=== PATIENT | male | born 1940 | race Caucasian/White ===

== ENCOUNTER → 2023-09-26 14:08 | Outpatient (REF) | payer MEDICARE, OTHER, SELFPAY | LOC: HWRCS 14:08 | PROVIDERS: ATTENDING PHYSICIAN Physician Assistant; FAMILY PHYSICIAN Internal Medicine | DX: I10 Essential (primary) hypertension (principal); R94.31 Abnormal electrocardiogram [ECG] [EKG] | CPT/HCPCS: 93306 ==

== ENCOUNTER → 2024-06-04 07:16 | Outpatient (REF) | payer MEDICARE, OTHER, SELFPAY ==
[2024-06-04 08:17] LABS: % Eosinophils 4.6 % (0-6); % Immature Granulocytes 0.3 % (0-0.5); % Lymphocytes 19.3 % (20.5-51.1); % Monocytes 12.3 % (1.7-9.3); % Neutrophils 62.5 % (42.2-75.2); Absolute Basophils 0.1 10^3/uL (0-0.2); Absolute Eosinophils 0.3 10^3/uL (0-0.7); Absolute Lymphocytes 1.4 10^3/uL (1.2-3.4); Absolute Monocytes 0.9 10^3/uL (0.1-0.6); Absolute Neutrophils 4.5 10^3/uL (1.4-6.5); Hematocrit 40.7 % (39.0-52.0); Hemoglobin 13.8 g/dL (13.0-18.0); Mean Corp Hgb Conc. 33.9 g/dL (33.0-37.0); Mean Corpuscular Hgb 30.4 pg (27.0-31.0); Mean Corpuscular Volume 89.6 fL (80.0-94.0); Mean Platelet Volume 10.6 fL (7.4-10.4); Nucleated Red Blood Cells % 0 % (-); Platelet Count 306 10^3/uL (130-400); Red Blood Cell Count 4.54 10^6/uL (4.70-6.10); White Blood Cell Count 7.2 10^3/uL (4.8-10.8)
[2024-06-04 08:36] LABS: Urine Albumin Negative (Neg - Trace); Urine Bilirubin Negative (Negative); Urine Character Clear (Clear); Urine Color Yellow; Urine Glucose Negative (Negative); Urine Ketone Negative (Negative); Urine Leukocyte Negative (Negative); Urine Nitrite Negative (Negative); Urine Occult Blood Negative (Negative); Urine Specific Gravity 1.015 (<1.030); Urine Urobilinogen Negative (Neg - 1+)
[2024-06-04 08:52] LABS: ALT (SGPT) 14 U/L (0-50); AST (SGOT) 26 U/L (17-59); Alkaline Phosphatase 51 U/L (38-126); Blood Urea Nitrogen 28 mg/dl (9-20); Calcium 9.9 mg/dl (8.4-10.2); Chloride 98 mmol/L (98-107); Glucose 88 mg/dl (70-99); HDL Cholesterol 79 mg/dl; Potassium 4.2 mmol/L (3.5-5.1); Sodium 140 mmol/L (135-145); Total Bilirubin 0.5 mg/dl (0.2-1.3); Triglyceride 87 mg/dl (10-149); Very Low Density Lipoprotein 17 mg/dl (0-30); eGFR 49.56
[2024-06-04 09:00] LABS: Albumin 4.3 g/dl (3.5-5.0); Carbon Dioxide 28 mmol/L (22-30); LDL Cholesterol, Calculated 101 mg/dl; Total Cholesterol 197 mg/dl (50-199)
== END ==
LOC: REG 07:16
PROVIDERS: ATTENDING PHYSICIAN Specialist; FAMILY PHYSICIAN Internal Medicine
DX: I10 Essential (primary) hypertension (principal); C61 Malignant neoplasm of prostate
CPT/HCPCS: 36415; 80053; 80061; 81003; 84153; 85025

== ENCOUNTER → 2024-07-20 10:04 | Outpatient (REF) | payer MEDICARE, OTHER, SELFPAY ==
[2024-07-20 15:26] LABS: Albumin 4.4 g/dl (3.5-5.0); Blood Urea Nitrogen 28 mg/dl (9-20); Carbon Dioxide 31 mmol/L (22-30); Chloride 98 mmol/L (98-107); Glucose 92 mg/dl (70-99); Phosphorus 3.9 mg/dl (2.5-4.5); Potassium 4.4 mmol/L (3.5-5.1); Sodium 141 mmol/L (135-145); eGFR 54.17
== END ==
LOC: REG 10:04
PROVIDERS: ATTENDING PHYSICIAN Internal Medicine
DX: N28.9 Disorder of kidney and ureter, unspecified (principal)
CPT/HCPCS: 36415; 80069

== ENCOUNTER 2024-10-31 08:27 | Emergency (ER) | payer MEDICARE, OTHER, SELFPAY ==
[2024-10-31 08:34] VITALS: BP 111/73
[2024-10-31 09:25] LABS: % Basophils 0.6 % (0-2); % Eosinophils 1.9 % (0-6); % Immature Granulocytes 0.3 % (0-0.5); % Lymphocytes 10.4 % (20.5-51.1); % Monocytes 10.9 % (1.7-9.3); % Neutrophils 75.9 % (42.2-75.2); Absolute Basophils 0.1 10^3/uL (0-0.2); Absolute Eosinophils 0.2 10^3/uL (0-0.7); Absolute Lymphocytes 1.1 10^3/uL (1.2-3.4); Absolute Monocytes 1.1 10^3/uL (0.1-0.6); Absolute Neutrophils 7.9 10^3/uL (1.4-6.5); Hematocrit 34.7 % (39.0-52.0); Hemoglobin 11.5 g/dL (13.0-18.0); Mean Corp Hgb Conc. 33.1 g/dL (33.0-37.0); Mean Corpuscular Hgb 28.6 pg (27.0-31.0); Mean Corpuscular Volume 86.3 fL (80.0-94.0); Mean Platelet Volume 9.6 fL (7.4-10.4); Nucleated Red Blood Cells % 0 % (-); Platelet Count 328 10^3/uL (130-400); Red Blood Cell Count 4.02 10^6/uL (4.70-6.10); Red Cell Dist. Width 12.4 % (11.5-14.5); White Blood Cell Count 10.5 10^3/uL (4.8-10.8)
[2024-10-31 09:41] LABS: ALT (SGPT) < 10 U/L (0-50); AST (SGOT) 24 U/L (17-59); Albumin 3.9 g/dl (3.5-5.0); Alkaline Phosphatase 62 U/L (38-126); Blood Urea Nitrogen 26 mg/dl (9-20); Calcium 9.7 mg/dl (8.4-10.2); Carbon Dioxide 25 mmol/L (22-30); Chloride 99 mmol/L (98-107); Glucose 124 mg/dl (70-99); Potassium 4.6 mmol/L (3.5-5.1); Sodium 134 mmol/L (135-145); Total Bilirubin 0.7 mg/dl (0.2-1.3); Total Protein 6.5 g/dl (6.3-8.2); eGFR 54.17
[2024-10-31 09:49] LABS: Troponin I < 0.012 ng/ml
[2024-10-31 09:56] VITALS: BP 127/68
[2024-10-31 10:00] VITALS: BP 136/74
[2024-10-31] MEDS: NSS 500 IV (10:39)
--- NOTE | 2024-10-31 10:39 | ED.GENMED ---
History of Present Illness
General
Chief Complaint: Chest Pain
Source: patient, spouse and family
Exam Limitations: none
Time Seen by Provider: 10/31/24 08:59
Nursing documentation reviewed up to this point in time: agreed with
History of Present Illness
History of Present Illness:
83-year-old male with past ministry of Parkinson's, hypertension, GERD presenting to the emergency department today with concerns of chest discomfort bloating pressure after eating this is progressively been worsening over the past few weeks. Over
the past few days it specifically been worsening with occasional vomiting after eating. He claims his symptoms are improved when fasting. Denies any fevers denies any shortness of breath.
Review of Systems
Review of Systems
Allergies reviewed?: Yes
All Other Systems: ROS reviewed and negative except as documented in HPI and ROS
Phy Exam
Physical Exam
Physical Exam:
GENERAL: Alert , in no apparent distress
EYE: pupils equal and reactive
NECK: Supple, no significant adenopathy.
ENT: o/p clr, mmm.
CARDIAC: Regular rate and rhythm .
LUNGS: Clear breath sounds bilaterally, no acute respiratory distress, no wheezes/rales/rhonchi
ABDOMEN: Soft, without focal tenderness, no r/g, no cvat
NEUROLOGICAL: Alert and oriented, no focal neuro deficits
SKIN: Warm and dry, skin intact.
MUSCULOSKELETAL: No edema, well perfused.
PSYCH: Normal and appropriate interaction.
Scores
Heart Score for Chest Pain Patients
STEMI patient?: No
History: Slightly or Non-Suspicious
ECG: Normal
Age: >/= 65 years
Risk Factors: >/= 3 Risk Factors or History of CAD
Troponin: </= Normal Limit
Heart Score for Chest Pain Patients: 4
Heart Score Risk: 20.3% MACE over next 6 weeks
Course
Orders/Labs/Results
Orders:
Orders
10/31/24 08:28
Electrocardiogram (*1) Urgent
Reason for Study: Chest Pain
EKG- Treatment ONCE
10/31/24 09:15
Cardiac Monitoring- Treatment ONCE
10/31/24 09:16
Complete Blood Count/With Diff Urgent
Comprehensive Metabolic Panel Urgent
Troponin I Urgent
10/31/24 10:10
Chest [CR Chest - 2 Views ] Urgent
Comment:
Reason For Exam: cp
10/31/24 10:24
0.9% Sodium Chloride 500 ml [Nss] 500 ml IV BOLUS
10/31/24 12:10
Ondansetron Orally Disint [Zofran Odt (Orally Disintegrating)] 4 mg PO NOW STA
Abnormal Lab Results
10/31/24
09:16
RBC 4.02 L 10^6/uL
(4.70-6.10)
Hgb 11.5 L g/dL
(13.0-18.0)
Hct 34.7 L %
(39.0-52.0)
Absolute Neuts (auto) 7.9 H 10^3/uL
(1.4-6.5)
Absolute Lymphs (auto) 1.1 L 10^3/uL
(1.2-3.4)
Absolute Monos (auto) 1.1 H 10^3/uL
(0.1-0.6)
Neutrophils % 75.9 H %
(42.2-75.2)
Lymphocytes % 10.4 L %
(20.5-51.1)
Monocytes % 10.9 H %
(1.7-9.3)
Sodium 134 L mmol/L
(135-145)
BUN 26 H mg/dl
(9-20)
Glucose 124 H mg/dl
(70-99)
10/31/24 09:16
10/31/24 09:16
Vital Signs
Initial and Last Documented VS:
Initial Vital Signs
Temp Pulse Resp BP Pulse Ox
98.3 F 82 18 111/73 98
10/31/24 08:34 10/31/24 08:34 10/31/24 08:34 10/31/24 08:34 10/31/24 08:34
Last Documented Vital Signs
Temp Pulse Resp BP Pulse Ox
98.3 F 73 23 151/73 99
10/31/24 08:34 10/31/24 11:30 10/31/24 11:30 10/31/24 11:08 10/31/24 11:30
MDM/Problems Addressed
MDM/Problems Addressed:
83-year-old male presenting to the emergency department today with concerns of progressive dyspepsia. Worsening over the past few weeks but specifically worsened over the past few days with associated vomiting. Initial workup here with EKG that is
without significant changes from previous EKG that he was able to have faxed over from his primary care office. Otherwise vital signs are normal labs showing slight elevation of BUN to creatinine but otherwise no emergent findings. Troponin
negative ACS seems very unlikely concerning symptoms are only after eating and drinking. Here no evidence of ACS symptoms sound inconsistent with ACS normal troponin EKG without significant changes chest x-ray without emergent findings. Patient
with likely GI process GI was contacted directly. The attending physician was contacted and able to set up an appointment for him in 1 week. Additionally was given information for neurology as he was concerned of worsening Parkinson's.
*Critical Care Note
Total Time (30-74mins, 75-104mins- exclusive of procedures): Not Applicable
ED Attending Note
-
Portions of this chart may have been created with voice recognition software.� Occasional wrong word or��sound alike� substitutions may have occurred due to the inherent limitations of voice recognition software.
Discharge Plan
Departure
Patient Disposition: Home (Routine Discharge)
Date of Disposition: 10/31/24
Time of Disposition: 13:08
Patient with high blood pressure during this ER visit?: No
Condition: Good
Covid-19: Not Applicable
Discharge Problem:
Dyspepsia
Instructions: Acid Reflux and GERD in Adults (DC)
Prescriptions:
New
ondansetron 4 mg tablet,disintegrating
4 mg PO Q6H PRN (Reason: nausea and vomiting) Qty: 7 0RF
Referrals:
Giovanni Yeung MD [Active] - Follow up in 1 week
Francisco Tesfaye MD [Family Provider] -
Activity Restrictions/Additional Instructions:
You came to the emergency department today with concerns of GI symptoms. Here you have a reassuring assessment. This could be a functional GI problem. Please follow closely with GI at your scheduled appointment in 1 week and also follow-up with
the below listed neurology clinic. Return for any worsening, new or concerning symptoms.
Call to make an appointment:
[phone]
Address:
[address] [place] [address]
[address]
[place] [id number]:
8:00 am�5:00 pm
Interventions
Interventions:
*Risk Screen - Suicide Last Done: 10/31/24 08:34
*General Assessment Last Done: 10/31/24 08:34
*Neglect/Abuse Screening Last Done: 10/31/24 08:34
*ED- Fall Risk Assessment Last Done: 10/31/24 09:57
*ED COVID-19 Vaccine History Last Done: 10/31/24 09:57
ED- Cardiac Assessment Last Done: 10/31/24 09:57
Discharge Date and Time
Print Language: UKRAINIAN
[2024-10-31 11:08] VITALS: BP 151/73
[2024-10-31 12:00] VITALS: BP 151/68
[2024-10-31] MEDS: ZOFRAN ODT (ORALLY DISINTEGRATING) 4 MG PO (12:28)
[2024-10-31 13:00] VITALS: BP 150/73
== END 2024-10-31 13:27 | disposition home or self-care (01) ==
LOC: EMR 08:27
PROVIDERS: EMERGENCY PHYSICIAN Emergency Medicine; FAMILY PHYSICIAN Internal Medicine
DX: K21.9 Gastro-esophageal reflux disease without esophagitis (principal); G20.A1 Parkinson's disease without dyskinesia, without mention of fluctuations; I10 Essential (primary) hypertension; I25.10 Atherosclerotic heart disease of native coronary artery without angina pectoris
CPT/HCPCS: 99283; 96360; 71046; 80053; 84484; 85025; 93005

== ENCOUNTER 2024-11-08 06:22 | Day surgery (SDC) | payer MEDICARE, OTHER, SELFPAY | END 2024-11-08 15:09 | disposition home or self-care (01) | LOC: GI 06:22 | PROVIDERS: ATTENDING PHYSICIAN Internal Medicine Gastroenterology | DX: R13.19 Other dysphagia (principal); C15.5 Malignant neoplasm of lower third of esophagus; R07.89 Other chest pain; D49.0 Neoplasm of unspecified behavior of digestive system; K29.50 Unspecified chronic gastritis without bleeding | CPT/HCPCS: 43239; 88305; 88342; 88360 ==

== ENCOUNTER → 2024-11-13 15:50 | Outpatient (REF) | payer MEDICARE, OTHER, SELFPAY | LOC: RAD 15:50 | PROVIDERS: ATTENDING PHYSICIAN Internal Medicine Gastroenterology; FAMILY PHYSICIAN Internal Medicine | DX: K22.89 Other specified disease of esophagus (principal) | CPT/HCPCS: 71260; 74177; Q9967 ==

== ENCOUNTER 2024-11-22 06:24 | Day surgery (SDC) | payer MEDICARE, OTHER, SELFPAY ==
[2024-11-22 13:43] VITALS: BMI 22.3
[2024-11-22 13:44] VITALS: BP 135/66; BMI 22.3
[2024-11-22 17:37] VITALS: BP 118/65
[2024-11-22 17:45] VITALS: BP 149/80
[2024-11-22 18:00] VITALS: BP 156/73
== END 2024-11-22 14:40 | disposition home or self-care (01) ==
LOC: SDS 06:24
PROVIDERS: ATTENDING PHYSICIAN Internal Medicine Gastroenterology
DX: C15.5 Malignant neoplasm of lower third of esophagus (principal); R59.0 Localized enlarged lymph nodes
CPT/HCPCS: 43259

== ENCOUNTER → 2024-12-03 10:34 | Outpatient (REF) | payer MEDICARE, OTHER, SELFPAY ==
[2024-12-03 10:50] VITALS: BP 113/64; BP_SYST 71
[2024-12-03] MEDS: ANCEF 10 IV (11:27)
[2024-12-03 12:15] VITALS: BP 125/66
[2024-12-03 12:20] VITALS: BP 124/56; BP_SYST 64
[2024-12-03 12:30] VITALS: BP 114/57; BP_SYST 68
[2024-12-03 12:45] VITALS: BP 129/67; BP_SYST 80
[2024-12-03 13:10] VITALS: BP 129/67
== END ==
LOC: RADI 10:34
PROVIDERS: ATTENDING PHYSICIAN Internal Medicine Hematology & Oncology; FAMILY PHYSICIAN Internal Medicine
DX: C15.8 Malignant neoplasm of overlapping sites of esophagus (principal)
CPT/HCPCS: 36561; 76937; 77001; 99152; 99153; C1788

== ENCOUNTER → 2024-12-05 12:42 | Outpatient (REF) | payer MEDICARE, OTHER, SELFPAY ==
[2024-12-05 13:44] LABS: % Basophils 0.6 % (0-2); % Eosinophils 1.5 % (0-6); % Immature Granulocytes 0.4 % (0-0.5); % Lymphocytes 15.6 % (20.5-51.1); % Monocytes 9.6 % (1.7-9.3); % Neutrophils 72.3 % (42.2-75.2); Absolute Basophils 0.1 10^3/uL (0-0.2); Absolute Eosinophils 0.1 10^3/uL (0-0.7); Absolute Lymphocytes 1.5 10^3/uL (1.2-3.4); Absolute Monocytes 0.9 10^3/uL (0.1-0.6); Absolute Neutrophils 6.9 10^3/uL (1.4-6.5); Hematocrit 36.9 % (39.0-52.0); Mean Corp Hgb Conc. 32.5 g/dL (33.0-37.0); Mean Corpuscular Hgb 27.6 pg (27.0-31.0); Mean Corpuscular Volume 84.8 fL (80.0-94.0); Mean Platelet Volume 9.7 fL (7.4-10.4); Nucleated Red Blood Cells % 0 % (-); Platelet Count 366 10^3/uL (130-400); Red Blood Cell Count 4.35 10^6/uL (4.70-6.10); Red Cell Dist. Width 12.5 % (11.5-14.5); White Blood Cell Count 9.5 10^3/uL (4.8-10.8)
[2024-12-05 13:55] LABS: APTT 31.4 Sec (23.4-35.0); INR 1.03; PT 14.1 Sec (11.4-14.6)
[2024-12-05 14:06] LABS: ALT (SGPT) < 10 U/L (0-50); AST (SGOT) 18 U/L (17-59); Albumin 4.2 g/dl (3.5-5.0); Alkaline Phosphatase 66 U/L (38-126); Blood Urea Nitrogen 25 mg/dl (9-20); Calcium 10.1 mg/dl (8.4-10.2); Carbon Dioxide 28 mmol/L (22-30); Chloride 98 mmol/L (98-107); Glucose 95 mg/dl (70-99); Potassium 4.8 mmol/L (3.5-5.1); Sodium 137 mmol/L (135-145); Total Bilirubin 0.5 mg/dl (0.2-1.3); Total Protein 6.8 g/dl (6.3-8.2); eGFR 54.17
== END ==
LOC: REG 12:42
PROVIDERS: ATTENDING PHYSICIAN Internal Medicine Hematology & Oncology; FAMILY PHYSICIAN Internal Medicine
DX: C15.8 Malignant neoplasm of overlapping sites of esophagus (principal); I10 Essential (primary) hypertension; C61 Malignant neoplasm of prostate; J30.0 Vasomotor rhinitis; N28.9 Disorder of kidney and ureter, unspecified; G20.B1 Parkinson's disease with dyskinesia, without mention of fluctuations; K22.89 Other specified disease of esophagus; R59.0 Localized enlarged lymph nodes; C15.9 Malignant neoplasm of esophagus, unspecified
CPT/HCPCS: 36415; 80053; 85025; 85610; 85730

== ENCOUNTER 2024-12-19 06:22 | Day surgery (SDC) | payer MEDICARE, OTHER, SELFPAY ==
[2024-12-19] VITALS (8 sets, daily range): BP systolic 119–143; BP diastolic 55–69; BMI 23.3
[2024-12-19] MEDS: NORMOSOL-R/PLASMALYTE-A 1000 IV (09:09)
[2024-12-19] MEDS: HEPARIN 5000 UNITS SC (09:09)
[2024-12-19] MEDS: TYLENOL ORAL SOLUTION 1000 MG PO (09:10)
--- NOTE | 2024-12-19 09:48 | CM ---
Addendum entered by Christine Squires RN 12/19/24 14:38:
CM spoke with patient's and she stated that she does not want the hospital bed. CM updated patient's that tube feeding may not be covered by insurance. She is willing to pay privately if needed. CM will continue to follow.
Addendum entered by Christine Squires RN 12/19/24 13:59:
MICK spoke with Jocelyne at [facility]. She is unable to confirm that patient will be approved for tube feeding through medicare. She will contact this CM with updates. CM made Dr. Cornell aware that tube feedings may not be covered and patient may not
tolerate tube feedings. No change in discharge plan at this time.
CM updated SANG Shanks with tube feeding challenges. Rosa Hunt will continue to follow patient as an outpatient.
CM updated CM director with discharge planning barriers and tube feeding approval.
Addendum entered by Christine Squires RN 12/19/24 11:51:
CM confirmed that patient is able to take liquid PO. As per Jocelyne at [facility], tube feedings will have to be approved by Medicare and the clinical direct mail clerk at [facility]. CM sent additional clinical via [facility] for clinical review. Approval
for patient's tube feeds, would take up to [address]
CM [address]. Cornell with delay in approval for tube feedings. Plan at this time is that patient will take Ensure at home with plan to wait for tube feeding approval.
CM will await final script for tube feedings.
Addendum entered by Christine Squires RN 12/19/24 10:19:
Mick spoke with Micha at inpatient nutrition. She stated that she is unable to see patient in the PACU as the patient is not admitted. CM spoke with Leta Mendez and she will make recommendations for tube feedings.
MICK spoke with patient's and she stated that patient cannot take anything PO. CM will confirm with Dr. Cornell.
Original Note:
Cm was consulted for tube feedings and VN. CM updated [facility] to come out for tube feedings. Patient will also need prescribed tube feedings. CM will await surgery for prescription.
--- NOTE | 2024-12-19 11:09 | W.IMMPOSTOP ---
Surgical Immed Post Op Note
-
Primary Surgeon: Kraig
Assisting Surgeon: Juan Luis PGY1; Yamilet BARNESA
Pre-op Diagnosis: Esophageal cancer
Post-op Diagnosis: Same
Procedure Performed: Robot assisted laparoscopic jejunostomy tube
Anesthesia Type: GETA
Specimen / Cultures: None
Estimated Blood Loss: 10cc
Complications: None immediate
Operative Findings: 16 fr jejunostomy tube, 2cc saline in the balloon, witzel technique
--- NOTE | 2024-12-19 11:10 | OR.RPT ---
Operative Report
Operative Report
Primary Surgeon: Kraig
Assisting Surgeon: Juan Luis PGY1; Yamilet CHUA
Pre-op Diagnosis: Esophageal cancer
Post-op Diagnosis: Same
Procedure Performed: Robot assisted laparoscopic jejunostomy tube
Anesthesia Type: GETA
Specimen / Cultures: None
Estimated Blood Loss: 10cc
Complications: None immediate
Operative Findings: 16 fr jejunostomy tube, 2cc saline in the balloon, witzel technique
Date of Surgery: 12/19/24
Indications: This 83M developed esophageal cancer. Plan for local control with chemo-radiation. Jejunostomy tube was planned in anticipation of nutritional needs during treatment.
Description of procedure: The patient was placed on the operating table in the supine position. General anesthesia was induced. A time-out was completed verifying correct patient, procedure, site, positioning, and special equipment prior to
beginning this procedure. An orogastric tube was placed. The abdomen was prepped and draped in the usual sterile fashion. A stab incision was made in left upper quadrant and the Veress needle was inserted. Proper position was confirmed by aspiration
and saline meniscus test. The abdomen was insufflated with carbon dioxide to a pressure of 12 mmHg. The patient tolerated insufflation well.
An 8mm trocar was placed in the right lower quadrant. The Veress needle as inspected and no injuries from initial trocar entry nor veress entry were identified. 2 additional 8mm trocars were placed a hand's breadth above and below the initial
trocar. The ligament of treitz was identified and an location about 40cm distal to this point was identified. It was brought up to the abdominal wall and no tension was noted. ZA 2-[address] was [address] to [address] a purse string suture at the antimesenteric
border of this location on the jejunum. A skin incision was made at the stoma site and the tube was passed into the abdomen. An enterotomy was made with hot capo in the center of the purse string area. The tube was passed into the jejunum and
threaded distally until the balloon was dunked into the lumen. The pursestring was tied to secure the tube. The small bowel was sutured over the tube in proximal direction using the witzel technique with seromuscular bites for several [id number]
with 2-0 PDS stratafix. The balloon was inflated with 2cc saline. The jejunum was approximated to the abdominal wall with 2-0 PDS Stratafix suture. The tube was fluhed with saline and flushed easily.
The instruments were withdrawn and the abdomen allowed to collapse. Trocars removed. The bumper was snugged to the skin. The trocar sites were closed with subcuticular sutures of 4-0 monocryl and topical skin adhesive.
The patient tolerated the procedure well and was taken to the postanesthesia care unit in stable condition.
--- NOTE | 2024-12-19 12:51 | W.PN.UPDATE ---
Update Note
Progress Note Update
Duration of tube feed / VN service: 90 days, may need to extend
Py has a medical condition which requires positioning the body in ways not feasible with ordinary bed. He requires head of bed 30 degrees to prevent aspiration due to tube feedings
--- NOTE | 2024-12-19 13:31 | VNURNOTE ---
Addendum entered by Ariadne Granados RN 12/19/24 14:08:
Late entry: Noted on DC instructions that pt may take in POs in addition to TF. Ok'ed by Dr Cornell to DC pt before TF initiated.
Original Note:
Chart reviewed. VN met with patient and spouse in [facility] recovery. Explained [facility] visits, schedule and homebound status. Patient and spouse are agreeable and understand that visits at home will be 2-3 x per week to assess and teach
medical and J Tube management. Spouse agreeable to learn tube feeds and pump. VN will providing TF instruction. Encouraged spouse to find a back up person for teaching as well. Spouse stated her son is a radiologist but currently in [place].
Offered to order hospital bed since patient will need HOB elevated for tube feeds. Spouse agreeable. Faxed hospital bed Rx and clinicals to [facility]. Christine /[facility] confirmed receipt.
[facility] will plan on next day visit
Per CM, awaiting approval from [facility] for TF and equip
[facility] referral completed in [facility]. Will continue to follow.
== END 2024-12-19 12:55 | disposition home or self-care (01) ==
LOC: SDS 06:22
PROVIDERS: ATTENDING PHYSICIAN Surgery
DX: C15.9 Malignant neoplasm of esophagus, unspecified (principal)
CPT/HCPCS: 44186

== ENCOUNTER 2024-12-24 07:41 | Inpatient (IN) | payer MEDICARE, OTHER, SELFPAY ==
[2024-12-20] VITALS (16 sets, daily range): BP systolic 121–166; BP diastolic 62–80; BMI 21.4
[2024-12-20] MEDS: NSS 500 IV (07:50)
[2024-12-20 07:56] LABS: % Basophils 0.1 % (0-2); % Eosinophils 0.1 % (0-6); % Immature Granulocytes 0.5 % (0-0.5); % Lymphocytes 3.9 % (20.5-51.1); % Monocytes 6.7 % (1.7-9.3); % Neutrophils 88.7 % (42.2-75.2); Absolute Immature Granulocytes 0.1 10^3/uL (0-0.05); Absolute Lymphocytes 0.7 10^3/uL (1.2-3.4); Absolute Monocytes 1.1 10^3/uL (0.1-0.6); Absolute Neutrophils 14.9 10^3/uL (1.4-6.5); Hematocrit 29.3 % (39.0-52.0); Mean Corp Hgb Conc. 34.1 g/dL (33.0-37.0); Mean Corpuscular Hgb 28.2 pg (27.0-31.0); Mean Corpuscular Volume 82.5 fL (80.0-94.0); Mean Platelet Volume 9.8 fL (7.4-10.4); Nucleated Red Blood Cells % 0 % (-); Platelet Count 384 10^3/uL (130-400); Red Blood Cell Count 3.55 10^6/uL (4.70-6.10); Red Cell Dist. Width 13.1 % (11.5-14.5); White Blood Cell Count 16.8 10^3/uL (4.8-10.8)
[2024-12-20 08:01] LABS: APTT 27.5 Sec (23.4-35.0); INR 1.08; PT 14.5 Sec (11.4-14.6)
[2024-12-20 08:10] LABS: ALT (SGPT) 13 U/L (0-50); AST (SGOT) 21 U/L (17-59); Albumin 3.5 g/dl (3.5-5.0); Alkaline Phosphatase 56 U/L (38-126); Blood Urea Nitrogen 46 mg/dl (9-20); Calcium 10.1 mg/dl (8.4-10.2); Carbon Dioxide 39 mmol/L (22-30); Chloride 93 mmol/L (98-107); Estimated Creatinine Clearance 33 ml/min; Glucose 173 mg/dl (70-99); Lipase 127 U/L (23-300); Potassium 3.8 mmol/L (3.5-5.1); Sodium 139 mmol/L (135-145); Total Bilirubin 0.7 mg/dl (0.2-1.3); Total Protein 6.1 g/dl (6.3-8.2); eGFR 45.62
[2024-12-20] MEDS: ZOFRAN 4 MG IV ×2 (08:21→10:26)
[2024-12-20] MEDS: PROTONIX IV 40 MG IV ×2 (10:29→20:39)
--- NOTE | 2024-12-20 10:37 | HPS.HSE ---
Addendum entered and electronically signed by Dillon Cornell MD 12/20/24 11:56:
I saw and examined the patient.
The Matrix Repairer's note was reviewed and I agree with the note.
Comment: Vomiting overnight, small volume. Ab exam approp. Tube study shows tube in good position. Suspect swelling around the balloon or possibly PONV related to anesthesia. 1cc was pulled from the balloon, this should leave 1cc volume. Will admit
for obs, start TF. Meds that cannot be given IV can be crushed and given through the tube. PRN anti-emetics.
Original Note:
Family Physician
-
Family Physician: Francisco Tesfaye
Chief Complaint
-
n/v
History of Present Illness
Mr Dodson is an 83 yo male with a history of stage III adenocarcinoma of the esophagus who was deemed a nonsurgical candidate with plans for chemo and radiation who had a RAL placement of J-tube yesterday to maintain nutrition during treatment. He
was discharged to home from post op surgical area with plans for home tube feedings to begin this week once supplies delivered. He developed nausea and vomiting overnight and presents for evaluation given persistent symptoms. He tolerated very
little PO intake last night including some sips of liquid and mashed potatoes prior to onset of vomiting. He did note some coffee ground tinged emesis with bile as well. He has minimal pain to his abdomen with mild incisional soreness. There is no
drainage around the j-tube site with some minimal blood on dressing. Abdomen is not distended. He does note constipation has been an ongoing issue but not worsened from baseline. He denies fevers or chills.
Medical History
Past Medical History
Past Medical History: Reports Cancer (stage III adenocarcinoma of esophagus, prostate, melanoma on back), HTN and Other (Parkinson's, hyponatremia, chronic cough)
Past Surgical History: Reports Appendectomy and Other (BL IHR, Cancerous skin lesion removal, cataracts, RAL J-Tube placement 12/19/2024)
Social History
Tobacco: Non-smoker
Alcohol: Occasional
Personal:
Living: With Family
Family History
Family History: Cancer (brother with bladder ca) and Other (Father with parkinsons)
Allergies / Home Medications
Allergies reflects when Allergies were last updated in [facility].
Home Medications with original date entered in [facility]
Allergy/Medication List:
Patient Allergies
Allergy/AdvReac Type Severity Reaction Status Date / Time
No Known Allergies Allergy Verified 12/19/24 08:47
�Medication �Instructions �Recorded �Confirmed �Type
candesartan 32 1 tab PO DAILY Blood Pressure 11/22/24 12/20/24 History
mg-hydrochlorothiazide 12.5 mg
tablet
carbidopa 25 mg-levodopa 100 mg 1.5 tab PO TID Neurological 11/22/24 12/20/24 History
tablet Condition
cholecalciferol (vitamin D3) 25 25 mcg PO DAILY Supplement 11/22/24 12/20/24 History
mcg (1,000 unit) capsule (Vitamin
D3)
multivitamin with minerals-folic 1 tab PO DAILY Supplement 11/22/24 12/20/24 History
acid 80 mcg chewable tablet
(Centrum Adult 50 Plus)
Belizean Cashew,Rutin,Hesperidin 1 dose PO DAILY Supplement 12/14/24 12/20/24 History
ipratropium bromide 21 mcg (0.03 2 spray intranasal HS Congestion 12/14/24 12/20/24 History
%) nasal spray
thiamine HCl (vitamin B1) 100 mg 100 mg PO DAILY Supplement 12/14/24 12/20/24 History
tablet
turmeric root extract 500 mg tablet 2,250 mg PO DAILY Supplement 12/14/24 12/20/24 History
Carmencita 2 cap PO DAILY Supplement 12/20/24 12/20/24 History
Review of Systems
-
History Source: Patient and Family
A 12 point ROS was completed and negative except as noted: Yes
Physical Exam
Vital Signs
Vital Signs
Temp Pulse Resp BP Pulse Ox
97.9 F 85 16 144/75 96
12/20/24 06:37 12/20/24 07:49 12/20/24 06:37 12/20/24 06:37 12/20/24 07:49
Physical Exam
General: No Apparent Distress and Comfortable
HEENT: NormoCephalic and Anicteric
GI: Soft, Non Distended, Tender (expected ttp at incisions) and Other (J-tube to the left hemiabd with minimal SSF on drain sponge)
Skin: Warm, Dry and Other (incisions with intact glue, no erythema)
Neuro: Awake and AO x 3
Psych: Calm
Laboratory Results
-
12/20/24 07:43
12/20/24 07:43
Laboratory Results
PT 14.5 Sec (11.4-14.6) 12/20/24 07:43
INR 1.08 12/20/24 07:43
APTT 27.5 Sec (23.4-35.0) 12/20/24 07:43
Total Bilirubin 0.7 mg/dl (0.2-1.3) 12/20/24 07:43
AST 21 U/L (17-59) 12/20/24 07:43
ALT 13 U/L (0-50) 12/20/24 07:43
Alkaline Phosphatase 56 U/L (38-126) 12/20/24 07:43
Lipase 127 U/L (23-300) 12/20/24 07:43
Data Reviewed
-
Diagnostic Radiology: Image Personally Visualized and interpreted, Report Reviewed by me, Discussed with Physician, Discussed with Patient and Discussed with Family
Lab Data: Labs Reviewed by me, Discussed with Physician, Discussed with Patient and Discussed with Family
Old Records: Reviewed
Impression/Plan
-
IMPRESSION: 83 yo male with a history of esophageal ca to begin chemo/xrt in the coming week who is POD #1 RAL j-tube placement for nutritional support during his treatment presenting today with N/V overnight. Suspect secondary to recent anesthesia
vs post operative edema causing intermittent UGI obstructive symptoms. Notes some minimal coffee ground emesis, expected given recent instrumentation. +Constipation at baseline. Incisions look well. IR tube study done today with patent j-tube in
good position. Leukocytosis, likely reactive to recent surgery and ongoing n/v. Mild ZACH secondary to hypovolemia/dehydration with vomiting. H/H stable. Afebrile, VSS.
PLAN:
NPO except sips/chips
Initiate TF at 20ml/hr and titrate up to goal of Jevity 1.5 75ml for 20hours a day
Gentle IVF with NSS at 80ml/hr until TF advanced to goal
Change home PO meds to via J-tube
CM consult to assist with arrangements of VNA and TF equipment for home
Analgesics/Antiemetics prn
Bowel regimen with colace via tube
SCDs/Heparin sq for VTE ppx
PPI for GI ppx
--- NOTE | 2024-12-20 10:49 | CM ---
AMEE was [facility] that patient presented back to the ER today. AMEE spoke with Jocelyne from [facility] who is currently working on arranging tube feeding.
Patient is known to [facility].
PLAN: Home with [facility] and [facility] for tube feedings.
[2024-12-20] MEDS: NSS 1000 IV ×2 (12:00→23:43)
[2024-12-20] MEDS: ATACAND 32 MG TUBE (12:00)
--- NOTE | 2024-12-20 12:47 | VNURNOTE ---
Chart reviewed.
New [facility] referral placed in [facility].
When ready for DC, request that pt be DC'ed by 1200 and supplies, equip delivered to the home by 1pm. [facility] can provide same day afternoon visit for home teaching.
CM aware of above. Awaiting coordination from [facility]- CM arranging.
[facility] will continue to follow.
[2024-12-20] MEDS: SINEMET 25-100 1.5 TABLET TUBE ×2 (12:51→21:55)
[2024-12-20] MEDS: NSS IV (16:02)
[2024-12-20] MEDS: PHENERGAN 51 MG IV (16:02)
[2024-12-20] MEDS: SINEMET 25-100 TUBE (19:57)
[2024-12-20] MEDS: NSS (PRESERVATIVE FREE) 10 ML IV (20:38)
[2024-12-20] MEDS: COLACE LIQUID 100 MG TUBE (20:38)
[2024-12-20] MEDS: HEPARIN 5000 UNITS SC (20:38)
[2024-12-21] VITALS (16 sets, daily range): BP systolic 101–155; BP diastolic 43–84; BMI 21.8
--- NOTE | 2024-12-21 00:50 | PTCARENOTE ---
Addendum entered by Yadi Amador RN 12/21/24 05:42:
Tube feed on hold per ACCESS TECH. Pt cont to have some episode of emesis. C/o back pain. Emesis stills appears brown and black color.
Addendum entered by Yadi Amador RN 12/21/24 01:54:
Pt had another episode of emeses, ~300 ml. Black brown color. pt c/o back pain . See MAR. VSS. TF infusion at 20 ml/hr. Unable to tolerate feeding. Zofran given for nausea. Will cont w/ tx plan.
Original Note:
Pt aaox3, flat affect and forgetful at times. Pt is severely anxious and at times interfering with tx. Tube feed, Jevity 1.5 started at 20 ml/hr with 40 water flush due tp nausea and vomit. Pt had 2 episodes of moderate black/brown vomit.
Emeses tested for blood and was positive. Abd round and tender to palpitation. #25 CC placed. Lung sounds diminished, Navid 94% RA. Pt appears to be in Afib with PVC's. IVF infusion. Rt lower leg sutures and abd wound intact. Call castro within reach,
[2024-12-21] MEDS: ROXICODONE 5 MG TUBE ×2 (01:31→05:32)
[2024-12-21] MEDS: ZOFRAN 4 MG IV (01:31)
[2024-12-21 05:46] LABS: Hematocrit 26.7 % (39.0-52.0); Hemoglobin 8.9 g/dL (13.0-18.0); Mean Corp Hgb Conc. 33.3 g/dL (33.0-37.0); Mean Platelet Volume 10.4 fL (7.4-10.4); Platelet Count 393 10^3/uL (130-400); Red Blood Cell Count 3.18 10^6/uL (4.70-6.10); Red Cell Dist. Width 13.3 % (11.5-14.5); White Blood Cell Count 15.8 10^3/uL (4.8-10.8)
[2024-12-21 06:10] LABS: Blood Urea Nitrogen 57 mg/dl (9-20); Calcium 9.6 mg/dl (8.4-10.2); Carbon Dioxide 35 mmol/L (22-30); Chloride 97 mmol/L (98-107); Estimated Creatinine Clearance 35 ml/min; Glucose 188 mg/dl (70-99); Potassium 3.7 mmol/L (3.5-5.1); Sodium 141 mmol/L (135-145); eGFR 49.56
[2024-12-21] MEDS: DILAUDID 0.5 MG IV ×2 (08:19→22:41)
[2024-12-21] MEDS: ORETIC 12.5 MG TUBE (08:55)
[2024-12-21] MEDS: SINEMET 25-100 1.5 TABLET TUBE ×3 (08:55→21:59)
[2024-12-21] MEDS: COLACE LIQUID 100 MG TUBE (08:55)
[2024-12-21] MEDS: HEPARIN 5000 UNITS SC ×2 (08:55→22:04)
[2024-12-21] MEDS: ATACAND 32 MG TUBE (08:56)
--- NOTE | 2024-12-21 09:18 | W.PN.GS2 ---
Today's Communication / Plan
-
SBFT
Assessment / Plan
-
83M POD2 s/p RAL j-tube placement with pSBO
AFVSS
Vomiting overnight
NG plased this am this 2200 dark bilious output.
Plan for SBFT today
IVF
PRN pain meds and antiemetics
DVT ppx
Subjective Data
-
Date of Service: December 21, 2024
AFVSS, Continues with n/v, he is passing small flatus
Objective Data
-
Intake and Output
12/20/24 12/21/24 12/22/24
06:59 06:59 06:59
Intake Total 1740 / 1740
Output Total 450 / 450
Balance 1290 / 1290
Intake:
IV fluids (Total) 1160 / 1160
Tube feeding 280 / 280
Feeding tube flush amount 300 / 300
Output:
Urine, Voided 450 / 450
Other:
How many times incontinent 1
MODERATE amount urine
How many times incontinent 2
SATURATED amount urine
Number of immeasurable emeses? 5
Vital Signs
Temp Pulse Resp BP Pulse Ox
98.2 F 70 16 150/76 95
12/21/24 00:20 12/21/24 08:56 12/20/24 06:37 12/21/24 08:56 12/20/24 20:00
Lab Results
12/21/24 05:02
12/21/24 05:02
Calcium 9.6 mg/dl (8.4-10.2) 12/21/24 05:02
Total Bilirubin 0.7 mg/dl (0.2-1.3) 12/20/24 07:43
AST 21 U/L (17-59) 12/20/24 07:43
ALT 13 U/L (0-50) 12/20/24 07:43
Alkaline Phosphatase 56 U/L (38-126) 12/20/24 07:43
Total Protein 6.1 g/dl (6.3-8.2) L 12/20/24 07:43
Albumin 3.5 g/dl (3.5-5.0) 12/20/24 07:43
Physical Exam
-
Gen: NAD
bd: soft, mild distention, incisions cdi, nt
Patient has a hooks catheter: No
Patient has a central line: Yes (port)
--- NOTE | 2024-12-21 10:00 | PTCARENOTE ---
ngt placeed as ordered. drained 2200 dark bile
[2024-12-21] MEDS: NSS 1000 IV (14:16)
[2024-12-21] MEDS: NSS (PRESERVATIVE FREE) 10 ML IV (15:47)
[2024-12-21] MEDS: PROTONIX IV 40 MG IV (15:47)
--- NOTE | 2024-12-21 19:18 | W.IMMPOSTOP ---
Surgical Immed Post Op Note
-
Primary Surgeon: Kraig
Assisting: Harmony LERNER
Pre-op Diagnosis: Jejunostomy tube malfunction
Post-op Diagnosis: Small bowel obstruction
Procedure Performed: Diagnostic laparoscopy, revision of jejunostomy tube
Anesthesia Type: GETA
Specimen / Cultures: None
Estimated Blood Loss: 3cc
Complications: None immediate
Operative Findings: Small bowel appeared kinked at the point of fixation to the abdominal wall. The small bowel was taken down from the wall and repositioned to relieve the angulation. The small bowel was reapproximated to the abdominal wall with
2-0 silk suture. The belly was desufflated under vision and the bowel was monitored to ensure no sharp angulation occurred.
updated in person
Plan for NGT to LIWS for now, sips and chips, monitor for bowel function and NG output
[2024-12-21] MEDS: CHLORASEPTIC/SORE THROAT SPRAY 1 SPRAY PO (23:48)
[2024-12-22] VITALS (7 sets, daily range): BP systolic 105–132; BP diastolic 49–75
[2024-12-22] MEDS: NSS 1000 IV ×2 (05:58→18:22)
[2024-12-22 08:37] LABS: % Basophils 0.2 % (0-2); % Eosinophils 0.2 % (0-6); % Immature Granulocytes 0.4 % (0-0.5); % Lymphocytes 10.3 % (20.5-51.1); % Monocytes 9.6 % (1.7-9.3); % Neutrophils 79.3 % (42.2-75.2); Absolute Immature Granulocytes 0.1 10^3/uL (0-0.05); Absolute Lymphocytes 1.4 10^3/uL (1.2-3.4); Absolute Monocytes 1.3 10^3/uL (0.1-0.6); Absolute Neutrophils 10.5 10^3/uL (1.4-6.5); Hematocrit 22.9 % (39.0-52.0); Hemoglobin 7.5 g/dL (13.0-18.0); Mean Corp Hgb Conc. 32.8 g/dL (33.0-37.0); Mean Corpuscular Hgb 28.5 pg (27.0-31.0); Mean Corpuscular Volume 87.1 fL (80.0-94.0); Mean Platelet Volume 10.1 fL (7.4-10.4); Nucleated Red Blood Cells % 0 % (-); Platelet Count 296 10^3/uL (130-400); Red Blood Cell Count 2.63 10^6/uL (4.70-6.10); Red Cell Dist. Width 13.6 % (11.5-14.5); White Blood Cell Count 13.2 10^3/uL (4.8-10.8)
[2024-12-22] MEDS: ORETIC 12.5 MG TUBE (08:41)
[2024-12-22] MEDS: SINEMET 25-100 1.5 TABLET TUBE ×3 (08:41→22:45)
[2024-12-22] MEDS: HEPARIN 5000 UNITS SC ×2 (08:41→20:20)
[2024-12-22] MEDS: ATACAND 32 MG TUBE (08:41)
[2024-12-22 09:00] LABS: Blood Urea Nitrogen 54 mg/dl (9-20); Calcium 8.8 mg/dl (8.4-10.2); Carbon Dioxide 37 mmol/L (22-30); Chloride 103 mmol/L (98-107); Estimated Creatinine Clearance 35 ml/min; Glucose 103 mg/dl (70-99); Potassium 3.2 mmol/L (3.5-5.1); Sodium 144 mmol/L (135-145); eGFR 49.56
[2024-12-22] MEDS: ROXICODONE ORAL SOLUTION 5 MG TUBE (09:00)
[2024-12-22] MEDS: KCL 270 MEQ IV (11:06)
--- NOTE | 2024-12-22 11:14 | PTCARENOTE ---
Addendum entered by Renita Khalil RN 12/22/24 14:59:
repeat H&H at 1400 7.6; output in NGT brown/green at this time. This RN communicated with surgery, sent pic of NGT output via TT, no new orders at this time. NGT continuing on low intermittent suction, J tube flushed with 30 ml tap water per MD
order. K rider infusing through R subq port. Protective B/L heel and sacrum foams placed on patient by this RN.
Original Note:
Patient's R nare NGT set to low intermittent suction per MD order, draining dark brown/red output in canister. Patient resting in bed, states no concerns other than mild discomfort at NGT insertion site/sore throat relieved with PRN sore throat
spray and 5 mg oxycodone solution - see MAR. VSS. J tube okay to use for medication administration per surgery. Surgery team made aware of NGT output, sent pic via TT, repeat H&H ordered for 1400, no new orders at this time.
--- NOTE | 2024-12-22 12:50 | W.PN.GS2 ---
Addendum entered and electronically signed by Dylon Esparza MD 12/22/24 19:01:
I saw and examined the patient.
The COSMETICS COUNTER MANAGER's note was reviewed and I agree with the note.
�Repeat Hb stable
Original Note:
Today's Communication / Plan
-
NPO/NGT to suction
Trend h/h
C/W PPI
Assessment / Plan
-
83M with a h/o esophageal ca POD 3 s/p RAL j-tube placement for nutritional support while undergoing chemo who presented with pSBO now POD #1 dx lap with revision of J-tube
AFVSS
NGT placed prior to RTOR for decompression; initially bilious outputs this am, nursing reported that after initial exam some blood was noted
J-tube in place
Acute blood loss anemia superimposed on chronic anemia
Hypokalemia, Cr elevated but similar to baseline
Leukocytosis trending down
Plan:
Continue NGT for decompression until good bowel recovery
Meds via J-tube, will initiate TF once passing flatus/good bowel recovery
Replace Kcl, continue IVF
Analgesics prn
h/h this afternoon and in am, follow BMP
CM/Nutrition following for home care arrangements and home tube feeds upon d/c
c/w heparin sq for vte ppx for now
Subjective Data
-
Date of Service: December 22, 2024
Patient seen and examined at bedside with Dr. Esparza. Unsure if he has passed flatus. C/O sore throat. Some incisional pain. Denies n/v.
Objective Data
-
Intake and Output
12/21/24 12/22/24 12/23/24
06:59 06:59 06:59
Intake Total 1740 / 1740 1160 / 1160
Output Total 450 / 450 3250 / 3250
Balance 1290 / 1290 -2089 /
Intake:
IV fluids (Total) 1160 / 1160 1100 / 1100
normosol 100 / 100
Tube feeding 280 / 280
Feeding tube flush amount 300 / 300
Amount instilled into GI Tube ( 60 / 60
Total)
[place] Sump 60 / 60
Output:
Gastrointestinal tube output ( 2500 / 2500
Total)
[place] Sump 2500 / 2500
Urine, Voided 450 / 450 750 / 750
Other:
How many times incontinent 1
MODERATE amount urine
How many times incontinent 2
SATURATED amount urine
Number of immeasurable emeses? 5
Vital Signs
Temp Pulse Resp BP Pulse Ox
98.2 F 54 16 123/57 98
12/22/24 11:15 12/22/24 11:15 12/22/24 11:15 12/22/24 11:15 12/22/24 11:15
Lab Results
12/22/24 08:24
Calcium 8.8 mg/dl (8.4-10.2) 12/22/24 08:24
Total Bilirubin 0.7 mg/dl (0.2-1.3) 12/20/24 07:43
AST 21 U/L (17-59) 12/20/24 07:43
ALT 13 U/L (0-50) 12/20/24 07:43
Alkaline Phosphatase 56 U/L (38-126) 12/20/24 07:43
Total Protein 6.1 g/dl (6.3-8.2) L 12/20/24 07:43
Albumin 3.5 g/dl (3.5-5.0) 12/20/24 07:43
Physical Exam
-
Gen: NAD
Abd: soft, mild distention, incisions cdi, mildly tender
Jtube intact/clamped
NGT with bilious output
Patient has a hooks catheter: No
Patient has a central line: Yes (port)
[2024-12-22 14:28] LABS: Hematocrit 22.9 % (39.0-52.0); Hemoglobin 7.6 g/dL (13.0-18.0)
--- NOTE | 2024-12-22 14:49 | CM ---
Patient resting, spoke w/ spouse for initial assessment. Patient is a 83 yo male with a history of stage III adenocarcinoma of the esophagus who was deemed a nonsurgical candidate with plans for chemo and radiation who had a RAL placement of J-tube
yesterday to maintain nutrition during treatment.
Patient was discharged to home on 12/19 from post op surgical area with plans for home tube feedings to begin this week once supplies delivered. He developed nausea and vomiting overnight and presents for evaluation given persistent symptoms.
Patient resides w/ spouse in a 3rd flr, 2 technology specialist apartment- elevator access. Independent w/ ambulating, no device required. Independent w/ ADLs. No SNF/HC hx reported. [facility] referred to and is following for when patient is d/c so a VN can do a same day
home visit for TF teaching. Requesting patient be d/c by 12 pm noon. CM is currently arranging tube feedings through [facility], hoping a delivery can occur at 1 pm on day of d/c.
Spoke w/ spouse, aware of the ongoing plan of tube feedings and [facility] once patient is home. Spouse stating patient needs a hospital bed and inquiring about the dimensions to ensure it is placed in a room that is big enough. CM shared CM on Tuesday
will have to follow up regarding this to coordinate w/ [facility].
Address, points of contact and insurance verified
PCP: Francisco Tesfaye
Pharmacy: [facility]
Patient is admitted as obs. GAMEZ form verbally reviewed w/ patient, copy left at bedside, copy on chart
Plan: Home w/ [facility] and [facility] for tube feedings.
CM to continue to coordinate and arrange w/ [facility] and [facility]
--- NOTE | 2024-12-22 18:00 | PTCARENOTE ---
NGT with green output at this time, order to clamp for 2 hours and then return to low intermittent suction for 2 hours around the clock per MD. Oral suction set up in room d/t patient having excessive oral secretions, weak cough; per spouse at
bedside, patient with excessive oral secretions and chronic cough prior to admin, patient states sore throat from NGT insertion and trouble clearing/swallowing secretions because of this. PRN sore throat spray at bedside, Monet set up in room by
this RN, patient orally suctioned PRN for white thin secretions. IVF infusing through [facility] port, patient's spouse and son at bedside updated on plan of care by this RN.
[2024-12-22] MEDS: PROTONIX IV 40 MG IV (20:19)
[2024-12-22] MEDS: NSS (PRESERVATIVE FREE) 10 ML IV (20:19)
[2024-12-23] VITALS (8 sets, daily range): BP systolic 104–145; BP diastolic 51–69; PULSE 78
[2024-12-23] MEDS: ROXICODONE ORAL SOLUTION 5 MG TUBE (01:07)
[2024-12-23] MEDS: NSS 1000 IV (05:53)
--- NOTE | 2024-12-23 06:55 | W.PN.GS2 ---
Today's Communication / Plan
-
NGT clamp trial
Start TF
Assessment / Plan
-
83M with a h/o esophageal ca POD 4 s/p RAL j-tube placement for nutritional support while undergoing chemo who presented with pSBO now POD #2 dx lap with revision of J-tube
AFVSS
NGT output light and bile tinged, low output
J-tube in place
Labs pending, trending K, Hb, WBC
Plan:
Clamped NG 6:45AM
Meds via J-tube
Start TF 10AM
Check residual NGT 1PM and DC NG tube if reasonable
F/U labs, CBC, BMP, Mg, Phos
Analgesics prn
CM/Nutrition following for home care arrangements and home tube feeds upon d/c
c/w heparin sq for vte ppx for now
Subjective Data
-
Date of Service: December 23, 2024
AFVSS, denies n/v, unsure about flatus, no issues with 2 hour clamping trial
Objective Data
-
Intake and Output
12/21/24 12/22/24 12/23/24
06:59 06:59 06:59
Intake Total 1740 / 1740 1160 / 1160 2049
Output Total 450 / 450 3250 / 3250 2159 / 216
Balance 1290 / 1290 -2090 / -209 -110 / -110
Intake:
Oral fluids 0 / 0
IV fluids (Total) 1160 / 1160 1100 / 1100 1600 / 1600
normosol 100 / 100
IV piggybacks 270 / 270
Tube feeding 280 / 280
Feeding tube flush amount 300 / 300 180 / 180
Amount instilled into GI Tube ( 60 / 60
Total)
[place] Sump 60 / 60
Output:
Gastrointestinal tube output ( 2500 / 2500 960 / 960
Total)
[place] Sump 2500 / 2500 960 / 960
Urine, Voided 450 / 450 750 / 750 1200 / 1200
Other:
Number of approximated MODERATE 1
amounts of urine
How many times incontinent 1
MODERATE amount urine
How many times incontinent 2
SATURATED amount urine
Number of immeasurable emeses? 5
Vital Signs
Temp Pulse Resp BP Pulse Ox
98.1 F 80 16 108/59 96
12/23/24 03:18 12/23/24 03:18 12/23/24 03:18 12/23/24 03:18 12/23/24 03:18
Calcium 8.8 mg/dl (8.4-10.2) 12/22/24 08:24
Total Bilirubin 0.7 mg/dl (0.2-1.3) 12/20/24 07:43
AST 21 U/L (17-59) 12/20/24 07:43
ALT 13 U/L (0-50) 12/20/24 07:43
Alkaline Phosphatase 56 U/L (38-126) 12/20/24 07:43
Total Protein 6.1 g/dl (6.3-8.2) L 12/20/24 07:43
Albumin 3.5 g/dl (3.5-5.0) 12/20/24 07:43
Physical Exam
-
Gen: NAD
Abd: soft, very mild distention, approp ttp, incisions cdi
Patient has a hooks catheter: No (condom cath)
Patient has a central line: Yes (port)
[2024-12-23 08:17] LABS: Hematocrit 22.8 % (39.0-52.0); Hemoglobin 7.4 g/dL (13.0-18.0); Mean Corp Hgb Conc. 32.5 g/dL (33.0-37.0); Mean Corpuscular Hgb 28.4 pg (27.0-31.0); Mean Corpuscular Volume 87.4 fL (80.0-94.0); Mean Platelet Volume 10.1 fL (7.4-10.4); Platelet Count 300 10^3/uL (130-400); Red Blood Cell Count 2.61 10^6/uL (4.70-6.10); Red Cell Dist. Width 13.5 % (11.5-14.5); White Blood Cell Count 10.4 10^3/uL (4.8-10.8)
[2024-12-23 08:36] LABS: Blood Urea Nitrogen 48 mg/dl (9-20); Calcium 8.6 mg/dl (8.4-10.2); Carbon Dioxide 34 mmol/L (22-30); Chloride 108 mmol/L (98-107); Estimated Creatinine Clearance 41 ml/min; Glucose 93 mg/dl (70-99); Magnesium 2.4 mg/dl (1.6-2.3); Phosphorus 2.9 mg/dl (2.5-4.5); Potassium 3.5 mmol/L (3.5-5.1); Sodium 146 mmol/L (135-145); eGFR 59.63
[2024-12-23] MEDS: ATACAND 32 MG TUBE (09:36)
[2024-12-23] MEDS: SINEMET 25-100 1.5 TABLET TUBE ×3 (09:36→21:22)
[2024-12-23] MEDS: ORETIC 12.5 MG TUBE (09:36)
[2024-12-23] MEDS: PROTONIX IV 40 MG IV ×2 (09:37→21:23)
[2024-12-23] MEDS: HEPARIN 5000 UNITS SC ×2 (09:37→21:22)
[2024-12-23] MEDS: D5/0.45%NSS with KCL 20 MEQ 1000 IV ×2 (09:37→21:25)
--- NOTE | 2024-12-23 11:40 | PTCARENOTE ---
pt set up to start tube feeds this afternoon at 10ml/hr with hourly 40ml flush. jevity 1.5 started through J tube. pt and educated. put NGT unclamped and set up to low intermittent wall suction. output to be monitored and reported back to MD.
pt educated to report any n/v and or abdominal discomfort.
--- NOTE | 2024-12-23 17:09 | PTCARENOTE ---
pt tolerating 10ml/hr feeds with 40ml flush. per order increased to 20ml/hr for the feeds. increase q6 per orders as long as tolerating
[2024-12-23 18:15] LABS: Glucose - Point of Care 134 mg/dl (70-99)
[2024-12-23] MEDS: NOVOLOG FLEXPEN-LOW RESISTANCE SC (18:16)
[2024-12-23] MEDS: NSS (PRESERVATIVE FREE) 10 ML IV (21:24)
[2024-12-23 21:42] LABS: Glucose - Point of Care 152 mg/dl (70-99)
[2024-12-23 23:22] LABS: Glucose - Point of Care 151 mg/dl (70-99)
[2024-12-23] MEDS: NOVOLOG FLEXPEN-LOW RESISTANCE 1 UNITS SC (23:40)
[2024-12-24] VITALS (7 sets, daily range): BP systolic 96–137; BP diastolic 50–60; PULSE 76; O2SAT 98
[2024-12-24 05:47] LABS: Glucose - Point of Care 146 mg/dl (70-99)
[2024-12-24] MEDS: NOVOLOG FLEXPEN-LOW RESISTANCE SC ×2 (05:52→17:48)
[2024-12-24 05:54] LABS: Hemoglobin 6.8 g/dL (13.0-18.0); Mean Corp Hgb Conc. 32.4 g/dL (33.0-37.0); Mean Corpuscular Volume 86.4 fL (80.0-94.0); Mean Platelet Volume 10.2 fL (7.4-10.4); Platelet Count 300 10^3/uL (130-400); Red Blood Cell Count 2.43 10^6/uL (4.70-6.10); Red Cell Dist. Width 13.3 % (11.5-14.5); White Blood Cell Count 9.4 10^3/uL (4.8-10.8)
[2024-12-24 06:29] LABS: Blood Urea Nitrogen 42 mg/dl (9-20); Calcium 8.5 mg/dl (8.4-10.2); Carbon Dioxide 34 mmol/L (22-30); Chloride 109 mmol/L (98-107); Estimated Creatinine Clearance 49 ml/min; Glucose 134 mg/dl (70-99); Magnesium 2.2 mg/dl (1.6-2.3); Potassium 3.6 mmol/L (3.5-5.1); Sodium 142 mmol/L (135-145); eGFR > 60.00
--- NOTE | 2024-12-24 06:44 | PTCARENOTE ---
Discussed Hbg result of 6.8 with money laundering investigator [employer] Jean-Paul Preciado. As per TT Sx will make a determination when they come in during day shift of the course of action. No new orders received. No s/s of distress assessed.
--- NOTE | 2024-12-24 07:02 | W.PN.GS2 ---
Today's Communication / Plan
-
See plan
Assessment / Plan
-
83M with a h/o esophageal ca POD 5 s/p RAL j-tube placement for nutritional support while undergoing chemo who presented with pSBO now POD #3 dx lap with revision of J-tube
AFVSS
NGT DC'ed yesterday
J-tube in place
K improved, Mg Phos OK
WBC norm'ed
Hb 6.8 today
Plan:
TF ramp up
Meds via J-tube
Hold on transfusion as long as HD stable
Analgesics prn
PT/OT
CM/Nutrition following for home care arrangements and home tube feeds upon d/c - Hospital bed, VN for TF, Home PT
D/w Oncology teams plan for initiation of chemoXRT
c/w heparin sq for vte ppx for now
Subjective Data
-
Date of Service: December 24, 2024
AFVSS, feeling better, denies n/v, grace TF @ 40cc/hr
Objective Data
-
Intake and Output
12/23/24 12/24/24 12/25/24
06:59 06:59 06:59
Intake Total 2049 1381 / 1381
Output Total 2159 1775 / 1775
Balance -110 / -110 -394 / -394
Intake:
Oral fluids 0 / 0 120 / 120
IV fluids (Total) 1600 / 1600 960 / 960
IV piggybacks 270 / 270
Tube feeding 61 / 61
Feeding tube flush amount 180 / 180 240 / 240
Output:
Gastrointestinal tube output ( 960 / 960 400 / 400
Total)
[place] Sump 960 / 960 400 / 400
Urine, Voided 1200 / 1200 1375 / 1375
Other:
Number of approximated MODERATE 1
amounts of urine
Vital Signs
Temp Pulse Resp BP Pulse Ox
97.9 F 75 16 118/53 99
12/24/24 03:06 12/24/24 03:06 12/24/24 03:06 12/24/24 03:06 12/24/24 03:06
Lab Results
12/24/24 05:36
12/24/24 05:36
Calcium 8.5 mg/dl (8.4-10.2) 12/24/24 05:36
Phosphorus 2.9 mg/dl (2.5-4.5) 12/23/24 08:08
Magnesium 2.2 mg/dl (1.6-2.3) 12/24/24 05:36
Total Bilirubin 0.7 mg/dl (0.2-1.3) 12/20/24 07:43
AST 21 U/L (17-59) 12/20/24 07:43
ALT 13 U/L (0-50) 12/20/24 07:43
Alkaline Phosphatase 56 U/L (38-126) 12/20/24 07:43
Total Protein 6.1 g/dl (6.3-8.2) L 12/20/24 07:43
Albumin 3.5 g/dl (3.5-5.0) 12/20/24 07:43
Physical Exam
-
Gen: NAD
Abd: soft, nd, nt, incisions cdi
Patient has a hooks catheter: No (condom cath)
Patient has a central line: Yes (port)
[2024-12-24 08:12] LABS: Glucose - Point of Care 151 mg/dl (70-99)
[2024-12-24] MEDS: HEPARIN 5000 UNITS SC ×2 (09:28→20:52)
[2024-12-24] MEDS: ORETIC 12.5 MG TUBE (09:28)
[2024-12-24] MEDS: ATACAND 32 MG TUBE (09:28)
[2024-12-24] MEDS: SINEMET 25-100 1.5 TABLET TUBE ×3 (09:28→20:53)
[2024-12-24] MEDS: PROTONIX IV 40 MG IV ×2 (09:29→20:52)
[2024-12-24] MEDS: D5/0.45%NSS with KCL 20 MEQ 1000 IV (09:32)
--- NOTE | 2024-12-24 09:33 | VNURNOTE ---
Hospital bed arranged through [facility] by this author. Clinicals and rx faxed to them on 12/19.. Called [facility], spoke with Xuan. She confirmed they rec'ed info. This author requested [facility] contact spouse to arrange delivery.
Hospital bed w/[facility] to follow, referral accepted
TF supplies and equip to be arranged by CM- pending
[2024-12-24 12:33] LABS: Glucose - Point of Care 164 mg/dl (70-99)
--- NOTE | 2024-12-24 13:28 | CM ---
CM spoke with [facility] Liaison. Needed additional clinical for processing. Receive rx for TF from general surgery, updtd notes from RD, GI and ST evaluation that was requested by [facility] for insurance. All faxed to [facility] for
processing. CM continues to be available to patient/family and is monitoring medical plan for needs at discharge.
Plan: Discharge to home with VN services and TF supplies through [facility].
[2024-12-24] MEDS: NOVOLOG FLEXPEN-LOW RESISTANCE 1 UNITS SC (13:52)
--- NOTE | 2024-12-24 14:35 | PTCARENOTE ---
Addendum entered by Lisbet Blum RN 12/24/24 18:44:
pt tube feeds increased to 60ml/hr with 40ml/hr automatic flush. pt transferred to [facility] after increase of tube feeds.
Original Note:
RN received report of critical lab finding..hgb 6.8. MD made aware and per note are monitoring at this time. pt tolerating tube feeds and was increased to 50ml/hr at 1230 this afternoon. noon sugar 163 so did receive 1 unit of insulin this
afternoon. pt allowed clear liquid diet for comfort purpose along with tube feeds. patient using suction at bedside and educated on importance of oral hygiene
[2024-12-24 17:46] LABS: Glucose - Point of Care 134 mg/dl (70-99)
[2024-12-24] MEDS: FLUSH (NSS) 7 FLUSH IV (20:52)
[2024-12-24] MEDS: NSS (PRESERVATIVE FREE) 10 ML IV (20:52)
--- NOTE | 2024-12-25 | PTCARENOTE ---
tube feeding at goal- tolerating- no pain n/v. type and cross sent- labs in am
[2024-12-25] MEDS: NOVOLOG FLEXPEN-LOW RESISTANCE SC ×2 (00:08→05:57)
[2024-12-25 00:17] LABS: Glucose - Point of Care 150 mg/dl (70-99)
[2024-12-25] MEDS: FLUSH (NSS) 4 FLUSH IV (05:59)
[2024-12-25 06:06] LABS: Glucose - Point of Care 145 mg/dl (70-99)
[2024-12-25 06:58] LABS: Hematocrit 21.7 % (39.0-52.0); Hemoglobin 7.1 g/dL (13.0-18.0); Mean Corp Hgb Conc. 32.7 g/dL (33.0-37.0); Mean Corpuscular Hgb 28.1 pg (27.0-31.0); Mean Corpuscular Volume 85.8 fL (80.0-94.0); Mean Platelet Volume 10.9 fL (7.4-10.4); Platelet Count 295 10^3/uL (130-400); Red Blood Cell Count 2.53 10^6/uL (4.70-6.10); Red Cell Dist. Width 13.3 % (11.5-14.5); White Blood Cell Count 9.6 10^3/uL (4.8-10.8)
[2024-12-25 07:15] LABS: Blood Urea Nitrogen 35 mg/dl (9-20); Calcium 8.3 mg/dl (8.4-10.2); Carbon Dioxide 30 mmol/L (22-30); Chloride 110 mmol/L (98-107); Estimated Creatinine Clearance 48 ml/min; Glucose 124 mg/dl (70-99); Potassium 3.5 mmol/L (3.5-5.1); Sodium 142 mmol/L (135-145); eGFR > 60.00
[2024-12-25 07:54] VITALS: BP 139/70
--- NOTE | 2024-12-25 08:13 | ED.GENMED ---
History of Present Illness
General
Chief Complaint: Abdominal Pain
Source: patient
Exam Limitations: none
Time Seen by Provider: 12/20/24 06:42
Nursing documentation reviewed up to this point in time: agreed with
History of Present Illness
History of Present Illness:
84-year-old male with history as noted presents for evaluation of vomiting after J-tube placement. Patient has esophageal cancer and required J-tube placement by Dr. Cornell yesterday. Today he returns with nausea and vomiting� describes dark
brown coffee-ground emesis.
Review of Systems
Review of Systems
All Other Systems: ROS reviewed and negative except as documented in HPI and ROS
Constitutional: Denies fever
Respiratory: Denies trouble breathing
Cardiac: Denies chest pain
ABD/GI: Reports abdominal pain, nausea and vomiting
Musculoskeletal: Denies neck pain or back pain
Neurological: Denies dizzy or headache
Phy Exam
Physical Exam
Physical Exam:
General: Well appearing and non-toxic
HEENT: protecting airway
Neck: appears supple
CV: No evidence of cyanosis
Resp: No accessory muscle use
Abd: Non-distended, appropriately tender near surgical incisions, J-tube in place
Extremities: No deformities
Neuro: Alert
Psych: Normal affect
Skin: Intact
Scores
Heart Failure Risk
Heart Failure Risk Score: Not Applicable
Heart Score for Chest Pain Patients
STEMI patient?: Not applicable
Withdrawal Assessment of Alcohol
Withdrawal Assessment Completed?: Not applicable
Course
Orders/Labs/Results
Orders:
Orders
12/20/24
EKG [Electrocardiogram (*1)] Urgent
Reason for Study: Abnormal EKG
DIETARY IP CONSULT Routine
Reason for Consult: lost weight
12/20/24 07:15
Tube Check [CR Cont Inj Eval Tube(by Rad)] Urgent
Comment:
Reason For Exam: n/v s/p J tube placement
12/20/24 07:16
SURGICAL CONSULT Urgent
Consulting Provider: Dillon Cornell
Was physician already notified: Yes
12/20/24 07:43
Type+Screen Urgent
Complete Blood Count/With Diff Urgent
Comprehensive Metabolic Panel Urgent
Lipase Urgent
PTT Urgent
Prothrombin Time Urgent
12/20/24 08:00
0.9% Sodium Chloride 500 ml [Nss] 500 ml IV 100 mls/hr
12/20/24 08:18
Ondansetron Injectable [Zofran] 4 mg IV NOW STA
12/20/24 09:59
Electrocardiogram (*1) Urgent
Reason for Study: QTc Monitoring
EKG- Treatment ONCE
Ondansetron Injectable [Zofran] 4 mg IV NOW STA
12/20/24 10:00
Pantoprazole [Protonix IV] 40 mg IV NOW STA
12/20/24 10:26
Admit Patient As Directed
Co-Sign Provider:
Level of Care: Observation services
Assign to:: Telemetry
Physician / Group: Kraig/General surgery
Diagnosis: Nausea/vomiting
Reason for Telemetry: Other
Other Reason for Telemetry: Bleeding
Date to Stop Telemetry: 12/22/24
Time to Stop Telemetry: 11:00
Code Status As Directed
Resuscitation Status: Full Code
Activity As Directed
Activity Level: Out of Bed-Early Mobility
Gastrointestinal Tubes As Directed
To suction?: No
Irrigate tube?: Yes
Irrigant: Tap Water
Frequency: Q6H
Amount in mls: 30
Irrigation Directions: irrigate after med and while clamped
Intake/ Output As Directed
Frequency: Per unit guidelines
Pneumatic Compression Sleeves As Directed
Type: Knee high
Vital Signs As Directed
Frequency: Per unit guidelines
PRN Pain Medication Management As Directed
May give lesser potent ordered pain med per pt: Yes
preference::
Protocol:: Medication orders for pain may be administered in a
manner that supports deferring to patient preference
when the pt is:
- Requesting an ordered lesser potent pain medication.
Least to most potent pain medications are defined
as: acetaminophen < NSAID < tramadol < opioids
(morphine, oxycodone, hydromorphone).
- Requesting a lesser dose of the same medication IF
ORDERED.
- Requesting a less intrusive route of administration
if both routes are prescribed by the provider (PO <
IV).
12/20/24 10:27
DX Deep Vein Thrombosis Video Routine
12/20/24 10:30
ABO2 Urgent
BBK Wristband Number:
Associate notified that ABO2 has been ordered: [id number]
Date: 12/20/24
Time: 07:55
Marketing Database Coordinator ID: [id number]
12/20/24 10:31
Oxycodone [Roxicodone] 5 mg TUBE Q4HPRN PRN
12/20/24 10:35
Carbidopa/Levodopa [Sinemet 25-100] 1.5 tablet TUBE TID
12/20/24 10:36
Case Management Consult ONCE
Case Management Consult: Durable Medical Equip
VN/Home Care
Comment: home tube feeding arrangements
Tentative Discharge Date: 12/20/24
12/20/24 11:00
0.9% Sodium Chloride 1000 ml [Nss] 1,000 ml IV 80 mls/hr
Candesartan Cilexetil [Atacand] 32 mg TUBE DAILY
12/20/24 11:12
Acetaminophen [Tylenol Oral Solution] 650 mg TUBE Q4HPRN PRN
12/20/24 13:00
Ondansetron Injectable [Zofran] 4 mg IV Q6HPRN PRN
12/20/24 14:55
Promethazine [Phenergan] 12.5 mg 0.9% Sodium Chloride 50 ml [Nss] 50 ml IV Q4HPRN
Promethazine [Phenergan] 25 mg 0.9% Sodium Chloride 50 ml [Nss] 50 ml IV NOW
12/20/24 18:00
0.9% Sodium Chloride [Nss (Preservative Free)] 10 ml IV QPM
Pantoprazole [Protonix IV] 40 mg IV QPM
12/20/24 18:30
EKG- Treatment ONCE
12/20/24 19:59
PRN Pain Medication Management As Directed
May give lesser potent ordered pain med per pt: Yes
preference::
Protocol:: Medication orders for pain may be administered in a
manner that supports deferring to patient preference
when the pt is:
- Requesting an ordered lesser potent pain medication.
Least to most potent pain medications are defined
as: acetaminophen < NSAID < tramadol < opioids
(morphine, oxycodone, hydromorphone).
- Requesting a lesser dose of the same medication IF
ORDERED.
- Requesting a less intrusive route of administration
if both routes are prescribed by the provider (PO <
IV).
12/20/24 20:00
Docusate Sodium [Colace Liquid] 100 mg TUBE BID
Heparin 5,000 units SC Q12
12/20/24 20:24
Pt Screening Request from [facility] Routine
12/20/24 23:00
Flush (0.9% Sodium Chloride) [Flush (Nss)] See Dose Instructions IV PER PROTOCOL
12/21/24 05:02
Basic Metabolic Panel IN AM
Complete Blood Count/No Diff IN AM
12/21/24 06:56
NG Tube [Gastrointestinal Tubes] As Directed
To suction?: Yes
Type of suction: Low intermittent
Small Bowel RF [RF Sm Intest ONLY-Single Cont] Routine
Comment: barium
Reason For Exam: sbo
12/21/24 07:49
HYDROmorphone [Dilaudid] 0.5 mg IV Q4HPRN PRN
12/21/24 08:00
Hydrochlorothiazide [Oretic] 12.5 mg TUBE DAILY
12/21/24 10:00
Request for Physical Therapy [NOTICE] Routine
12/21/24 13:34
HYDROmorphone [Dilaudid] 0.25 mg IV PACU-Q5MPRN PRN
Meperidine [Demerol] 12.5 mg IV PACU-Q5MPRN PRN
Morphine Sulfate 1 mg IV PACU-Q5MPRN PRN
Ondansetron Injectable [Zofran] 4 mg IV PACU-ONCEPRN PRN
Notify MD As Directed
Notify physician if: for SDS patients with known or suspected sleep obstructive sleep apnea, monitor in the
PACU.
Notify MD for any apneic/desaturation episodes
O2 Therapy [RESP] Urgent
Titrate/Wean O2 to maintain O2 sat greater than (%): 92
Special Instructions: -Provide supplemental oxygen to achieve O2 sat of 92% or greater.
-After 15 min, may wean O2 and discontinue if patient is able to maintain O2 sat of 92%
or greater during recovery period.
If patient is a discharge home, without oxygen therapy, notify anestheiologist if
unable to maintain O2 SAT of 92% or greater on room air for MD clearance.
12/21/24 13:45
Normosol (Mult Electrolytes) [Normosol-R/Plasmalyte-A] 1,000 ml IV PER PROTOCOL
12/21/24 Dinner
NPO
Allow oral meds: No
Allow clear liquids: Sips of Clears
NPO with Ice Chips: Yes
Comment: meds via [facility]
12/21/24 17:30
Fentanyl Citrate/Pf [Sublimaze] 100 mcg .ROUTE .STK-MED ONE
Lidocaine 2% Mpf [Xylocaine Mpf 2%] 100 mg .ROUTE .STK-MED ONE
Propofol [Diprivan] 20 ml .ROUTE .STK-MED
Rocuronium [place] [Rocuronium] 50 mg .ROUTE .STK-MED ONE
12/21/24 17:46
Bupivacaine Pf 0.5% [Sensorcaine 0.5% Single Dose] 30 ml .ROUTE .STK-MED ONE
12/21/24 17:50
MetroNIDAZOLE 500 MG/100 ML [Flagyl 500 mg] 100 ml .ROUTE .STK-MED
12/21/24 18:11
Rocuronium [place] [Rocuronium] 50 mg .ROUTE .STK-MED ONE
12/21/24 19:23
Oxycodone [Roxicodone Oral Solution] 10 mg TUBE Q4HPRN PRN
Oxycodone [Roxicodone Oral Solution] 5 mg TUBE Q4HPRN PRN
12/21/24 19:25
Acetaminophen [Tylenol Oral Solution] 1,000 mg TUBE Q6HPRN PRN
12/21/24 22:39
Phenol 1.4% [place] [Chloraseptic/Sore Throat [place]] See Dose Instructions PO Q2HPRN PRN
12/22/24
Telemetry Continue As Directed
Date to Stop Telemetry: 12/23/24
Time to Stop Telemetry: 11:00
12/22/24 08:24
Basic Metabolic Panel Urgent
Complete Blood Count/With Diff Urgent
12/22/24 09:38
Potassium Chloride [KCl] 40 meq Dextrose 5%/Water 250 ml [D5w] 250 ml IV NOW
12/22/24 11:00
DC Protocol for Telemetry ONCE
12/22/24 12:51
NG Tube [Gastrointestinal Tubes] As Directed
Type: Jejunostomy
To suction?: No
To straight drainage/gravity?: No
Directions to clamp NG tube: keep clamped unless tf/meds being instilled
Irrigate tube?: Yes
Irrigant: Tap Water
Frequency: Q6H
Amount in mls: 30
Irrigation Directions: Irrigate Q6H and PRN
Comment: use for meds
12/22/24 14:14
H&H Routine
12/22/24 18:00
0.9% Sodium Chloride [Nss (Preservative Free)] 10 ml IV QPM
12/22/24 20:00
0.9% Sodium Chloride [Nss (Preservative Free)] 10 ml IV QPM@2000
Pantoprazole [Protonix IV] 40 mg IV BID
12/23/24
Telemetry Continue As Directed
Date to Stop Telemetry: 12/24/24
Time to Stop Telemetry: 11:00
12/23/24 07:01
Add On- LAB Routine
Tests Added?: Mag, Phos
12/23/24 07:19
Ot Eval And Treat Routine
Physical Therapy Consult [Pt Eval And Treat] Routine
Activity Level: Out of Bed-Early Mobility
12/23/24 08:08
Basic Metabolic Panel IN AM
Complete Blood Count/No Diff IN AM
Magnesium IN AM
Phos [Phosphorus] IN AM
12/23/24 09:00
KCl 20 Meq/D5.45%Sodchl 1000ML [D5/0.45%NSS with KCL 20 MEQ] 20 meq in 1,000 ml IV 80 mls/hr
12/23/24 Lunch
Tube Feeding
At Your Request: Full Participation
Tube Feeding Product: Jevity 1.5
Initial continuous pump rate (mL/hr): 10 ml/hr
Advance to goal rate (mL/hr): 75
Additional Tube Feeding Instructions: increase by 10/cc/hr q6h until goal
Comment: 60ml water flush at start and end of tube feeds; HOB 30
12/23/24 11:00
DC Protocol for Telemetry ONCE
12/23/24 15:38
Accucheck [Bedside Glucose Monitoring] As Directed
Frequency: Q6H
Additional Instructions:: q6 with tube feeds.
12/23/24 18:00
Insulin Aspart Corrective Low [Novolog Flexpen-Low Resistance] See Protocol SC Q6
12/24/24 05:36
Basic Metabolic Panel IN AM
Complete Blood Count/No Diff IN AM
Magnesium IN AM
12/24/24 Breakfast
Clear Liquid
At Your Request: Limited Participation
Six Small Meals: Yes
Tube Feeding Product: Jevity 1.5
Initial continuous pump rate (mL/hr): 55 ml/hr
Advance to goal rate (mL/hr): 75
Additional Tube Feeding Instructions: increase by 10ml q6hr as tolerated until reaching goal rate of 75ml
Flush Continuous pump feedings with water (mL/hr): 40
12/24/24 11:00
DC Protocol for Telemetry ONCE
Abnormal Lab Results
12/20/24 12/21/24 12/22/24
07:43 05:02 08:24
WBC 16.8 H 10^3/uL 15.8 H 10^3/uL 13.2 H 10^3/uL
(4.8-10.8) (4.8-10.8) (4.8-10.8)
RBC 3.55 L 10^6/uL 3.18 L 10^6/uL 2.63 L 10^6/uL
(4.70-6.10) (4.70-6.10) (4.70-6.10)
Hgb 10.0 L g/dL 8.9 L g/dL 7.5 L g/dL
(13.0-18.0) (13.0-18.0) (13.0-18.0)
Hct 29.3 L % 26.7 L % 22.9 L %
(39.0-52.0) (39.0-52.0) (39.0-52.0)
MCHC 32.8 L g/dL
(33.0-37.0)
Abs Immat Gran (auto) 0.1 H 10^3/uL 0.1 H 10^3/uL
(0-0.05) (0-0.05)
Absolute Neuts (auto) 14.9 H 10^3/uL 10.5 H 10^3/uL
(1.4-6.5) (1.4-6.5)
Absolute Lymphs (auto) 0.7 L 10^3/uL
(1.2-3.4)
Absolute Monos (auto) 1.1 H 10^3/uL 1.3 H 10^3/uL
(0.1-0.6) (0.1-0.6)
Neutrophils % 88.7 H % 79.3 H %
(42.2-75.2) (42.2-75.2)
Lymphocytes % 3.9 L % 10.3 L %
(20.5-51.1) (20.5-51.1)
Monocytes % 9.6 H %
(1.7-9.3)
Sodium
Potassium 3.2 L mmol/L
(3.5-5.1)
Chloride 93 L mmol/L 97 L mmol/L
(98-107) (98-107)
Carbon Dioxide 39 H mmol/L 35 H mmol/L 37 H mmol/L
(22-30) (22-30) (22-30)
BUN 46 H mg/dl 57 H mg/dl 54 H mg/dl
(9-20) (9-20) (9-20)
Creatinine 1.5 H mg/dL 1.4 H mg/dL 1.4 H mg/dL
(0.7-1.3) (0.7-1.3) (0.7-1.3)
Glucose 173 H mg/dl 188 H mg/dl 103 H mg/dl
(70-99) (70-99) (70-99)
Magnesium
Total Protein 6.1 L g/dl
(6.3-8.2)
POC Glucose
12/22/24 12/23/24 12/23/24
14:14 08:08 18:14
WBC
RBC 2.61 L 10^6/uL
(4.70-6.10)
Hgb 7.6 L g/dL 7.4 L g/dL
(13.0-18.0) (13.0-18.0)
Hct 22.9 L % 22.8 L %
(39.0-52.0) (39.0-52.0)
MCHC 32.5 L g/dL
(33.0-37.0)
Abs Immat Gran (auto)
Absolute Neuts (auto)
Absolute Lymphs (auto)
Absolute Monos (auto)
Neutrophils %
Lymphocytes %
Monocytes %
Sodium 146 H mmol/L
(135-145)
Potassium
Chloride 108 H mmol/L
(98-107)
Carbon Dioxide 34 H mmol/L
(22-30)
BUN 48 H mg/dl
(9-20)
Creatinine
Glucose
Magnesium 2.4 H mg/dl
(1.6-2.3)
Total Protein
POC Glucose 134 H mg/dl
(70-99)
05/11/25 05/11/25 05/12/25
21:41 23:21 05:36
WBC
RBC 2.43 L 10^6/uL
(4.70-6.10)
Hgb 6.8 L* g/dL
(13.0-18.0)
Hct 21.0 L %
(39.0-52.0)
MCHC 32.4 L g/dL
(33.0-37.0)
Abs Immat Gran (auto)
Absolute Neuts (auto)
Absolute Lymphs (auto)
Absolute Monos (auto)
Neutrophils %
Lymphocytes %
Monocytes %
Sodium
Potassium
Chloride 109 H mmol/L
(98-107)
Carbon Dioxide 34 H mmol/L
(30)
BUN 42 H mg/dl
(-20)
Creatinine
Glucose 134 H mg/dl
(70-99)
Magnesium
Total Protein
POC Glucose 152 H mg/dl 151 H mg/dl
(70-99) (70-99)
12/24/24
05:43
WBC
RBC
Hgb
Hct
MCHC
Abs Immat Gran (auto)
Absolute Neuts (auto)
Absolute Lymphs (auto)
Absolute Monos (auto)
Neutrophils %
Lymphocytes %
Monocytes %
Sodium
Potassium
Chloride
Carbon Dioxide
BUN
Creatinine
Glucose
Magnesium
Total Protein
POC Glucose 146 H mg/dl
(70-99)
12/24/24 05:36
12/24/24 05:36
Vital Signs
Initial and Last Documented VS:
Initial Vital Signs
Temp Pulse Resp BP Pulse Ox
36.6 C 69 16 144/75 98
12/20/24 06:37 12/20/24 06:37 12/20/24 06:37 12/20/24 06:37 12/20/24 06:37
Last Documented Vital Signs
Temp Pulse Resp BP Pulse Ox
37.1 C 83 20 139/70 98
12/25/24 07:54 12/25/24 07:54 12/25/24 07:54 12/25/24 07:54 12/25/24 07:54
MDM/Problems Addressed
Differential Diagnosis Includes:
Tube migration, upper GI bleeding, obstruction
MDM/Problems Addressed:
84-year-old male presents for nausea and vomiting, coffee-ground emesis after J-tube placement yesterday. Vitals and exam as above. Labs show essentially stable hemoglobin. X-ray for tube check shows appropriate position. Case discussed with
general surgery they will admit to their service.
Chronic conditions affecting care:
Esophageal cancer
*Radiology
Radiology exam reviewed: radiology read reviewed
*Pulse Oximetry
Patient hypoxic: no
*Critical Care Note
Total Time (30-74mins, 75-104mins- exclusive of procedures): Not Applicable
Data Reviewed
Source: patient, records and spouse
Patient Management
Discussion with other providers: Plodding Machine Operator (Discussed with general surgery)
Escalation/DeEscalation of care consider admission/obs:
Admission indicated
ED Attending Note
-
Portions of this chart may have been created with voice recognition software.� Occasional wrong word or��sound alike� substitutions may have occurred due to the inherent limitations of voice recognition software.
Discharge Plan
Departure
Patient Disposition: Admit
Date of Disposition: 12/20/24
Time of Disposition: 07:16
Admit to doctor: Dr. Cornell
Presentation/result/management discussed w/ accepting MD/DO: General Surgery
Discharge Problem:
Nausea & vomiting
Interventions
Interventions:
*General Assessment Last Done: 12/20/24 06:37
*Neglect/Abuse Screening Last Done: 12/20/24 06:37
*ED- Fall Risk Assessment Last Done: 12/20/24 07:49
*ED COVID-19 Vaccine History Last Done: 12/20/24 06:37
*Nursing Disposition Last Done: 12/21/24 16:58
YZ-Sdhzik-Melodqrscs Assessment Last Done: 12/20/24 07:55
Discharge Date and Time
Discharge Date/Time: 12/21/24 16:59
--- NOTE | 2024-12-25 08:37 | W.PN.GS2 ---
Today's Communication / Plan
-
See plan
Assessment / Plan
-
83M with a h/o esophageal ca POD 6 s/p RAL j-tube placement for nutritional support while undergoing chemo who presented with pSBO now POD #4 dx lap with revision of J-tube
AFVSS
NGT DC'ed yesterday
J-tube in place
K improved, Mg Phos OK
WBC norm'ed
Hb trending up, d/w HemeOPnc, they prefer 1 u PRBC today to prepare for chemoXRT
Plan:
TF@ goal
Meds via J-tube
Transfuse 1 u PRBC
Analgesics prn
PT/OT
CM/Nutrition following for home care arrangements and home tube feeds upon d/c - Hospital bed, VN for TF, Home PT - plan for DC tomorrow 12/26
D/w Oncology teams plan for initiation of chemoXRT 12/27
c/w heparin sq for vte ppx for now
Subjective Data
-
Date of Service: December 25, 2024
AFVSS, TF @ goal and tolerating, passing, flatus, no n/v
Objective Data
-
Intake and Output
12/24/24 12/25/24 12/26/24
06:59 06:59 06:59
Intake Total 1381 / 1381 3920 / 3920
Output Total 1775 / 1775 1350 / 1350
Balance -394 / -394 2570 / 2570
Intake:
Oral fluids 120 / 120 540 / 540
IV fluids (Total) 960 / 960 960 / 960
Tube feeding 61 / 61 1340 / 1340
Feeding tube flush amount 240 / 240 1080 / 1080
Output:
Gastrointestinal tube output ( 400 / 400
Total)
[place] Sump 400 / 400
Urine, Voided 1375 / 1375 1350 / 1350
Vital Signs
Temp Pulse Resp BP Pulse Ox
98.7 F 83 20 139/70 98
12/25/24 07:54 12/25/24 07:54 12/25/24 07:54 12/25/24 07:54 12/25/24 07:54
Lab Results
12/25/24 06:07
12/25/24 06:07
Calcium 8.3 mg/dl (8.4-10.2) L 12/25/24 06:07
Phosphorus 2.9 mg/dl (2.5-4.5) 12/23/24 08:08
Magnesium 2.2 mg/dl (1.6-2.3) 12/24/24 05:36
Total Bilirubin 0.7 mg/dl (0.2-1.3) 12/20/24 07:43
AST 21 U/L (17-59) 12/20/24 07:43
ALT 13 U/L (0-50) 12/20/24 07:43
Alkaline Phosphatase 56 U/L (38-126) 12/20/24 07:43
Total Protein 6.1 g/dl (6.3-8.2) L 12/20/24 07:43
Albumin 3.5 g/dl (3.5-5.0) 12/20/24 07:43
Physical Exam
-
Gen: NAD
Abd: soft, nt, nd, incisions cdi, j-tube in position
Patient has a hooks catheter: No (condom cath)
Patient has a central line: Yes (port)
[2024-12-25] MEDS: ATACAND 32 MG TUBE (08:50)
[2024-12-25] MEDS: SINEMET 25-100 1.5 TABLET TUBE ×3 (08:50→20:57)
[2024-12-25] MEDS: HEPARIN 5000 UNITS SC ×2 (08:51→20:56)
[2024-12-25] MEDS: ORETIC 12.5 MG TUBE (08:51)
[2024-12-25] MEDS: PROTONIX IV 40 MG IV ×2 (08:53→20:56)
[2024-12-25 09:34] VITALS: BP 136/65
[2024-12-25 09:54] VITALS: BP 136/62
--- NOTE | 2024-12-25 10:47 | VNURNOTE ---
Confirmed with Dr Cornell that he will sign orders for tube feeds. Plan for eventual hand off to PCP. Call out to PCP Dr Tesfaye to update on patient's POC. Jocelyne at [facility] notified. Per Jocelyne, still waiting on insurance approval.
Confirmed with Joellen at [facility]- Hospital bed to be delivered tomorrow. Estimated delivery time between 12-3. [facility] will reach out to spouse to confirm times tomorrow.
Per chart review, plan for DC 12/26. Patient will need early DC by 1100. [facility] tentative delivery by 2pm. [facility] to see same day in afternoon.
[2024-12-25 11:49] VITALS: BP 124/60
[2024-12-25] MEDS: NOVOLOG FLEXPEN-LOW RESISTANCE 1 UNITS SC ×2 (12:05→17:54)
--- NOTE | 2024-12-25 14:28 | CM ---
Plan is to home with tube feeds, patient needs to be home by noon tomorrow, tube feeds will be delivered between 1-2pm tomorrow. Cost of tube feeds copay is $104 per month. Patient has been set up with VN.
Plan: home when stable with Tube feeds from [facility] and [facility].
[2024-12-25 15:33] VITALS: BP 138/68
[2024-12-25 17:47] LABS: Glucose - Point of Care 186 mg/dl (70-99)
[2024-12-25 18:02] LABS: Glucose - Point of Care 151 mg/dl (70-99)
[2024-12-25] MEDS: NSS (PRESERVATIVE FREE) 10 ML IV (20:57)
[2024-12-25 23:24] VITALS: BP 119/58
[2024-12-26 00:39] LABS: Glucose - Point of Care 127 mg/dl (70-99)
[2024-12-26] MEDS: NOVOLOG FLEXPEN-LOW RESISTANCE SC ×3 (00:53→13:12)
[2024-12-26 06:23] LABS: Glucose - Point of Care 129 mg/dl (70-99)
[2024-12-26 07:56] VITALS: BP 123/73
[2024-12-26 09:07] LABS: Hematocrit 25.9 % (39.0-52.0); Hemoglobin 8.6 g/dL (13.0-18.0); Mean Corp Hgb Conc. 33.2 g/dL (33.0-37.0); Mean Corpuscular Hgb 28.2 pg (27.0-31.0); Mean Corpuscular Volume 84.9 fL (80.0-94.0); Mean Platelet Volume 10.7 fL (7.4-10.4); Platelet Count 306 10^3/uL (130-400); Red Blood Cell Count 3.05 10^6/uL (4.70-6.10); Red Cell Dist. Width 13.3 % (11.5-14.5); White Blood Cell Count 11.1 10^3/uL (4.8-10.8)
[2024-12-26 09:31] VITALS: BP 115/74; BP 123/74; PULSE 92; O2SAT 98
--- NOTE | 2024-12-26 09:54 | VNURNOTE ---
Met with spouse again. She stated she will be observing tube feed set up at bedside this AM. She requested additional DME for home: commode, walker, w/c. Updated rx sent to [facility]. Confirmed with Chanelle at [facility] wheelchair and hospital bed will
be delivered to house today by 1pm. [facility] DME to contact spouse regarding delivery.
Commode and rolling walker to be provided by PT.
[facility] to see pt later today for home visit/ teaching.
[2024-12-26] MEDS: SINEMET 25-100 1.5 TABLET TUBE (10:13)
[2024-12-26] MEDS: ATACAND 32 MG TUBE (10:13)
[2024-12-26] MEDS: ORETIC 12.5 MG TUBE (10:14)
[2024-12-26] MEDS: PROTONIX IV 40 MG IV (10:14)
[2024-12-26] MEDS: HEPARIN 5000 UNITS SC (10:19)
--- NOTE | 2024-12-26 10:42 | CM ---
quality improvement manager reviewed patient's chart and met with patient and patient's spouse this am, patient is for discharge to home today with tube feeds from [facility], cost per month is $104, commode and walker from PT, script on chart and w/c and
hospital bed from [facility]. Equipment will be delivery at 11am, tube feeds will be delivered at 2pm and [facility] at 3pm.
Plan; Home today with [facility] for tube feeds and [facility]>
[2024-12-26 11:51] VITALS: BP 100/47; BP 115/51; PULSE 83
[2024-12-26 12:13] LABS: Glucose - Point of Care 183 mg/dl (70-99)
[2024-12-26 13:08] VITALS: BP 100/47; BP 115/51; PULSE 84
[2024-12-26 13:45] VITALS: BP 146/73
--- NOTE | 2024-12-26 15:24 | W.PN.GS2 ---
Today's Communication / Plan
-
DC
Assessment / Plan
-
83M with a h/o esophageal ca POD 7 s/p RAL j-tube placement for nutritional support while undergoing chemo who presented with pSBO now POD #5 dx lap with revision of J-tube
AFVSS
J-tube in place
Hb approp response to 1 uPRBC
Plan:
TF@ goal
Meds via J-tube
Analgesics prn
PT/OT
CM/Nutrition following for home care arrangements and home tube feeds upon d/c - Hospital bed, VN for TF, Home PT
D/w Oncology teams plan for initiation of chemoXRT 12/27
c/w heparin sq for vte ppx for now
DC home
Subjective Data
-
Date of Service: December 26, 2024
AFVSS, TF @ goal, tolerating well
Objective Data
-
Intake and Output
12/25/24 12/26/24 12/27/24
06:59 06:59 06:59
Intake Total 3920 / 3920 2110 / 2110 1380 / 1380
Output Total 1350 / 1350 1150 / 1150
Balance 2570 / 2570 960 / 960 1380 / 1380
Intake:
Oral fluids 540 / 540 480 / 480
IV fluids (Total) 960 / 960
Tube feeding 1340 / 1340 900 / 900 900 / 900
Feeding tube flush amount 1080 / 1080 480 / 480 480 / 480
Blood Product Amount Infused ( 250 / 250
mL)
Packed Rbc Leukoreduced Unit 250 / 250
[id number]
Output:
Urine, Voided 1350 / 1350 1150 / 1150
Vital Signs
Temp Pulse Resp BP Pulse Ox
98 F 85 19 146/73 97
12/26/24 13:45 05/14/25 13:45 12/26/24 13:45 12/26/24 13:45 12/26/24 13:45
Lab Results
12/26/24 08:01
12/25/24 06:07
Calcium 8.3 mg/dl (8.4-10.2) L 12/25/24 06:07
Phosphorus 2.9 mg/dl (2.5-4.5) 12/23/24 08:08
Magnesium 2.2 mg/dl (1.6-2.3) 12/24/24 05:36
Total Bilirubin 0.7 mg/dl (0.2-1.3) 12/20/24 07:43
AST 21 U/L (17-59) 12/20/24 07:43
ALT 13 U/L (0-50) 12/20/24 07:43
Alkaline Phosphatase 56 U/L (38-126) 12/20/24 07:43
Total Protein 6.1 g/dl (6.3-8.2) L 12/20/24 07:43
Albumin 3.5 g/dl (3.5-5.0) 12/20/24 07:43
Physical Exam
-
Gen: NAD
Abd: soft, nd, nt, TF running, J tube in position
Patient has a hooks catheter: No
Patient has a central line: Yes (port)
--- NOTE | 2024-12-28 12:32 | W.DS.TRANS ---
Addendum entered and electronically signed by AMY Au 12/28/24 12:39:
dictated #[id number]
Original Note:
DC Summary - Baseball Sewer Hand
-
Discharge Instructions:
Discharge Diagnosis/Procedures jejunostomy tube
Diet Tube feeding,Grind all food
Additional Diets No straws, Puree any foods you are taking by
mouth. Jevity 1.5 at 75ml/hr for 20hours a day.
60ml flush before and after feedings. 40ml flush
every hour with feedings.
Activity No strenuous activity
Additional Activity Do not lift over 15lbs for 2 weeks
Bathing Restrictions OK to Shower
Other Services VN
Wound Care Apply drain sponge under the bumper of your j-
tube if drainage noted. The glue will flake off
your incisions over the next 2-3 weeks. Avoid
scrubbing or picking off. If you get drainage
around the tube that irritates the skin use the
coloplast dressings and call Dr. Cornell.
Instructions:
Stand-Alone Forms:
Changes to Home Medications: No
Discharge Medications:
DC Medications w/original date entered in [facility]
candesartan 32 mg-hydrochlorothiazide 12.5 mg tablet 1 tab PO DAILY Blood Pressure 11/22/24
carbidopa 25 mg-levodopa 100 mg tablet 1.5 tab PO TID Neurological Condition 11/22/24
cholecalciferol (vitamin D3) 25 mcg (1,000 unit) capsule (Vitamin D3) 25 mcg PO DAILY Supplement 11/22/24
multivitamin with minerals-folic acid 80 mcg chewable tablet (Centrum Adult 50 Plus) 1 tab PO DAILY Supplement 11/22/24
Cashew,Rutin,Hesperidin 1 dose PO DAILY Supplement 12/14/24
ipratropium bromide 21 mcg (0.03 %) nasal spray 2 spray intranasal HS Congestion 12/14/24
thiamine HCl (vitamin B1) 100 mg tablet 100 mg PO DAILY Supplement 12/14/24
turmeric root extract 500 mg tablet 2,250 mg PO DAILY Supplement 12/14/24
Carmencita 2 cap PO DAILY Supplement 12/20/24
Home Medication Changes
Pending Results: No
--- NOTE | 2024-12-31 08:49 | OR.RPT ---
Addendum entered and electronically signed by Dillon Cornell MD 12/31/24 09:02:
The assistance of Harmony LERNER was required due to the complexity of the procedure. During the procedure she assisted with retraction, resection, and closure of the wound.
Original Note:
Operative Report
Operative Report
Primary Surgeon: Kraig
Assisting: Harmony LERNER
Pre-op Diagnosis: Jejunostomy tube malfunction
Post-op Diagnosis: Small bowel obstruction
Procedure Performed: Diagnostic laparoscopy, revision of jejunostomy tube
Anesthesia Type: GETA
Specimen / Cultures: None
Estimated Blood Loss: 3cc
Complications: None immediate
Operative Findings: Small bowel appeared kinked at the point of fixation to the abdominal wall. The small bowel was taken down from the wall and repositioned to relieve the angulation. The small bowel was reapproximated to the abdominal wall with
2-0 silk suture. The belly was desufflated under vision and the bowel was monitored to ensure no sharp angulation occurred.
Date of Surgery: 12/21/24
Indications: This 84M underwent robot assisted laparoscopic jejunostomy tube placement and subsequently developed a small bowel obstruction. Diagnostic laparoscopy and jejunostomy tube revision was planned.
Description of procedure: The patient was placed on the operating table in the supine position. General anesthesia was induced. A time-out was completed verifying correct patient, procedure, site, positioning, and special equipment prior to
beginning this procedure. An nasogastric tube was in place. The abdomen was prepped and draped in the usual sterile fashion. A stab incision was made in left upper quadrant and the Veress needle was inserted. Proper position was confirmed by
aspiration and saline meniscus test. The abdomen was insufflated with carbon dioxide to a pressure of 12 mmHg. The patient tolerated insufflation well.
The prior trocar incisions were reopened and trocars were placed in the same locations, the second two under direct vision. No injuries from veress needle or trocar placement were noted. The area of jejunum fixed to the abdominal wall was notably
kinked. This was taken down off the abdominal wall carefully with cold capo. The witzel suture was divided and about 3 cm of the witxel was undone, leaving about 7cm intact. The bowel was repositioned to a point more lateral on the abdominal wall
to correct the angulation. The jejunum was fixed to the abdominal wall at this location with 2-0 silk suture. Several more silk sutures were placed distal to this to secure the jejunum to the abdominal wall and ensure no further kinks. The abdomen
was allowed to collapse slowly under vision wall observing the bowel to ensure no kinks formed. The laparoscopie was withdrawn and the trocars were removed under direct vision and noted to be hemostatic. The skin was closed with subcuticular sutures
of 4-0 monocryl and topical skin adhesive.
The patient tolerated the procedure well and was taken to the postanesthesia care unit in stable condition.
== END 2024-12-26 14:47 | disposition home health service (06) | DRG 345 ==
LOC: 1 ACUTE 07:41
PROVIDERS: Registered Nurse; Surgery; ADMITTING PHYSICIAN Surgery; EMERGENCY PHYSICIAN Emergency Medicine; FAMILY PHYSICIAN Internal Medicine
PROC: 0DWD4UZ Revision of Feeding Device in Lower Intestinal Tract, Percutaneous Endoscopic Approach (ICD-10-PCS; 2024-12-21)
PROC: 30243N1 Transfusion of Nonautologous Red Blood Cells into Central Vein, Percutaneous Approach (ICD-10-PCS; 2024-12-25)
DX: K94.13 Enterostomy malfunction (principal); C15.9 Malignant neoplasm of esophagus, unspecified; D62 Acute posthemorrhagic anemia; E87.1 Hypo-osmolality and hyponatremia; N17.9 Acute kidney failure, unspecified; K56.600 Partial intestinal obstruction, unspecified as to cause; D72.829 Elevated white blood cell count, unspecified; E86.0 Dehydration; E86.1 Hypovolemia; G20.A1 Parkinson's disease without dyskinesia, without mention of fluctuations; I10 Essential (primary) hypertension; Z80.52 Family history of malignant neoplasm of bladder; Z82.0 Family history of epilepsy and other diseases of the nervous system; Z90.49 Acquired absence of other specified parts of digestive tract
CPT/HCPCS: 49465; 74250; 80048; 80053; 82962; 83690; 83735; 84100; 85014; 85018; 85025; 85027; 85610; 85730; 86850; 86900; 86901; 86920; 92526; 92610; 93005; 96374; 96376; 97110; 97116; 97163; 97167; 97530; 97535; 99285; P9016

== ENCOUNTER → 2025-01-01 09:18 | Outpatient (REF) | payer MEDICARE, OTHER, SELFPAY ==
[2025-01-01 10:17] LABS: % Basophils 0.4 % (0-2); % Eosinophils 3.4 % (0-6); % Immature Granulocytes 0.6 % (0-0.5); % Lymphocytes 6.9 % (20.5-51.1); % Monocytes 3.2 % (1.7-9.3); % Neutrophils 85.5 % (42.2-75.2); Absolute Eosinophils 0.3 10^3/uL (0-0.7); Absolute Immature Granulocytes 0.1 10^3/uL (0-0.05); Absolute Lymphocytes 0.6 10^3/uL (1.2-3.4); Absolute Monocytes 0.3 10^3/uL (0.1-0.6); Absolute Neutrophils 7.9 10^3/uL (1.4-6.5); Hemoglobin 8.1 g/dL (13.0-18.0); Mean Corp Hgb Conc. 32.4 g/dL (33.0-37.0); Mean Corpuscular Volume 86.5 fL (80.0-94.0); Mean Platelet Volume 10.7 fL (7.4-10.4); Nucleated Red Blood Cells % 0 % (-); Platelet Count 342 10^3/uL (130-400); Red Blood Cell Count 2.89 10^6/uL (4.70-6.10); Red Cell Dist. Width 13.9 % (11.5-14.5); White Blood Cell Count 9.3 10^3/uL (4.8-10.8)
[2025-01-01 10:58] LABS: ALT (SGPT) 19 U/L (0-50); AST (SGOT) 20 U/L (17-59); Albumin 3.4 g/dl (3.5-5.0); Alkaline Phosphatase 60 U/L (38-126); Blood Urea Nitrogen 33 mg/dl (9-20); Calcium 9.1 mg/dl (8.4-10.2); Carbon Dioxide 30 mmol/L (22-30); Chloride 100 mmol/L (98-107); Direct Bilirubin 0.1 mg/dl (0.0-0.4); Glucose 107 mg/dl (70-99); Potassium 4.8 mmol/L (3.5-5.1); Sodium 135 mmol/L (135-145); Total Bilirubin 0.5 mg/dl (0.2-1.3); Total Protein 5.8 g/dl (6.3-8.2); eGFR > 60.00
== END ==
LOC: REG 09:18
PROVIDERS: ATTENDING PHYSICIAN Internal Medicine Hematology & Oncology
DX: C15.8 Malignant neoplasm of overlapping sites of esophagus (principal)
CPT/HCPCS: 36415; 80053; 82248; 85025

== ENCOUNTER → 2025-01-03 10:51 | Outpatient (REF) | payer MEDICARE, OTHER, SELFPAY ==
[2025-01-03 12:23] LABS: Reticulocyte Count 1.5 % (0.4-2.8)
[2025-01-03 12:47] LABS: Iron 49 ug/dl (49-181)
[2025-01-03 12:57] LABS: Percent Saturation 12 % (20-50); Total Iron Binding Capacity 407 ug/dl (261-462)
[2025-01-03 13:19] LABS: Ferritin 35.3 ng/ml (17.9-464.0)
[2025-01-03 13:50] LABS: Erythrocyte Sed Rate 80 mm/hour (0-20)
[2025-01-03 13:51] LABS: Folate 14.2 ng/ml (2.76-20); Vitamin B12 917 pg/ml (239-931)
== END ==
LOC: OIDL 10:51
PROVIDERS: ATTENDING PHYSICIAN Internal Medicine Hematology & Oncology
DX: C15.8 Malignant neoplasm of overlapping sites of esophagus (principal); D51.9 Vitamin B12 deficiency anemia, unspecified
CPT/HCPCS: 82607; 82728; 82746; 83540; 83550; 85045; 85652

== ENCOUNTER → 2025-01-08 09:28 | Outpatient (REF) | payer MEDICARE, OTHER, SELFPAY ==
[2025-01-08 10:22] LABS: % Basophils 0.6 % (0-2); % Eosinophils 3.6 % (0-6); % Immature Granulocytes 0.6 % (0-0.5); % Lymphocytes 7.3 % (20.5-51.1); % Monocytes 4.8 % (1.7-9.3); % Neutrophils 83.1 % (42.2-75.2); Absolute Eosinophils 0.2 10^3/uL (0-0.7); Absolute Lymphocytes 0.4 10^3/uL (1.2-3.4); Absolute Monocytes 0.2 10^3/uL (0.1-0.6); Absolute Neutrophils 4.1 10^3/uL (1.4-6.5); Hematocrit 23.4 % (39.0-52.0); Hemoglobin 7.8 g/dL (13.0-18.0); Mean Corp Hgb Conc. 33.3 g/dL (33.0-37.0); Mean Corpuscular Hgb 29.2 pg (27.0-31.0); Mean Corpuscular Volume 87.6 fL (80.0-94.0); Mean Platelet Volume 10.3 fL (7.4-10.4); Nucleated Red Blood Cells % 0 % (-); Platelet Count 289 10^3/uL (130-400); Red Blood Cell Count 2.67 10^6/uL (4.70-6.10); Red Cell Dist. Width 14.8 % (11.5-14.5)
[2025-01-08 11:15] LABS: ALT (SGPT) 15 U/L (0-50); AST (SGOT) 15 U/L (17-59); Albumin 3.5 g/dl (3.5-5.0); Alkaline Phosphatase 56 U/L (38-126); Blood Urea Nitrogen 32 mg/dl (9-20); Calcium 9.1 mg/dl (8.4-10.2); Carbon Dioxide 29 mmol/L (22-30); Chloride 100 mmol/L (98-107); Glucose 100 mg/dl (70-99); Potassium 4.5 mmol/L (3.5-5.1); Sodium 135 mmol/L (135-145); Total Bilirubin 0.4 mg/dl (0.2-1.3); Total Protein 5.9 g/dl (6.3-8.2); eGFR > 60.00
== END ==
LOC: REG 09:28
PROVIDERS: ATTENDING PHYSICIAN Internal Medicine Hematology & Oncology
DX: C15.8 Malignant neoplasm of overlapping sites of esophagus (principal)
CPT/HCPCS: 36415; 80053; 85025

== ENCOUNTER → 2025-01-15 08:44 | Outpatient (REF) | payer MEDICARE, OTHER, SELFPAY ==
[2025-01-15 09:48] LABS: % Basophils 0.6 % (0-2); % Eosinophils 3.6 % (0-6); % Immature Granulocytes 1.5 % (0-0.5); % Lymphocytes 6.3 % (20.5-51.1); % Monocytes 10.7 % (1.7-9.3); % Neutrophils 77.3 % (42.2-75.2); Absolute Eosinophils 0.1 10^3/uL (0-0.7); Absolute Immature Granulocytes 0.1 10^3/uL (0-0.05); Absolute Lymphocytes 0.2 10^3/uL (1.2-3.4); Absolute Monocytes 0.4 10^3/uL (0.1-0.6); Absolute Neutrophils 2.6 10^3/uL (1.4-6.5); Hematocrit 23.4 % (39.0-52.0); Hemoglobin 7.7 g/dL (13.0-18.0); Mean Corp Hgb Conc. 32.9 g/dL (33.0-37.0); Mean Corpuscular Hgb 29.5 pg (27.0-31.0); Mean Corpuscular Volume 89.7 fL (80.0-94.0); Mean Platelet Volume 10.1 fL (7.4-10.4); Nucleated Red Blood Cells % 0.6 % (-); Platelet Count 226 10^3/uL (130-400); Red Blood Cell Count 2.61 10^6/uL (4.70-6.10); Red Cell Dist. Width 16.3 % (11.5-14.5); White Blood Cell Count 3.4 10^3/uL (4.8-10.8)
[2025-01-15 10:29] LABS: ALT (SGPT) < 10 U/L (0-50); AST (SGOT) 17 U/L (17-59); Albumin 3.4 g/dl (3.5-5.0); Alkaline Phosphatase 64 U/L (38-126); Blood Urea Nitrogen 31 mg/dl (9-20); Calcium 8.6 mg/dl (8.4-10.2); Carbon Dioxide 27 mmol/L (22-30); Chloride 99 mmol/L (98-107); Glucose 99 mg/dl (70-99); Potassium 4.5 mmol/L (3.5-5.1); Sodium 131 mmol/L (135-145); Total Bilirubin 0.5 mg/dl (0.2-1.3); Total Protein 5.7 g/dl (6.3-8.2); eGFR > 60.00
== END ==
LOC: REG 08:44
PROVIDERS: ATTENDING PHYSICIAN Internal Medicine Hematology & Oncology; FAMILY PHYSICIAN Internal Medicine
DX: C15.8 Malignant neoplasm of overlapping sites of esophagus (principal)
CPT/HCPCS: 36415; 80053; 85025

== ENCOUNTER → 2025-01-17 11:29 | Outpatient (REF) | payer MEDICARE, OTHER, SELFPAY ==
[2025-01-17 11:54] LABS: TSH 0.73 uIU/ml (0.47-4.68)
== END ==
LOC: OIDL 11:29
PROVIDERS: ATTENDING PHYSICIAN Internal Medicine Hematology & Oncology
DX: C15.8 Malignant neoplasm of overlapping sites of esophagus (principal); D53.9 Nutritional anemia, unspecified
CPT/HCPCS: 84443

== ENCOUNTER → 2025-01-22 09:05 | Outpatient (REF) | payer MEDICARE, OTHER, SELFPAY ==
[2025-01-22 09:42] LABS: % Basophils 0.5 % (0-2); % Eosinophils 0.9 % (0-6); % Immature Granulocytes 1.1 % (0-0.5); % Lymphocytes 4.6 % (20.5-51.1); % Monocytes 7.8 % (1.7-9.3); % Neutrophils 85.1 % (42.2-75.2); Absolute Immature Granulocytes 0.1 10^3/uL (0-0.05); Absolute Lymphocytes 0.2 10^3/uL (1.2-3.4); Absolute Monocytes 0.3 10^3/uL (0.1-0.6); Absolute Neutrophils 3.7 10^3/uL (1.4-6.5); Hematocrit 23.8 % (39.0-52.0); Hemoglobin 7.8 g/dL (13.0-18.0); Mean Corp Hgb Conc. 32.8 g/dL (33.0-37.0); Mean Corpuscular Hgb 29.9 pg (27.0-31.0); Mean Corpuscular Volume 91.2 fL (80.0-94.0); Mean Platelet Volume 10.1 fL (7.4-10.4); Nucleated Red Blood Cells % 0 % (-); Platelet Count 192 10^3/uL (130-400); Red Blood Cell Count 2.61 10^6/uL (4.70-6.10); Red Cell Dist. Width 18.6 % (11.5-14.5); White Blood Cell Count 4.4 10^3/uL (4.8-10.8)
[2025-01-22 10:32] LABS: ALT (SGPT) < 10 U/L (0-50); AST (SGOT) 17 U/L (17-59); Albumin 3.4 g/dl (3.5-5.0); Alkaline Phosphatase 58 U/L (38-126); Blood Urea Nitrogen 33 mg/dl (9-20); Carbon Dioxide 28 mmol/L (22-30); Chloride 101 mmol/L (98-107); Glucose 101 mg/dl (70-99); Potassium 4.7 mmol/L (3.5-5.1); Sodium 134 mmol/L (135-145); Total Bilirubin 0.4 mg/dl (0.2-1.3); Total Protein 5.7 g/dl (6.3-8.2); eGFR > 60.00
== END ==
LOC: REG 09:05
PROVIDERS: ATTENDING PHYSICIAN Internal Medicine Hematology & Oncology; FAMILY PHYSICIAN Internal Medicine
DX: C15.8 Malignant neoplasm of overlapping sites of esophagus (principal)
CPT/HCPCS: 36415; 80053; 85025

== ENCOUNTER → 2025-01-29 09:09 | Outpatient (REF) | payer MEDICARE, OTHER, SELFPAY ==
[2025-01-29 10:15] LABS: ALT (SGPT) 14 U/L (0-50); AST (SGOT) 18 U/L (17-59); Albumin 3.3 g/dl (3.5-5.0); Alkaline Phosphatase 65 U/L (38-126); Blood Urea Nitrogen 32 mg/dl (9-20); Calcium 8.8 mg/dl (8.4-10.2); Carbon Dioxide 29 mmol/L (22-30); Chloride 98 mmol/L (98-107); Glucose 108 mg/dl (70-99); Potassium 4.5 mmol/L (3.5-5.1); Sodium 130 mmol/L (135-145); Total Bilirubin 0.4 mg/dl (0.2-1.3); Total Protein 5.8 g/dl (6.3-8.2); eGFR > 60.00
[2025-01-29 10:30] LABS: Hematocrit 23.9 % (39.0-52.0); Mean Corp Hgb Conc. 33.5 g/dL (33.0-37.0); Mean Corpuscular Hgb 30.5 pg (27.0-31.0); Mean Corpuscular Volume 91.2 fL (80.0-94.0); Mean Platelet Volume 10.2 fL (7.4-10.4); Platelet Count 206 10^3/uL (130-400); Red Blood Cell Count 2.62 10^6/uL (4.70-6.10); White Blood Cell Count 1.6 10^3/uL (4.8-10.8)
[2025-01-29 12:11] LABS: % Basophils 0.6 % (0-2); % Eosinophils 0.6 % (0-6); % Immature Granulocytes 0.6 % (0-0.5); % Lymphocytes 5.8 % (20.5-51.1); % Monocytes 14.7 % (1.7-9.3); % Neutrophils 77.7 % (42.2-75.2); Absolute Lymphocytes 0.1 10^3/uL (1.2-3.4); Absolute Monocytes 0.2 10^3/uL (0.1-0.6); Absolute Neutrophils 1.2 10^3/uL (1.4-6.5); Nucleated Red Blood Cells % 0 % (-)
== END ==
LOC: REG 09:09
PROVIDERS: ATTENDING PHYSICIAN Internal Medicine Hematology & Oncology; FAMILY PHYSICIAN Internal Medicine
DX: C15.8 Malignant neoplasm of overlapping sites of esophagus (principal)
CPT/HCPCS: 36415; 80053; 85025

== ENCOUNTER → 2025-02-04 08:40 | Outpatient (REF) | payer MEDICARE, OTHER, SELFPAY ==
[2025-02-04 09:25] LABS: % Basophils 0.7 % (0-2); % Eosinophils 1.4 % (0-6); % Immature Granulocytes 1.7 % (0-0.5); % Lymphocytes 4.1 % (20.5-51.1); % Monocytes 14.5 % (1.7-9.3); % Neutrophils 77.6 % (42.2-75.2); Absolute Immature Granulocytes 0.1 10^3/uL (0-0.05); Absolute Lymphocytes 0.1 10^3/uL (1.2-3.4); Absolute Monocytes 0.4 10^3/uL (0.1-0.6); Absolute Neutrophils 2.3 10^3/uL (1.4-6.5); Hematocrit 23.2 % (39.0-52.0); Hemoglobin 7.7 g/dL (13.0-18.0); Mean Corp Hgb Conc. 33.2 g/dL (33.0-37.0); Mean Corpuscular Hgb 30.7 pg (27.0-31.0); Mean Corpuscular Volume 92.4 fL (80.0-94.0); Mean Platelet Volume 10.3 fL (7.4-10.4); Nucleated Red Blood Cells % 0 % (-); Platelet Count 242 10^3/uL (130-400); Red Blood Cell Count 2.51 10^6/uL (4.70-6.10); Red Cell Dist. Width 20.8 % (11.5-14.5); White Blood Cell Count 2.9 10^3/uL (4.8-10.8)
[2025-02-04 10:42] LABS: ALT (SGPT) < 10 U/L (0-50); AST (SGOT) 18 U/L (17-59); Albumin 3.2 g/dl (3.5-5.0); Alkaline Phosphatase 67 U/L (38-126); Blood Urea Nitrogen 30 mg/dl (9-20); Calcium 8.6 mg/dl (8.4-10.2); Carbon Dioxide 27 mmol/L (22-30); Chloride 98 mmol/L (98-107); Glucose 95 mg/dl (70-99); Potassium 4.6 mmol/L (3.5-5.1); Sodium 129 mmol/L (135-145); Total Bilirubin 0.4 mg/dl (0.2-1.3); Total Protein 5.6 g/dl (6.3-8.2); eGFR > 60.00
== END ==
LOC: REG 08:40
PROVIDERS: ATTENDING PHYSICIAN Internal Medicine Hematology & Oncology; FAMILY PHYSICIAN Internal Medicine
DX: C15.8 Malignant neoplasm of overlapping sites of esophagus (principal)
CPT/HCPCS: 36415; 80053; 85025

== ENCOUNTER → 2025-02-11 09:11 | Outpatient (REF) | payer MEDICARE, OTHER, SELFPAY ==
[2025-02-11 11:21] LABS: Hematocrit 25.8 % (39.0-52.0); Hemoglobin 8.4 g/dL (13.0-18.0); Mean Corp Hgb Conc. 32.6 g/dL (33.0-37.0); Mean Corpuscular Volume 95.2 fL (80.0-94.0); Mean Platelet Volume 10.1 fL (7.4-10.4); Platelet Count 295 10^3/uL (130-400); Red Blood Cell Count 2.71 10^6/uL (4.70-6.10); Red Cell Dist. Width 22.1 % (11.5-14.5); White Blood Cell Count 6.7 10^3/uL (4.8-10.8)
[2025-02-11 11:36] LABS: Absolute Neutrophils -Man Diff 5.2 10^3/uL (1.4-6.5); Band Neutrophils 3 % (0-3); Eosinophils 1 % (0-6); Lymphocytes 3 % (20-51); Monocytes 14 % (2-9); Segmented Neutrophils 76 % (42-75)
[2025-02-11 11:37] LABS: Metamyelocytes 2 % (-); Myelocytes 1 % (-); Normal RBC Morphology No; Nucleated Red Blood Cells 1 (-); Platelets Checked Yes
[2025-02-11 11:38] LABS: Anisocytosis 2+; Hypochromasia 1+; Polychromasia 1+; Total Cells Counted 100
[2025-02-11 14:41] LABS: ALT (SGPT) < 10 U/L (0-50); AST (SGOT) 22 U/L (17-59); Albumin 3.5 g/dl (3.5-5.0); Alkaline Phosphatase 81 U/L (38-126); Blood Urea Nitrogen 29 mg/dl (9-20); Calcium 9.2 mg/dl (8.4-10.2); Carbon Dioxide 29 mmol/L (22-30); Chloride 97 mmol/L (98-107); Glucose 88 mg/dl (70-99); Iron 67 ug/dl (49-181); Potassium 4.8 mmol/L (3.5-5.1); Sodium 131 mmol/L (135-145); Total Bilirubin 0.3 mg/dl (0.2-1.3); Total Protein 6.1 g/dl (6.3-8.2); eGFR > 60.00
[2025-02-11 14:50] LABS: Percent Saturation 19 % (20-50); Total Iron Binding Capacity 348 ug/dl (261-462)
== END ==
LOC: REG 09:11
PROVIDERS: ATTENDING PHYSICIAN Internal Medicine Hematology & Oncology; FAMILY PHYSICIAN Internal Medicine
DX: C15.8 Malignant neoplasm of overlapping sites of esophagus (principal); D53.9 Nutritional anemia, unspecified
CPT/HCPCS: 36415; 80053; 82728; 83540; 83550; 85025

== ENCOUNTER 2025-02-19 22:20 | Inpatient (IN) | payer MEDICARE, OTHER, SELFPAY ==
[2025-02-19] VITALS (9 sets, daily range): BP systolic 96–128; BP diastolic 48–66; BMI 22.9; BMI 23.6
[2025-02-19 13:35] LABS: Hematocrit 29.3 % (39.0-52.0); Hemoglobin 9.6 g/dL (13.0-18.0); Mean Corp Hgb Conc. 32.8 g/dL (33.0-37.0); Mean Corpuscular Volume 95.8 fL (80.0-94.0); Nucleated Red Blood Cells % 0 % (-); Platelet Count 205 10^3/uL (130-400); Red Cell Dist. Width 21.7 % (11.5-14.5)
--- NOTE | 2025-02-19 15:45 | ED.GENMED ---
History of Present Illness
General
Chief Complaint: Chest Pain
Source: patient and spouse
Exam Limitations: none
Time Seen by Provider: 02/19/25 15:44
History of Present Illness
History of Present Illness:
84-year-old male sudden onset of bilateral chest pain shortness of breath after having a tube feed this morning. Tube feed was his same typical feed but was changed from a drip to a bolus feed. Within half an hour of the second bolus he developed
the symptoms. Lasted for hours. Currently improved. Currently denying chest pain or shortness of breath. Also denying abdominal pain fever or chills.
Past History
Past History
ED Past Medical History: Cancer (Esophageal), GERD and HTN
ED Past Surgical History: Appendectomy, Tonsilectomy and Other (J-tube. Mohs surgery. Subcutaneous port)
Review of Systems
Review of Systems
All Other Systems: Not applicable
Constitutional: Denies fever or chills
ABD/GI: Denies abdominal pain
Phy Exam
Physical Exam
Physical Exam:
GENERAL: Alert and oriented in no apparent distress
EYE: Orbits normal.
NECK: Supple
ENT: Pharynx without erythema. No drooling or stridor
CARDIAC: Regular rate and rhythm without any obvious murmurs.
LUNGS: Clear breath sounds,normal
ABDOMEN: Minimally distended but soft. Bowel sounds present. J-tube in place. No bleeding or drainage. No rebound or guarding no mass or hernia
NEUROLOGICAL: Alert and oriented , grossly non-focal
SKIN: Warm and dry, no rash or lesion, no discoloration, skin intact.
MUSCULOSKELETAL: No edema,no deformity.Good color
PSYCH: Normal and appropriate interaction.
Scores
Heart Score for Chest Pain Patients
STEMI patient?: No
History: Slightly or Non-Suspicious
ECG: Nonspecific Repolarization
Age: >/= 65 years
Risk Factors: 1 or 2 Risk Factors
Troponin: </= Normal Limit
Heart Score for Chest Pain Patients: 4
Heart Score Risk: 20.3% MACE over next 6 weeks
Course
Orders/Labs/Results
Orders:
Orders
02/19/25 13:13
Electrocardiogram (*1) Urgent
Reason for Study: Other
Other Reason for Exam: Respiratory Distress
Cardiac Monitoring- Treatment ONCE
EKG- Treatment ONCE
IV Insert/Care/Rem.- Treatment PRN
O2 Therapy [RESP] Urgent
Titrate/Wean O2 to maintain O2 sat greater than (%): 93
Special Instructions: TO MAINTAIN CONTINUOUS O2 SATS >/= 93%
Pulse Ox/cont/shift [RESP] Urgent
Quantity: 1
Special Instructions: continuous pulse ox
02/19/25 13:28
Complete Blood Count/With Diff Urgent
02/19/25 15:56
CT Pe/abd/pel W Urgent
Reason For Exam: Sudden chest pain/short of breath. History of eso
02/19/25 15:57
0.9% Sodium Chloride 500 ml [Nss] 500 ml IV BOLUS
02/19/25 16:06
Comprehensive Metabolic Panel Urgent
Lipase Urgent
NT-proBNP Urgent
Troponin I Urgent
02/19/25 17:45
Urinalysis Reflex To Culture Urgent
Date Specimen was Collected: 02/19/25
Time Specimen was Collected: 17:43
Urine Microscopic Reflex Cult Urgent
02/19/25 20:24
Electrocardiogram (*1) Stat
Reason for Study: Other
Other Reason for Exam: chest pain
EKG- Treatment ONCE
02/19/25 20:35
Troponin I Urgent
02/19/25 21:17
CefTRIAXone [Rocephin] 1,000 mg IV NOW STA
Doxycycline [Vibramycin] 100 mg PO NOW STA
02/19/25 21:30
Blood Culture Q30M
[facility] Source: Blood/Venous
Specimen Description:
02/19/25 21:36
Lactic Acid Stat
02/19/25 21:45
0.9% Sodium Chloride 1000 ml [Nss] 1,000 ml IV 125 mls/hr
02/19/25 22:00
Blood Culture Q30M
[facility] Source: Blood/Venous
Specimen Description:
Abnormal Lab Results
02/19/25 02/19/25 02/19/25
13:28 16:06 17:45
WBC 17.0 H 10^3/uL
(4.8-10.8)
RBC 3.06 L 10^6/uL
(4.70-6.10)
Hgb 9.6 L g/dL
(13.0-18.0)
Hct 29.3 L %
(39.0-52.0)
MCV 95.8 H fL
(80.0-94.0)
MCH 31.4 H pg
(27.0-31.0)
MCHC 32.8 L g/dL
(33.0-37.0)
RDW 21.7 H %
(11.5-14.5)
Abs Immat Gran (auto) 0.1 H 10^3/uL
(0-0.05)
Absolute Neuts (auto) 13.9 H 10^3/uL
(1.4-6.5)
Absolute Lymphs (auto) 0.2 L 10^3/uL
(1.2-3.4)
Absolute Monos (auto) 2.7 H 10^3/uL
(0.1-0.6)
Immature Gran % 0.6 H %
(0-0.5)
Neutrophils % 81.9 H %
(42.2-75.2)
Lymphocytes % 1.4 L %
(20.5-51.1)
Monocytes % 15.9 H %
(1.7-9.3)
Sodium 128 L mmol/L
(135-145)
BUN 33 H mg/dl
(9-20)
Glucose 112 H mg/dl
(70-99)
Total Protein 6.2 L g/dl
(6.3-8.2)
Urine Bacteria (Reflex) Few A
(Negative)
Urine Albumin (Reflex) 1+ A
(Neg - Trace)
02/19/25 13:28
02/19/25 16:06
Vital Signs
Initial and Last Documented VS:
Initial Vital Signs
Temp Pulse Resp BP Pulse Ox
99.5 F 106 18 116/66 99
02/19/25 13:10 02/19/25 13:10 02/19/25 13:10 02/19/25 13:10 02/19/25 13:10
Last Documented Vital Signs
Temp Pulse Resp BP Pulse Ox
99.5 F 97 28 107/51 96
02/19/25 13:10 02/19/25 18:00 02/19/25 18:00 02/19/25 18:00 02/19/25 18:00
MDM/Problems Addressed
Differential Diagnosis Includes:
Chest pain short of breath. Doubt cardiac but check troponin EKG and repeat in 3 hours. Also would consider PE. CT scans pending. Sudden onset with bolus feeding. Abdomen is mildly distended but soft. Symptoms have essentially resolved.
Unlikely to be bowel perforation but while CT in the chest will also check abdomen and pelvis. Leukocytosis likely reactive. I will also check urine
*Radiology
Radiology exam reviewed: radiology read reviewed (No pulmonary emboli. Bilateral pneumonitis. J-tube in place. Mild inflammation around the J-tube)
*Pulse Oximetry
SaO2: 99
Oxygen Mode of Delivery: Room air
Patient hypoxic: no
*EKG
Interpreted by ED Provider?: Yes
Interpretation: abnormal
Comparison EKG: changes noted
Heart Rate: 99
Rate: normal
Rhythm: sinus and PVC's
Glen: normal axis
Interval: normal interval
QRS Pattern: normal QRS and left vent hypertrophy
Ischemia: non-specific ST changes
*Critical Care Note
Total Time (30-74mins, 75-104mins- exclusive of procedures): Not Applicable
Data Reviewed
Review of Other/Old Records Reveals: Labs, Records, Radiology Studies, Operative Reports and Testing
Update Note
Update Note:
Repeat EKG unchanged. Troponin negative. Highly doubt primary cardiac issue. Pneumonitis by CT. Aspiration versus atelectasis/pneumonia versus radiation. With elevated white count ongoing recurring chest pain and pneumonitis. She warrants
inpatient management
ED Attending Note
-
Portions of this chart may have been created with voice recognition software.� Occasional wrong word or��sound alike� substitutions may have occurred due to the inherent limitations of voice recognition software.
Discharge Plan
Departure
Patient Disposition: Admit
Date of Disposition: 02/19/25
Time of Disposition: 21:19
Presentation/result/management discussed w/ accepting MD/DO: Hospitalist
Discharge Problem:
Recurring chest pain/pneumonitis, History of esophageal CA
Prescriptions:
No Action
candesartan-hydrochlorothiazid 32-12.5 mg tablet
1 tab PO DAILY
ondansetron HCl 4 mg tablet
4 mg PO Q8HPRN PRN (Reason: nausea/vomiting)
bisacodyl [Dulcolax (bisacodyl)] 5 mg Tablet,Delayed Release (Dr/Ec)
5 mg PO HS
Patient Comments:
02/19/2025, chewable tablet.
bisacodyl [Dulcolax (bisacodyl)] 5 mg Tablet,Delayed Release (Dr/Ec)
5 mg PO HSPRN PRN (Reason: constipation)
Patient Comments:
02/19/2025, chewable tablet.
carbidopa-levodopa 25-100 mg tablet
1.5 tab PO TID
Referrals:
Francisco Tesfaye MD [Family Provider, Internal Medicine]
Interventions
Interventions:
*Risk Screen - Suicide Last Done: 02/19/25 13:10
*General Assessment Last Done: 02/19/25 16:10
*Neglect/Abuse Screening Last Done: 02/19/25 13:10
*ED- Fall Risk Assessment Last Done: 02/19/25 16:10
*ED COVID-19 Vaccine History Last Done: 02/19/25 16:10
ED- Cardiac Assessment Last Done: 02/19/25 16:10
Discharge Date and Time
Print Language: LITHUANIAN
--- NOTE | 2025-02-19 15:48 | EDRN ---
Dr. Lin in room w/pt at this time.
[2025-02-19 16:24] LABS: Lipase 158 U/L (23-300)
[2025-02-19 16:32] LABS: ALT (SGPT) < 10 U/L (0-50); AST (SGOT) 24 U/L (17-59); Albumin 3.6 g/dl (3.5-5.0); Alkaline Phosphatase 67 U/L (38-126); Blood Urea Nitrogen 33 mg/dl (9-20); Calcium 9.2 mg/dl (8.4-10.2); Carbon Dioxide 25 mmol/L (22-30); Chloride 98 mmol/L (98-107); Estimated Creatinine Clearance 57 ml/min; Glucose 112 mg/dl (70-99); Potassium 4.5 mmol/L (3.5-5.1); Sodium 128 mmol/L (135-145); Total Protein 6.2 g/dl (6.3-8.2); eGFR > 60.00
[2025-02-19 16:36] LABS: Troponin I 0.013 ng/ml
[2025-02-19] MEDS: NSS 500 IV (17:40)
--- NOTE | 2025-02-19 17:43 | EDRN ---
Pt OOB to BR and provided urine spec at this time.
[2025-02-19 17:56] LABS: Urine Character Clear (Clear)
[2025-02-19 18:04] LABS: Urine Red Blood Cell 0-2 /HPF (0-2); Urine Squamous Cell 0-2 /LPF (Few)
[2025-02-19 21:07] LABS: Troponin I < 0.012 ng/ml
--- NOTE | 2025-02-19 21:20 | HPS.HSE ---
Family Physician
-
Family Physician: Francisco Tesfaye
Chief Complaint
-
chest pain/shortness of breath
History of Present Illness
Patient is a 84-year-old male with past medical history significant for hypertension, Parkinson's Disease, hyponatremia and stage III adenocarcinoma of esophagus who presented to [facility] ED for evaluation of chest pain and shortness of breath. Patient
reports that he had a J-tube placed December 19 with revision December 21 and had been receiving continuous tube feedings until today when it was changed to bolus feeding. administered second tube feeding without inciddent and within a half hour
patient became symptomatic. Denies any fever, chills, nausea or vomiting.
Medical History
Past Medical History
Past Medical History: Reports Other
Additional Past Medical History:
hypertension
Parkinson's Disease
hyponatremia
chronic cough
stage III adenocarcinoma of esophagus
prostate cancer
melanoma on back
Past Surgical History: Reports Other
Additional Past Surgical History:
appendectomy
BL IHR
Cancerous skin lesion removal
cataracts
RAL J-Tube placement 12/19/2024
Social History
Tobacco: Non-smoker
Alcohol: Occasional
Drug: None
Personal:
Living: With Family
Family History
Family History: Cancer (brother with bladder ca) and Other (Father with parkinsons)
Allergies / Home Medications
Allergies reflects when Allergies were last updated in [employer].
Home Medications with original date entered in [employer]
Allergy/Medication List:
Allergies
Allergy/AdvReac Type Severity Reaction Status Date / Time
No Known Allergies Allergy Verified 02/19/25 13:09
Home Medications
bisacodyl 5 mg tablet,delayed release (Dulcolax (bisacodyl)) 5 mg PO HS 02/19/25
bisacodyl 5 mg tablet,delayed release (Dulcolax (bisacodyl)) 5 mg PO HSPRN PRN constipation 02/19/25
candesartan 32 mg-hydrochlorothiazide 12.5 mg tablet 1 tab PO DAILY 02/19/25
carbidopa 25 mg-levodopa 100 mg tablet 1.5 tab PO TID 02/19/25
ondansetron HCl 4 mg tablet 4 mg PO Q8HPRN PRN nausea/vomiting 02/19/25
Review of Systems
-
History Source: Patient
Respiratory: Reports Trouble Breathing (shortness of breath )
Cardiac: Reports Chest Pain
Physical Exam
Vital Signs
Vital Signs
Temp Pulse Resp BP Pulse Ox
99.5 F 97 28 107/51 96
02/19/25 13:10 02/19/25 18:00 02/19/25 18:00 02/19/25 18:00 02/19/25 18:00
Physical Exam
General: Well Developed, Well Nourished, No Apparent Distress, Comfortable, Conversant and Appears Chronically Ill
HEENT: NormoCephalic, Moist mucous membranes and Atraumatic
Respiratory: Clear and Non Labored Respirations
Cardiac: S1/S2 and Regular Rhythm; No Murmur, Rub or Gallop
GI: Soft, Non Tender, Normal Bowel Sounds and Other (J-Tube )
Rectal: Deferred by Provider
Genito-urinary: Deferred by me
Musculoskeletal: No Clubbing, No Cyanosis and No Edema
Skin: Warm, IV/Catheter Site and Other (RCW port )
Neuro: Awake, Alert, AO x 3 and Nonfocal/grossly intact
Psych: Calm and Intact Judgment/Insight
Laboratory Results
-
02/19/25 13:28
02/19/25 16:06
Laboratory Results
Total Bilirubin 0.4 mg/dl (0.2-1.3) 02/19/25 16:06
AST 24 U/L (17-59) 02/19/25 16:06
ALT < 10 U/L (0-50) 02/19/25 16:06
Alkaline Phosphatase 67 U/L (38-126) 02/19/25 16:06
Troponin I < 0.012 ng/ml 02/19/25 20:35
Lipase 158 U/L (23-300) 02/19/25 16:06
Data Reviewed
-
CT Scan: Report Reviewed by me (Chest/Abd/Pel: CHEST CTA: 1. Mild subpleural airspace consolidation in the basilar segments of both lower lobes. Diagnostic possibilities are (1) mild bilateral lower lobe pneumonia or (2) subpleural subsegmental
atelectasis in the setting of mildly decreased bilateral lung volumes. 2. Mild jairo)
Lab Data: Labs Reviewed by me (WBC 17.0, Neut 81.9, Na+ 128)
Impression/Plan
-
IMPRESSION/PLAN:
#chest pain with shortness of breath
#sepsis likely 2/2 chemical pneumonitis from bolus tube feedings
tube feedings changed from continuous to bolus today, symptoms presented after 2nd bolus feeding
WBC 17.0, Neut 81.9
UA: negative
Urine Cx: pending
Blood Cx: pending
EKG: SINUS RHYTHM WITH PREMATURE ATRIAL COMPLEXES
T WAVE ABNORMALITY, CONSIDER ANTEROLATERAL ISCHEMIA
Chest/Abd/Pel CT: CHEST CTA:
1. Mild subpleural airspace consolidation in the basilar segments of both lower lobes. Diagnostic possibilities are (1) mild bilateral lower lobe pneumonia or (2) subpleural subsegmental
atelectasis in the setting of mildly decreased bilateral lung volumes.
2. Mild bilateral lower lobe bronchitis.
3. Mild right hilar lymphadenopathy.
4. Small pericardial effusion.
5. Mild calcific atherosclerotic plaque in the coronary arteries.
6. Mild circumferential wall thickening in the distal esophagus (ESOPHAGEAL CARCINOMA) which appears to have decreased since 11/30/2024.
ABDOMEN and PELVIS:
1. Mild wall thickening in the gastric cardia and fundus which has decreased since 11/24/2024 consistent with interval improvement in esophageal and gastric carcinoma.
2. Left-sided percutaneous jejunostomy tube in place with mild surrounding jejunal wall thickening.
3. Mild polycystic liver disease.
4. Mild to moderate chronic bilateral renal disease.
5. Severe calcific atherosclerotic plaque in both proximal renal arteries with probable greater than 70% bilateral renal artery stenoses.
6. Moderate amount of fecal material throughout the colon suggesting constipation.
7. Severe diverticulosis in the sigmoid colon.
8. Severely enlarged prostate gland.
9. Severe lower lumbar discogenic degenerative disease and facet joint arthrosis.
- Admit to med/surg
- IVF NSS 125cc/hr
- IV Unasyn
- supportive care
#stage III adenocarcinoma of esophagus
J-Tube with bolus feedings (was changed today to bolus feeding from continuous feedings)
Patient follow with [facility] - Dr. Wolfe
#hypertension
- continue candesartan
- hold hydrochlorothiazide
#Parkinson's Disease
- continue carbidopa-levodopa
#hyponatremia
Na+ 128
appears to be patient baseline
- monitor BMP
Code status: full code
DVT prophylaxis: Lovenox sq
[2025-02-19] MEDS: ROCEPHIN 1000 MG IV (21:36)
[2025-02-19] MEDS: VIBRAMYCIN 100 MG PO (21:36)
--- NOTE | 2025-02-19 21:41 | W.PN.UPDATE ---
Update Note
Progress Note Update
This note serves as an addendum to the H&P by vocational nursing instructor BERNARDINO
Dunia Moreno
HPI
84M HX HTN, Esophageal CA, undergoing chemo recent diagnostic laparoscopy, revision of jejunostomy tube (12/21/24)
- he was on cont. TF then chaged to blus feeding starts today.
- After second bolus within half an hour he developed the symptoms. Lasted for hours. Currently improved.
- Currently denying chest pain or shortness of breath.
- Also denying abdominal pain fever or chills.
Relevant VS T99.5 BP 98/55 - 105/50 POx hi 90s on RA
PE
Gen: NAD
HEENT: anicteric
Neck: supple
Lungs: clear , symmetric AE
Cor: RR, no M
Abdomen: minimally distended but soft. J-tube in place. No bleeding or drainage. No rebound or guarding
OPTOMETRIST ASSISTANT: AAO3
Relevant Data
Abnormal Lab
02/19/25 02/19/25 02/19/25
13:28 16:06 17:45
WBC 17.0 H
RBC 3.06 L
Hgb 9.6 L
Hct 29.3 L
MCV 95.8 H
MCH 31.4 H
MCHC 32.8 L
RDW 21.7 H
Abs Immat Gran (auto) 0.1 H
Absolute Neuts (auto) 13.9 H
Absolute Lymphs (auto) 0.2 L
Absolute Monos (auto) 2.7 H
Immature Gran % 0.6 H
Neutrophils % 81.9 H
Lymphocytes % 1.4 L
Monocytes % 15.9 H
Sodium 128 L
BUN 33 H
Glucose 112 H
Total Protein 6.2 L
Urine Bacteria (Reflex) Few A
Urine Albumin (Reflex) 1+ A
NO PRIOR hospitalist admission:
CT Pe/abd/pel W
CHEST CTA:
1. Mild subpleural airspace consolidation in the basilar segments of both lower lobes.
Diagnostic possibilities are (1) mild bilateral lower lobe pneumonia or (2) subpleural subsegmental atelectasis in the setting of mildly decreased bilateral lung volumes.
2. Mild bilateral lower lobe bronchitis.
3. Mild right hilar lymphadenopathy.
4. Small pericardial effusion.
5. Mild calcific atherosclerotic plaque in the coronary arteries.
6. Mild circumferential wall thickening in the distal esophagus (ESOPHAGEAL CARCINOMA) which appears to have decreased since 11/30/2024.
ABDOMEN and PELVIS:
1. Mild wall thickening in the gastric cardia and fundus which has decreased since 11/24/2024 consistent with interval improvement in esophageal and gastric carcinoma.
2. Left-sided percutaneous jejunostomy tube in place with mild surrounding jejunal wall thickening.
3. Mild polycystic liver disease.
4. Mild to moderate chronic bilateral renal disease.
5. Severe calcific atherosclerotic plaque in both proximal renal arteries with probable greater than 70% bilateral renal artery stenoses.
6. Moderate amount of fecal material throughout the colon suggesting constipation.
7. Severe diverticulosis in the sigmoid colon.
8. Severely enlarged prostate gland.
9. Severe lower lumbar discogenic degenerative disease and facet joint arthrosis.
ASSESSMENT & PLAN
Bilateral LL PNA plus subpleural subsegmental atelectasis
Recently started bolus feeds
Presumed aspiration pneumonitis with element of brewing sepsis
- BCx
- IV Unasyn in place of IV CFP and PO Doxy
- Speech eval
J Tube dependent nutrition
- [facility] consult for J Tube feeding
Stage III Esophageal CA
- S/p 4 rounds of chemo weekly - last chemo was 01/31
- S/p XRT - last XRT on 02/07 with XRT
- P Oncologist: [facility]
Chr Hyponatremia
- Stop HCTZ
- Trend Na in am
Benign HTN
- on Candesartan
- Hold HCTZ portion
Parkinson dz by Med list
- on POT TENDER carbidopa - Levodopa
DVT Px: LMWH
Full code
IP MS
[2025-02-19] MEDS: NSS 1000 IV (21:46)
--- NOTE | 2025-02-19 23:35 | PTCARENOTE ---
Received patient from ER. AAOx3, forgetful?. stable vitals. c/o chest discomfort with deep breaths. POC reviewed with patient.
[2025-02-20] VITALS (92 sets, daily range): BP systolic 74–124; BP diastolic 45–81; BMI 23.7
[2025-02-20] MEDS: TYLENOL 650 MG PO (03:14)
[2025-02-20] MEDS: UNASYN IV ×4 (03:15→21:49)
[2025-02-20] MEDS: NSS 500 IV (04:00)
[2025-02-20 04:05] LABS: Hematocrit 23.3 % (39.0-52.0); Hemoglobin 8.1 g/dL (13.0-18.0); Mean Corp Hgb Conc. 34.8 g/dL (33.0-37.0); Mean Corpuscular Volume 94.0 fL (80.0-94.0); Platelet Count 151 10^3/uL (130-400); Red Cell Dist. Width 21.9 % (11.5-14.5)
[2025-02-20 04:11] LABS: APTT 32.4 Sec (23.4-35.0)
[2025-02-20 04:22] LABS: Troponin I < 0.012 ng/ml
--- NOTE | 2025-02-20 04:22 | W.PN.UPDATE ---
Addendum entered and electronically signed by AMY Ibrahim 02/20/25 06:16:
Cardiology made aware of consult- requesting pt to start levo and give amio bolus in place of 2.5mg Lopressor as well as continuing edwige. Pt transferred to ICU due to hospital protocol of running two pressors.
Original Note:
Update Note
Progress Note Update
~ RN called at 0336 to make this ENROBER aware that pts fitness watch had alarmed that he was in afib- pt medsurg at the time so he was placed on a monitor and he was afib in the 130s-140s. with complaints of 3-4/10 CP. EKG obtained. Vitals: BP 74/46 HR:
139 resp 22 SPO2 95% on RA Temp 99.9- Tylenol given. ENROBER at the bedside. nss IVF bolus running wide open. BPs still 80s/40s with HR in the 130s. Pt now complaining of 1.5/10 midsternal CP. Pt denies cardiac history. CBC, BMP, MAG, PTT, LACTIC and
TROP drawn. Pt unable to swallow pills due to aspiration status- will tx for IMU for EDWIGE support. Cards consulted. with hx of CA hold off on anticoags at this time.
LABS: NA 131, K 3.9, Mag 1.9, Lactic 0.8, Trop <0.012
[2025-02-20 04:31] LABS: Blood Urea Nitrogen 29 mg/dl (9-20); Calcium 8.5 mg/dl (8.4-10.2); Carbon Dioxide 24 mmol/L (22-30); Chloride 103 mmol/L (98-107); Estimated Creatinine Clearance 56 ml/min; Glucose 105 mg/dl (70-99); Magnesium 1.9 mg/dl (1.6-2.3); Potassium 3.9 mmol/L (3.5-5.1); Sodium 131 mmol/L (135-145); eGFR > 60.00
--- NOTE | 2025-02-20 04:46 | PTCARENOTE ---
Patient c/o mild Chest discomfort, medicated Tylenol see OCT. RN noted patient's watch alarming for 'abnormal HR'. Obtained EKG and placed patient on tele showing Afib in 140s-150s. Patient doesn't have any history of afib. BP- 83/50. Yecenia Serna,
FOOD TECHNOLOGIST made aware. Came to the floor to assess patient. No change in BP with bolus NS 1L. New order to transfer patient to IMU. Report called to the IMU RN, transferred with all belongings.
[2025-02-20] MEDS: NSS 1000 IV ×3 (05:00→20:09)
[2025-02-20] MEDS: NEO-SYNEPHRINE 250 IV (05:06)
--- NOTE | 2025-02-20 05:14 | PTCARENOTE ---
Received patient as transfer from 4th floor. Patient aao x3, c/o head, chest and neck pain 08/24 post tylenol. HR in the 120-130's, afib with PVCs, bp 116/68, decreased to 98/51. Sandip started at 20mcg/min, 6ml/hr. Current bp 105/50. Will administer
Metoprolol 2.5mg as ordered. Patient currently c/o restless legs, REFERRAL AND INFORMATION AIDE present at bedside. Patient resting with no other s/s of pain. Call castro within reach. Will monitor patient closely.
[2025-02-20] MEDS: CORDARONE 103 MG IV (06:29)
[2025-02-20] MEDS: CORDARONE 518 MG IV ×2 (07:18→21:16)
--- NOTE | 2025-02-20 08:31 | VNURNOTE ---
Chart reviewed. Patient is current with VN. Will continue to follow hospital course and DC plans.
--- NOTE | 2025-02-20 08:40 | PTCARENOTE ---
Assumed care of patient this AM. Patient is currently on amio drip at 1mg/33.1mls/hr. heart rates 110's-120's afib. Sandip drip at 40mcg./12mls/hr SBP's have been 90-low 100's. Spo2 on room air mid -upper 90's. Patient reports discomfort with deep
breaths. Patient's at bedside. Update and emotional support provided. IV team to room and accessed right SQ port. Call castro in reach. Will monitor.
--- NOTE | 2025-02-20 09:04 | CON.CAR ---
Addendum entered and electronically signed by Avtar London DO 02/20/25 11:01:
I saw and examined the patient.
The Bell Clerk's note was reviewed and I agree with the note.
Comment:
Plan:
Patient with hx of esoph CA s/p Jtube placement, completed chemo, Parkinsons presented with acute onset of chest pain and shortness of breath shortly after receiving bolus tube feeding.
Trop negative. EKG stable.
New AFib, cont rate control strategy for now in setting of pneumonitis
Start IV Heparin for stroke prophylaxis
Oncology to eval
Check echo
Check TSH
Holding OP candesartan/HCTZ for now with hypotension
Discussed with at bedside
Original Note:
Consultation
Consultation Request
Date/Time Consultation Performed: 02/20/25
Requesting Provider: Dr. Eller
Performing Provider: Katiuska Solorzano PA-C for Dr. London
Reason for Consultation: afib
Medical History
-
Chief Complaint: CP, SOB
History of Present Illness:
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 Reportedly 02/19 his continuous tube feedings were changed to bolus
feedings. had administered the second bolus tube feeding reportedly without incident, however then approximately half hour later patient developed chest discomfort and shortness of breath. He presented for further evaluation of this. Then
last evening patient noted his Fitbit alarming A-fib. He was placed on telemetry monitoring which confirmed A-fib, which is new diagnosis for patient. He was transferred to IMU due to rapid A-fib with hypotension. Cardiology consulted for further
evaluation. No present CP, SOB. Reports his brother has afib.
PMH:
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
Parkinson's disease
Hypertension
Hyponatremia
Past Medical History
Past Medical History: Other (in HPI)
Social History
Tobacco: Non-Smoker
Alcohol: Occasional
Personal:
Living: With Family
Employment: Retired
Family History
Family History: Cancer and Other (afib)
Allergies / Home Medications
Allergy/AdvReac Type Severity Reaction Status Date / Time
No Known Allergies Allergy Verified 02/19/25 13:09
�Medication �Instructions �Recorded �Confirmed �Type
bisacodyl 5 mg tablet,delayed 5 mg PO HS Constipation 02/19/25 02/19/25 History
release (Dulcolax (bisacodyl))
bisacodyl 5 mg tablet,delayed 5 mg PO HSPRN PRN constipation 02/19/25 02/19/25 History
release (Dulcolax (bisacodyl))
candesartan 32 1 tab PO DAILY Blood Pressure 02/19/25 02/19/25 History
mg-hydrochlorothiazide 12.5 mg
tablet
carbidopa 25 mg-levodopa 100 mg 1.5 tab PO TID PARKINSON 02/19/25 02/19/25 History
tablet
ondansetron HCl 4 mg tablet 4 mg PO Q8HPRN PRN nausea/vomiting 02/19/25 02/19/25 History
Review of Systems
-
History Source: Patient and Family
All other systems: Negative unless noted
Physical Exam
Vital Signs
Temp Pulse Resp BP Pulse Ox
99.0 F 119 20 108/74 96
02/20/25 04:45 02/20/25 08:40 02/20/25 08:40 02/20/25 08:40 02/20/25 08:40
Lab Results
02/20/25 03:47
02/20/25 03:47
Troponin I < 0.012 ng/ml 02/20/25 03:47
Mkb-P-Jdjiwopugto Pept 1250 pg/ml 02/19/25 16:06
Physical Exam
General: No Apparent Distress and Comfortable
HEENT: Normocephalic, Anicteric and Moist Mucous Membranes
Respiratory: Clear (anterolaterally) and Non Labored Respirations
Cardiac: S1/S2 and Irregular Rhythm
GI: Soft, Non Tender, Non Distended and Normal Bowel Sounds
Musculoskeletal: No Clubbing, No Cyanosis and No Edema
Skin: Warm and Dry
Neuro: AO x 3
Impression / Plan
-
Primary Clinical Nutritionist: Dr. Gutierrez
Assessment:
Presentation with CP, SOB
Pneumonitis, suspected secondary to bolus TFs
Atrial fibrillation with RVR, new diagnosis
Hypotension requiring pressors
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
Parkinson's disease
Hypertension
Hyponatremia
Concern for bilateral renal artery stenosis by CT abdomen and pelvis
DDD
Severe diverticulosis
Anemia
Echo 09/26/2023: EF 55%, mild MR, mild TR, PAP 20 to 25 mmHg, aortic root normal size, interatrial septum hypermobile and aneurysmal with no evidence of shunt
ECHO 02/19/25: pending
Plan:
- Patient presented with acute onset of chest pain and shortness of breath shortly after receiving bolus tube feeding.
- CP resolved. trop negative
- EKG reviewed by me, and compared to prior with similar lateral T wave inversion in lateral leads
- Concern for pneumonitis by chest CTA. continue abx per primary service
- noted to go into afib overnight with associated hypotension. currently on jhony @40 as well as IV amio @1 as well as IVF. HR and BP improved at present. ok to stay in IMU at this time. follow QTc on amiodarone. repeat EKG in AM
- [id number] score of 3 for age, HTN. hgb 8.1. denies history of bleeding or falls. would consider placing on IV heparin, may need heme/onc consult. followed by Dr. Wolfe as OP. iron studies ordered by me
- check echo, ordered by me. last from 09/2023 as above
- check TSH, ordered by me
- follow volume status
- continue treatment of pneumonitis per primary service, on unasyn
- holding OP candesartan/HCTZ for now with hypotension
- d/w patient and at bedside
- d/w nursing
Data Reviewed
-
EKG: Tracing Personally Visualized and interpreted
CT Scan: Report Reviewed by me
Medical Tests (Nuc Med, Echo etc): Report Reviewed by me
Labs: Labs Reviewed by me
Old Records: Reviewed
[2025-02-20] MEDS: SINEMET 25-100 1.5 TABLET PO ×3 (10:29→21:50)
[2025-02-20] MEDS: FLUSH (NSS) 1 FLUSH IV (10:30)
[2025-02-20 11:20] LABS: Iron < 20 ug/dl (49-181)
[2025-02-20 11:22] LABS: Total Iron Binding Capacity 294 ug/dl (261-462)
--- NOTE | 2025-02-20 11:28 | W.PN.HOSP.TC ---
Today's Communication/Plan
-
Monitor vital signs see plan
Continue with Amio drip
Wean pressors as tolerated
Continue with Unasyn
Check echo
Check TSH
Nutrition consult for tube feeding
Assessment / Plan
Assessment / Plan
General: Well Developed, Well Nourished, No Apparent Distress
HEENT: NormoCephalic, Moist mucous membranes and Atraumatic
Respiratory: Clear and Non Labored Respirations
Cardiac: S1/S2 and irregular,tachycardia
GI: Soft, Non Tender, Normal Bowel Sounds and Other (J-Tube )
Musculoskeletal: No Edema
Skin: Warm, IV/Catheter Site and Other (RCW port )
Neuro: Awake, Alert, AO x 3 and Nonfocal/grossly intact
Psych: Calm and Intact Judgment/Insight
chest pain with shortness of breath
#sepsis likely 2/2 aspiration pneumonia from bolus tube feedings; per spouse patient had episode of vomiting. does have component of bronchitis so will start duoneb prn
Also appears to have subpleural subsegmental atelectasis
tube feedings changed from continuous to bolus the day of admission, symptoms presented after 2nd bolus feeding
WBC 17.0, Neut 81.9
UA: negative
Blood Cx: pending
Chest/Abd/Pel CT: CHEST CTA:
1. Mild subpleural airspace consolidation in the basilar segments of both lower lobes. Diagnostic possibilities are (1) mild bilateral lower lobe pneumonia or (2) subpleural subsegmental
atelectasis in the setting of mildly decreased bilateral lung volumes.
2. Mild bilateral lower lobe bronchitis.
3. Mild right hilar lymphadenopathy.
4. Small pericardial effusion.
5. Mild calcific atherosclerotic plaque in the coronary arteries.
6. Mild circumferential wall thickening in the distal esophagus (ESOPHAGEAL CARCINOMA) which appears to have decreased since 11/30/2024.
ABDOMEN and PELVIS:
1. Mild wall thickening in the gastric cardia and fundus which has decreased since 11/24/2024 consistent with interval improvement in esophageal and gastric carcinoma.
2. Left-sided percutaneous jejunostomy tube in place with mild surrounding jejunal wall thickening.
3. Mild polycystic liver disease.
4. Mild to moderate chronic bilateral renal disease.
5. Severe calcific atherosclerotic plaque in both proximal renal arteries with probable greater than 70% bilateral renal artery stenoses.
6. Moderate amount of fecal material throughout the colon suggesting constipation.
7. Severe diverticulosis in the sigmoid colon.
8. Severely enlarged prostate gland.
9. Severe lower lumbar discogenic degenerative disease and facet joint arthrosis.
gentle hydration
- IV Unasyn
- supportive care
Over time patient was hypotensive and severely tachycardic with A-fib with RVR. Given his hypotension he was then transferred to IMU for pressor requirement. Was put on jhony and levo. Now only on jhony. Wean pressors as tolerated for MAP greater
than 65
New onset A-fib with RVR
Cardiology following
Agree with IV heparin
Also started on amnio drip
echo
check TSH
Small pericardial effusion on CT, defer to cardiology
Incidental finding of calcified atherosclerotic plaque in the proximal renal arteries, with possible bilateral renal artery stenosis
Patient is currently not hypertensive. Advised patient to follow-up closely outpatient
stage III adenocarcinoma of esophagus
S/p 4 rounds of chemo weekly - last chemo was 01/31
- S/p XRT - last XRT on 02/07 with XRT
recent diagnostic laparoscopy. Revision of jejunostomy tube 12/21/24
J-Tube with bolus feedings (was changed 02/19 to bolus feeding from continuous feedings). Nutrition consult for J-tube feeding
Patient follow with [facility] - Dr. Wolfe
per spouse, patient was able to tolerate very little PO recently.
oncology eval
Constipation
Laxatives
hypertension
- Hold candesartan
- hold hydrochlorothiazide
Parkinson's Disease
- continue carbidopa-levodopa
hyponatremia
Na+ 128
Slowly improving, monitor
Severely enlarged prostate gland on CT scan
No prior history, currently without any urinary retention
Bladder scan as needed
Code status: full code
DVT prophylaxis: IV hep
I spent a total of 57 minutes with the patient or on the floor. More than 50% of this time involved counseling and coordination of care.
Anticipated Discharge: > 48 hours
Subjective/Interval History
-
Date of Service: February 20, 2025
denies pain
Objective Data
-
Labs:
Laboratory Results
02/20/25 02/20/25 02/20/25
03:44 03:47 03:47
WBC Pending 12.2 H
Hgb Pending 8.1 L
Hct Pending 23.3 L
Plt Count Pending 151 D
APTT 32.4
Sodium Cancelled 131 L
Potassium Cancelled
Chloride
Carbon Dioxide
BUN
Creatinine
Glucose
Calcium
02/20/25 02/20/25 02/20/25
03:47 03:47 03:47
WBC
Hgb
Hct
Plt Count
APTT
Sodium
Potassium 3.9
Chloride Cancelled 103
Carbon Dioxide Cancelled 24
BUN Cancelled
Creatinine
Glucose
Calcium
02/20/25 02/20/25 02/20/25
03:47 03:47 03:47
WBC
Hgb
Hct
Plt Count
APTT
Sodium
Potassium
Chloride
Carbon Dioxide
BUN 29 H
Creatinine Cancelled 0.9
Glucose Cancelled 105 H
Calcium Cancelled
02/20/25 02/20/25
03:47 10:37
WBC
Hgb
Hct
Plt Count
APTT Pending
Sodium
Potassium
Chloride
Carbon Dioxide
BUN
Creatinine
Glucose
Calcium 8.5
Vital Signs:
Vital Signs
Temp Pulse Resp BP Pulse Ox
99.0 F 119 20 108/74 96
02/20/25 04:45 02/20/25 08:40 02/20/25 08:40 02/20/25 08:40 02/20/25 08:40
I&O
02/19/25 02/20/25 02/21/25
06:59 06:59 06:59
Output Total 900 / 900 280 / 280
Balance -900 / -900 -280 / -280
--- NOTE | 2025-02-20 12:18 | PTCARENOTE ---
Patient converted to NSR with PVC's. Confirmed with ECG. MD made aware. Heart rates 70-80's. PTT to be obtained and heparin drip to be started.
--- NOTE | 2025-02-20 12:35 | CM ---
Patient with Hx esophageal cancer on chemo/radiation, J-Tube placement 12/19, Parkinson's Disease with Dx sepsis likely 2/2 chemical pneumonitis from bolus tube feedings. O2 2L. Receiving IV Amio, IV Abx, Heparin gtt, IV Sandip-synephrine. NPO/IVF.
Nutrition Consult. Per nurse; forgetful, ambulatory in room.
Met with patient and Shu;
the patient resides with his in a 3rd floor apartment with elevator access.
He was independent with ADLs and ambulation using his RW.
The patient sleeps in a hospital bed.
states she has been administering the patient's Jevity tube feedings at home, and decided on her own to do bolus feeds using a syringe. She says no one instructed her to make this change, and she decided to do it as the patient did not want
around the clock tube feedings. says she needs another delivery of tube feeds for home.
DME - hospital bed & w/c through [employer], RW, tube feeds/supplies from [facility]
Current with [facility]
No prior SNF
PCP - Francisco Tesfaye
Pharmacy - [facility]
Patient and says they feel they are managing well at home without the need for a caregiver.

CM Consult: [facility] check Eliquis
Pharmacist quoted cost $70/month, she ran the script with a test claim, pharmacist activated the copay card for him and gave pharmacist his serum creatinine and wt as requested. CM provided the same Eliquis Free Month card that the pharmacy
activated. Patient/ okay with cost.
Case discussed with Heather, Prop Attendant; she will provide new intermittent tube feed orders.
Spoke with [facility]; she was notified that patient was here with Dx sepsis likely 2/2 chemical pneumonitis from bolus tube feedings. [facility] will check that patient has a pump if patient wants to do intermittent tube feeds at home.
Informed her that says she needs another delivery of tube feeds for home.
Spoke with [facility] Liaison re; home tube feeds. Patient had pump at home for J-tube feeds, and had multiple nurse visits for home teaching.
CM continuing to follow for d/c needs.
Plan obtain new J-tube feed orders and provide to [facility] prior to discharge.
Plan home with resumption [facility] for J-tube feeds, XIOM[facility], with .
[2025-02-20 13:08] LABS: APTT 31.7 Sec (23.4-35.0)
[2025-02-20] MEDS: HEPARIN 25000 UNITS/250 ML IV (14:34)
[2025-02-20] MEDS: DULCOLAX 5 MG PO (16:06)
[2025-02-20 18:21] LABS: Ferritin 343.0 ng/ml (17.9-464.0)
--- NOTE | 2025-02-20 18:23 | PTCARENOTE ---
Sandip drip d/c at this time. BP's have remained stable. MAPS > 65. TF started at 188 via J-TUBE. Jevity 1.5 at 20mls/hr with flush 25mls/hr. Goal is 65 mls/hr. Will increases according to MD order.
[2025-02-20 22:37] LABS: APTT 64.1 Sec (23.4-35.0)
--- NOTE | 2025-02-20 23:49 | PTCARENOTE ---
Pt febrile, c/o chills. Tachycardic to 130s, tachypneic 20s-30s. Tylenol given per OCT.
[2025-02-21] VITALS (25 sets, daily range): BP systolic 93–150; BP diastolic 54–94
--- NOTE | 2025-02-21 02:55 | PTCARENOTE ---
Maintained on amio gtt, heparin gtt, IVF, see worklist for titrations. IV abx given per OCT. Pt remains NSR on CM. Pt drowsy, but arousable to voice. Assessment as documented. VSS at this time. TF maintained through J-tube, rate adjusted per orders.
Call castro within reach.
[2025-02-21] MEDS: UNASYN IV ×4 (03:35→23:02)
[2025-02-21] MEDS: NSS 1000 IV (04:53)
[2025-02-21 05:00] LABS: Hematocrit 22.9 % (39.0-52.0); Hemoglobin 7.5 g/dL (13.0-18.0); Mean Corp Hgb Conc. 32.8 g/dL (33.0-37.0); Mean Corpuscular Volume 95.8 fL (80.0-94.0); Nucleated Red Blood Cells % 0 % (-); Platelet Count 131 10^3/uL (130-400); Red Cell Dist. Width 21.4 % (11.5-14.5)
[2025-02-21 05:08] LABS: APTT 81.6 Sec (23.4-35.0)
[2025-02-21 05:25] LABS: ALT (SGPT) < 10 U/L (0-50); AST (SGOT) 20 U/L (17-59); Albumin 2.6 g/dl (3.5-5.0); Alkaline Phosphatase 64 U/L (38-126); Blood Urea Nitrogen 28 mg/dl (9-20); Calcium 8.2 mg/dl (8.4-10.2); Carbon Dioxide 20 mmol/L (22-30); Chloride 107 mmol/L (98-107); Estimated Creatinine Clearance 56 ml/min; Glucose 118 mg/dl (70-99); Potassium 3.5 mmol/L (3.5-5.1); Sodium 132 mmol/L (135-145); Total Protein 5.1 g/dl (6.3-8.2); eGFR > 60.00
--- NOTE | 2025-02-21 06:38 | CON.ONC ---
Consultation
-
Date Consultation Requested: 02/21/25
Date Consultation Performed: 02/22/25
Performing Provider: Blaine Bains
Impression
Impression
Patient is a 84 yo male with past medical history of hypertension, Parkinson's Disease, hyponatremia and known stage III adenocarcinoma of esophagus who presented to the ED on 02/19 with chest pain and shortness of breath.
Chest pain and shortness of breath
- sepsis likely secondary to aspiration pneumonia from bolus tube feedings
- IV Unasyn, supportive care
New onset A-fib with RVR
- management per cardiology and primary team
- IV heparin
Stage III adenocarcinoma of esophagus
- follows with Dr. Wolfe at [place]
- s/p 4 rounds of chemotherapy last 01/31 and radiation completed 02/06
- Patient awaiting to schedule reimaging prior to admission
- CT CTA completed in ED shows decreased distal esophageal wall thickening when compared to 11/30/24
Plan
Plan
- continue to follow while admitted
- will schedule the planned remaining scans outpatient for restaging s/p completion of chemo/radiation (02/06)
Patient History
History of Present Illness
Patient is a 84 yo male with past medical history of hypertension, Parkinson's Disease, hyponatremia and known stage III adenocarcinoma of esophagus who presented to the ED on 02/19 with chest pain and shortness of breath. Patient recently had a
J-tube placed on 12/19 with revision 12/21 and had been receiving continuous tube feedings until yesterday when it was changed to bolus feeding. administered second bolus feeding without issue and within 30 minutes patient became symptomatic.
In the ED patient had a CT CTA (02/19) which revealed mild subpleural airspace consolidation in the basilar segments of both lower lobes, possibly mild bilateral lower lobe pneumonia or subpleural subsegmental atelectasis in the setting of mildly
decreased bilateral lung volumes. Also noted were mild right hilar lymphadenopathy and mild circumferential wall thickening in the distal esophagus which appears to have decreased since 11/30/2024.
CT AP (02/19) revealed mild wall thickening in the gastric cardia and fundus which has decreased since 11/24/2024 consistent with interval improvement in esophageal and gastric carcinoma.
Labs on admission: WBC 17.0, Hgb 9.6, Plt 205. Preliminary blood culture is positive.
Patient thought to have sepsis secondary to aspiration pneumonia. Patient was started on hydration, IV unasyn and supportive care. Patient then became hypotensive and tachycardic with A-fib with RVR. Patient transferred to IMU and was started on
levo and sandip.
Patient was diagnosed with Stage III adenocarcinoma of the esophagus. Patient follows with Dr. Wolfe at [place]. Patient is s/p 4 rounds of chemotherapy, last treatment 01/31/2025. Patient also underwent RT with [facility], last treatment 02/06/25.
J tube placed 12/21/2024. Patient only takes Dulcolax pill PO. Patient was planned for a follow up PET scan after completion of the radiation to assess the status of the esophageal tumor.
Today patient is seen at the bedside. Patient states he is feeling much better today. Patient states he is still short of breath but its improving. He still notes his chronic cough. Patient denies chest pain, sore/irritated throat, abdominal pain.
Patient is urinating and having bowel movements regularly.
Past-Medical/Surgical History
Medical History
Stage III Adenocarcinoma of Esophagus
Melanoma on back
Prostate Cancer
HTN
Parkinson's Disease
Hyponatremia
Surgical History
Appendectomy
Cancerous skin lesion removal
Cataracts
RAL J-Tube placement 12/19/2024
Social History
Tobacco: Non-smoker
Alcohol: Occasional
Family History
Brother w/ bladder cancer
Father with Parkinsons
Patient Medication
�Medication �Instructions �Recorded �Confirmed �Last Taken �Type
bisacodyl 5 mg tablet,delayed 5 mg PO HS Constipation 02/19/25 02/19/25 02/18/25 History
release (Dulcolax (bisacodyl))
bisacodyl 5 mg tablet,delayed 5 mg PO HSPRN PRN constipation 02/19/25 02/19/25 02/10/25 History
release (Dulcolax (bisacodyl))
candesartan 32 1 tab PO DAILY Blood Pressure 02/19/25 02/19/25 02/19/25 History
mg-hydrochlorothiazide 12.5 mg
tablet
carbidopa 25 mg-levodopa 100 mg 1.5 tab PO TID PARKINSON 02/19/25 02/19/25 02/19/25 History
tablet
ondansetron HCl 4 mg tablet 4 mg PO Q8HPRN PRN nausea/vomiting 02/19/25 02/19/25 02/09/25 History
apixaban 5 mg tablet (Eliquis) 5 mg PO BID #60 tabs 02/20/25 Unknown Rx
Active Medications
Generic Name Dose Route Start Last Admin
Trade Name Freq PRN Reason Stop Dose Admin
Acetaminophen 650 mg 02/19/25 23:06 02/20/25 03:14
Acetaminophen 325 Mg Tablet PO 03/19/25 23:05 650 mg
Q4HPRN PRN Administration
mild pain/VERA/temp> 100.4F
Albuterol/Ipratropium 3 ml 02/20/25 11:47
Ipratropium 0.5/Albuterol 3 Mg (3 Ml Ampul) INH
R Q4HPRN PRN
Sob or wheezing
Protocol
Bisacodyl 5 mg 02/20/25 22:00 02/20/25 21:29
Bisacodyl 5 Mg Enteric Coated Tablet PO 03/20/25 21:59 Not Given
HS SOLIS
Bisacodyl 10 mg 02/19/25 23:06
Bisacodyl 10 Mg Rectal Suppository RECTAL 03/19/25 23:05
[id number] PRN
constipation
Carbidopa/Levodopa 1.5 tablet 02/20/25 08:00 02/20/25 21:50
Carbidopa (25 Mg)/Levodopa (100 Mg) Regular Release Tablet PO 03/20/25 07:59 1.5 tablet
TID SOLIS Administration
Ampicillin Sodium/Sulbactam 120 mls @ 240 mls/hr 02/20/25 04:00 02/21/25 03:35
Sodium 3 gm/ Sodium Chloride IV 120 mls
Q6H SOLIS Administration
Phenylephrine HCl 50 mg in 250 mls @ 0 mls/hr 02/20/25 04:45 02/20/25 05:06
Sandip-Synephrine IV 250 mls
PER PROTOCOL SOLIS Administration
Protocol
Per Protocol
Norepinephrine Bitartrate 4 mg in 250 mls @ 0 mls/hr 02/20/25 06:15
Levophed IV
PER PROTOCOL SOLIS
Protocol
Per Protocol
Amiodarone HCl 900 mg/ 518 mls @ 0 mls/hr 02/20/25 07:00 02/20/25 21:16
Dextrose/Water IV 02/21/25 06:54 518 mls
PER PROTOCOL SOLIS Administration
Protocol
Per Protocol
Heparin Sodium 25,000 units in 250 mls @ 0 mls/hr 02/20/25 10:45 02/20/25 14:34
Heparin 91615 Units/250 Ml IV 250 mls
PER PROTOCOL SOLIS Administration
Protocol
Per Protocol
Polyethylene Glycol 17 grams 02/19/25 23:06
Polyethylene Glycol Powder 17 Grams Packet PO 03/19/25 23:05
DAILYPRN PRN
constipation
Senna/Docusate Sodium 1 tablet 02/19/25 23:06
Docusate W/Senna (Irlanda-Colace) Tablet PO 03/19/25 23:05
BIDPRN PRN
constipation
Sodium Chloride 0 flush 02/19/25 23:00 02/20/25 10:30
Sodium Chloride 0.9% (Flush) Syringe IV 03/19/25 22:59 1 flush
PER PROTOCOL SOLIS Administration
Review of Systems
-
History Source: Patient
Constitutional: Reports Fatigue
EENT: Reports No Symptoms
Respiratory: Reports Cough and Other (shortness of breath)
Cardiac: Reports No Symptoms
GI: Reports No Symptoms
: Reports No Symptoms
Musculoskeletal: Reports No Symptoms
Skin: Reports No Symptoms
Neuro: Reports No Symptoms
Psych: Reports No Symptoms
Physical Exam
-
General: No Apparent Distress and Comfortable
Cardiology: Normal Sinus Rhythm
Pulmonary: Clear
GI: Soft
Extremities: Pulses Present
Skin: Warm and Dry
Psych: Calm
Labs
Lab Results
WBC 8.5 10^3/uL (4.8-10.8) 02/21/25 04:39
RBC 2.39 10^6/uL (4.70-6.10) L 02/21/25 04:39
Hgb 7.5 g/dL (13.0-18.0) L 02/21/25 04:39
Hct 22.9 % (39.0-52.0) L 02/21/25 04:39
MCV 95.8 fL (80.0-94.0) H 02/21/25 04:39
MCH 31.4 pg (27.0-31.0) H 02/21/25 04:39
MCHC 32.8 g/dL (33.0-37.0) L 02/21/25 04:39
RDW 21.4 % (11.5-14.5) H 02/21/25 04:39
Plt Count 131 10^3/uL (130-400) 02/21/25 04:39
MPV 10.0 fL (7.4-10.4) 02/21/25 04:39
Abs Immat Gran (auto) 0.1 10^3/uL (0-0.05) H 02/21/25 04:39
Absolute Neuts (auto) 6.5 10^3/uL (1.4-6.5) 02/21/25 04:39
Absolute Lymphs (auto) 0.3 10^3/uL (1.2-3.4) L 02/21/25 04:39
Absolute Monos (auto) 1.6 10^3/uL (0.1-0.6) H 02/21/25 04:39
Absolute Eos (auto) 0.0 10^3/uL (0-0.7) 02/21/25 04:39
Absolute Basos (auto) 0.0 10^3/uL (0-0.2) 02/21/25 04:39
Immature Gran % 0.6 % (0-0.5) H 02/21/25 04:39
Neutrophils % 76.6 % (42.2-75.2) H 02/21/25 04:39
Lymphocytes % 3.5 % (20.5-51.1) L 02/21/25 04:39
Monocytes % 18.9 % (1.7-9.3) H 02/21/25 04:39
Eosinophils % 0.2 % (0-6) 02/21/25 04:39
Basophils % 0.2 % (0-2) 02/21/25 04:39
Creatinine 0.9 mg/dL (0.7-1.3) 02/21/25 04:39
Vital Signs
Vital Signs
Temp Pulse Resp BP Pulse Ox
97.2 F 80 35 117/64 96
02/21/25 04:22 02/21/25 06:00 02/21/25 06:00 02/21/25 06:00 02/21/25 06:00
--- NOTE | 2025-02-21 07:39 | W.PN.HOSP.TC ---
Addendum entered and electronically signed by Herb Fernandes MD 02/21/25 14:37:
Septic shock.
Original Note:
Today's Communication/Plan
-
IV antibiotics. Amiodarone and Eliquis.
Assessment / Plan
Assessment / Plan
Physical exam:
General: Chronically ill
HEENT: Normocephalic, Atraumatic and Moist Mucous Membranes
Respiratory: Clear to Auscultation; Negative Wheezes, Rales or Rhonchi. Port in place
Cardiac: Regular Rhythm and S1/S2
GI: Soft, Nontender and Nondistended. PEG in place
Musculoskeletal: No Clubbing, No Cyanosis and No Edema
Neuro: Awake, Alert and Oriented
Psych: Calm
A/P:
Sepsis due to aspiration pneumonia:
Continue IV Unasyn
Off pressors
Stop IV fluids
Tolerating feeding tubes
Discussed with at bedside and relative who is a radiologist over the phone
PT eval
Transfer out of IMU
New onset A-fib RVR:
Back to NSR
Oral amiodarone
Oral Eliquis
Stage III adenocarcinoma of esophagus:
Oncology eval appreciated
Hyponatremia:
Improving
Hypertension:
Continue holding antihypertensives and restart in a.m.
Parkinson's:
Continue carbidopa-levodopa
DVT prophylaxis:
Eliquis
CODE STATUS:
Full code
Time spent 35 minutes
Anticipated Discharge: 24 - 48 hours
Subjective/Interval History
-
Date of Service: February 21, 2025
Patient feels better overall today. Back in normal sinus rhythm and blood pressure better. Normal pulse ox. Afebrile
Objective Data
-
Labs:
Laboratory Results
02/20/25 02/21/25 02/21/25
22:17 04:39 11:20
WBC 8.5
Hgb 7.5 L
Hct 22.9 L
Plt Count 131
APTT 64.1 H 81.6 H Pending
Sodium 132 L
Potassium 3.5
Chloride 107
Carbon Dioxide 20 L
BUN 28 H
Creatinine 0.9
Glucose 118 H
Calcium 8.2 L
Total Bilirubin 0.4
AST 20
ALT < 10
Alkaline Phosphatase 64
Vital Signs:
Vital Signs
Temp Pulse Resp BP Pulse Ox
97.8 F 80 35 117/64 96
02/21/25 07:26 02/21/25 06:00 02/21/25 06:00 02/21/25 06:00 02/21/25 06:00
I&O
02/20/25 02/21/25 02/22/25
06:59 06:59 06:59
Intake Total 2180 / 2180
Output Total 900 / 900 1480 / 1480
Balance -900 / -900 700 / 700
[2025-02-21] MEDS: D5/0.9% SODIUM CHLORIDE 1000 IV (08:13)
[2025-02-21] MEDS: SINEMET 25-100 1.5 TABLET PO ×3 (08:14→20:37)
[2025-02-21] MEDS: PACERONE 200 MG PO ×3 (08:45→20:37)
--- NOTE | 2025-02-21 09:46 | W.PN.CARDCBS ---
Today's Communication / Plan
-
Transition heparin to Eliquis if okay with primary team
Continue amiodarone
Treatment of pneumonia per hospitalist
To consider iron infusions
Hold HCTZ candesartan
Impression / Plan
-
Primary Giving Officer: Dr. Gutierrez
Assessment:
Presentation with CP, SOB
Pneumonitis, suspected secondary to bolus TFs
Atrial fibrillation with RVR, new diagnosis
Hypotension requiring pressors
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
Parkinson's disease
Hypertension
Hyponatremia
Concern for bilateral renal artery stenosis by CT abdomen and pelvis
DDD
Severe diverticulosis
Anemia
Echo 09/26/2023: EF 55%, mild MR, mild TR, PAP 20 to 25 mmHg, aortic root normal size, interatrial septum hypermobile and aneurysmal with no evidence of shunt
ECHO 02/19/25: Mild LVH, EF 57%, aortic sclerosis with trace aortic regurgitation, mild TR, pulmonary artery systolic pressures 37 atria and right heart are normal, mild mitral regurgitation
Plan:
He is now in sinus rhythm on amiodarone.
His echocardiogram is satisfactory
Will stop heparin and transition to Eliquis if okay with hospitalist team
He has iron deficiency anemia, defer to hospitalist but favor infusion of intravenous iron.
We can decide as outpatient whether or not to pursue his chest discomfort. Currently he is pain-free.
Treatment of pneumonia per hospitalist.
Would continue to hold candesartan/HCTZ.
Progress Note - Giving Officer
Subjective
Date of Service: February 21, 2025:
84-year-old man with stage III adenocarcinoma of the esophagus status post resection, with J-tube, has received chemotherapy, admitted with possible pneumonia, possibly an aspiration event followed by chest discomfort and new onset atrial
fibrillation. Now converted to sinus rhythm on amiodarone.
PMH: Parkinson's, hypertension, history of hyponatremia
Current medications: Dulcolax, Sinemet, Unasyn, IV heparin, amiodarone 200 mg 3 times daily
115/67, pulse 70, respiratory 25, afebrile, frail, pleasant, J-tube, breath sounds diminished in the lungs, regular rate and rhythm, no obvious murmurs abdomen mildly distended extremities without much edema
EKG today: Sinus rhythm, baseline artifact in V1, LVH, nonspecific ST and T wave changes
Hemoglobin 7.5 had been 7.7 on February 04, sodium 132, potassium 3.5, BUN/creatinine 28 and 0.9, troponin was undetectable
Objective
Labs:
02/21/25 04:39
02/21/25 04:39
Labs
Hgb 7.5 g/dL (13.0-18.0) L 02/21/25 04:39
Hct 22.9 % (39.0-52.0) L 02/21/25 04:39
Plt Count 131 10^3/uL (130-400) 02/21/25 04:39
APTT 81.6 Sec (23.4-35.0) H 02/21/25 04:39
Sodium 132 mmol/L (135-145) L 02/21/25 04:39
Potassium 3.5 mmol/L (3.5-5.1) 02/21/25 04:39
BUN 28 mg/dl (9-20) H 02/21/25 04:39
Creatinine 0.9 mg/dL (0.7-1.3) 02/21/25 04:39
Glucose 118 mg/dl (70-99) H 02/21/25 04:39
Troponins
02/19/25 02/19/25 02/20/25
16:06 20:35 03:47
Troponin I 0.013 < 0.012 < 0.012
Vital Signs and I&O:
Vital Signs
Temp Pulse Resp BP Pulse Ox
36.6 C 65 23 104/61 95
02/21/25 07:26 02/21/25 09:00 02/21/25 09:00 02/21/25 09:00 02/21/25 09:00
Vital Signs
Temp Pulse Resp BP Pulse Ox
36.6 C 65 23 104/61 95
02/21/25 07:26 02/21/25 09:00 02/21/25 09:00 02/21/25 09:00 02/21/25 09:00
Intake & Output
02/19/25 02/20/25 02/21/25 02/22/25
07:59 07:59 07:59 07:59
Intake Total 2180 / 2180
Output Total 900 / 900 1480 / 1480
Balance -900 / -900 700 / 700
Physical Exam
Physical Exam
See above
--- NOTE | 2025-02-21 11:01 | PTCARENOTE ---
Increased tube feed Jevity 1.5 to 60 mL/hr per order. Patient tolerating tube feed. Care ongoing.
[2025-02-21 12:22] LABS: APTT 83.8 Sec (23.4-35.0)
--- NOTE | 2025-02-21 13:08 | CM ---
patient chart reviewed
Current with [facility], [facility] for TF
[facility]
patient current TF at 60cc/hr
patient on heparin
PLAN: obtain new J-tube feed orders and provide to [facility] prior to discharge.
PLAN: home with resumption [facility] for J-tube feeds, [facility], with .
--- NOTE | 2025-02-21 14:02 | PN.CDI ---
CDI
- -
CDI:
Physician Documentation Request
Admit Date: 02/19/25 22:20
Dear Doctor Dena,
Please review the following and provide your response in the progress notes.
Current documentation includes a diagnosis of hypotension.
Clinical Indicators:
PN, 7
#Wean pressors as tolerated
#sepsis likely 2/2 aspiration pneumonia from bolus tube feedings;
#Over time patient was hypotensive and severely tachycardic with A-fib with RVR.
#...Given his hypotension he was then transferred to IMU for pressor requirement.
#...Was put on jhony and levo.
#...Now only on jhony.
#...Wean pressors as tolerated for MAP greater than 65
Please clarify which of the following is the most likely etiology of the above symptoms and treatment rendered:
Septic shock
Hypotension - indicate type/etiology, such as idiopathic, neurogenic or orthostatic, post-procedural, postoperative, due to hemodialysis, chronic, drug induced (indicate drug), etc.
Hypotension - unknown type/etiology
Other(please specify)
Use of terms such as suspected, likely, concern for, or probable (associated with a specific diagnosis that is being evaluated, monitored, or treated as if it exists) are acceptable and can be coded in the inpatient setting, when documented at the
time of discharge.
Thank you,
Elin Sandra RN BSN CCDS
CDI Specialist
Please contact via tiger text
Please use your independent medical judgment in providing your response.
--- NOTE | 2025-02-21 14:36 | PTCARENOTE ---
Patient AOX3. Patient has flat affect and is drowsy, but wakes up to voice. B/L hand tremors. VSS. NSR on monitor. Jevity 1.5 running through PEG tube at 60 mL/hr with a 25 mL/hr flush. Patient tolerating tube feed. Q2 turns. Call castro within reach,
bed in lowest position, and bed of wheels locked.
[2025-02-21] MEDS: ELIQUIS 5 MG TUBE ×2 (15:00→20:37)
--- NOTE | 2025-02-21 17:26 | PTCARENOTE ---
Patient bladder scanned for 516 mL due to him not being able to void throughout the shift. Straight cathed patient for 600 mL. Care ongoing.
--- NOTE | 2025-02-21 21:58 | W.PN.UPDATE ---
Update Note
Progress Note Update
right before tx to tele unit pt afib returned. HR 90-110. Will keep on IMU overnight
[2025-02-22] VITALS (28 sets, daily range): BP systolic 110–163; BP diastolic 61–98; PULSE 81; O2SAT 97
--- NOTE | 2025-02-22 00:37 | PTCARENOTE ---
Flipped back into afib around 20:00 controlled HR 90-110's. BPs stable. at bedside. Amio & eliquis given. Overnight RESOLUTION ANALYST aware. Tube feeds running at goal. Ivabx. q2t. no other issues. will monitor
[2025-02-22] MEDS: UNASYN IV ×4 (04:22→22:04)
[2025-02-22 04:55] LABS: Hematocrit 25.8 % (39.0-52.0); Hemoglobin 8.7 g/dL (13.0-18.0); Mean Corp Hgb Conc. 33.7 g/dL (33.0-37.0); Mean Corpuscular Volume 94.2 fL (80.0-94.0); Nucleated Red Blood Cells % 0 % (-); Platelet Count 152 10^3/uL (130-400); Red Cell Dist. Width 21.1 % (11.5-14.5)
[2025-02-22 05:22] LABS: Blood Urea Nitrogen 25 mg/dl (9-20); Calcium 8.0 mg/dl (8.4-10.2); Carbon Dioxide 20 mmol/L (22-30); Chloride 107 mmol/L (98-107); Estimated Creatinine Clearance 56 ml/min; Glucose 118 mg/dl (70-99); Magnesium 2.0 mg/dl (1.6-2.3); Potassium 3.6 mmol/L (3.5-5.1); Sodium 134 mmol/L (135-145); eGFR > 60.00
[2025-02-22] MEDS: ELIQUIS 5 MG TUBE ×2 (08:01→21:52)
[2025-02-22] MEDS: SINEMET 25-100 1.5 TABLET PO ×3 (08:01→21:52)
[2025-02-22] MEDS: PACERONE 200 MG PO ×3 (08:01→21:53)
--- NOTE | 2025-02-22 08:08 | W.PN.HOSP.TC ---
Today's Communication/Plan
-
Metoprolol. IV antibiotics.
Assessment / Plan
Assessment / Plan
Physical exam:
General: Acute on chronically ill
HEENT: Normocephalic, Atraumatic and Moist Mucous Membranes
Respiratory: Clear to Auscultation; Negative Wheezes, Rales or Rhonchi. Port in place
Cardiac: Irregular rate and rhythm, tachycardic, and S1/S2
GI: Soft, Nontender and Nondistended. PEG in place
Musculoskeletal: No Clubbing, No Cyanosis and No Edema
Neuro: Awake, Alert and Oriented, no neurological deficit
Psych: Calm
A/P:
Sepsis due to aspiration pneumonia:
Continue IV Unasyn
Off pressors
Off IV fluids
Tolerating tube feeding
Also discussed with relative who is a radiologist over the phone yesterday
Discussed with at bedside today
PT eval
Keep on IMU status since patient is back in A-fib
New onset A-fib RVR:
Back in A-fib
Cardiology added today metoprolol succinate 25 mg p.o. daily
Oral amiodarone 200 mg 3 times daily
Oral Eliquis 5 mg p.o. twice a day
Stage III adenocarcinoma of esophagus:
Oncology eval appreciated
Hyponatremia:
Improving
Hypertension:
Now that he is on beta-blockers we will continue holding rest of home antihypertensives-might not need to restart depending on how he does.
Parkinson's:
Continue carbidopa-levodopa
DVT prophylaxis:
Eliquis
CODE STATUS:
Full code
Total time spent on today's encounter was 52 minutes which included time spent in counseling the patient/family regarding diagnosis and treatment plan as listed above, goals of care, and symptom management. Case was discussed with nursing staff,
specialists, and care coordinators/case management. All labs and imaging personally reviewed by me. Remainder the time spent in detailed review of previous records, lab data, imaging, and other medical provider documentation.
Anticipated Discharge: 24 - 48 hours
Subjective/Interval History
-
Date of Service: February 22, 2025
Patient went back into [facility] overnight. Currently denies chest pain. Complains of mild restless leg but usually takes care of by levodopa. Afebrile
Objective Data
-
Labs:
Laboratory Results
02/22/25
04:26
WBC 8.9
Hgb 8.7 L
Hct 25.8 L
Plt Count 152
Sodium 134 L
Potassium 3.6
Chloride 107
Carbon Dioxide 20 L
BUN 25 H
Creatinine 0.9
Glucose 118 H
Calcium 8.0 L
Vital Signs:
Vital Signs
Temp Pulse Resp BP Pulse Ox
97.7 F 111 22 148/97 95
02/22/25 04:07 02/22/25 08:01 02/22/25 06:00 02/22/25 08:01 02/22/25 06:00
I&O
02/21/25 02/22/25 02/23/25
06:59 06:59 06:59
Intake Total 2180 / 2180 1820 / 1820
Output Total 1480 / 1480 1200 / 1200
Balance 700 / 700 620 / 620
[2025-02-22] MEDS: KCL ELIXIR 20 MEQ TUBE (09:35)
--- NOTE | 2025-02-22 09:38 | W.PN.ONC ---
Documented by User: Lashonda Luo DO, Resident 02/22/25 09:48
Today's Communication / Plan
-
- continue to follow while admitted
- Restaging scans arranged outpatient
- treatment of pneumonia per primary team
- treatment of afib per cardiology
Impression
Impression
Patient is a 84 yo male with past medical history of hypertension, Parkinson's Disease, hyponatremia and known stage III adenocarcinoma of esophagus who presented to the ED on 02/19 with chest pain and shortness of breath.
Chest pain and shortness of breath
- sepsis likely secondary to aspiration pneumonia from bolus tube feedings
- IV Unasyn, supportive care
New onset A-fib with RVR
- management per cardiology and primary team
- apixaban 5mg and amiodarone 200 mg
Stage III adenocarcinoma of esophagus
- follows with Dr. Wolfe at [place]
- s/p chemotherapy radiation completed 02/06
- Patient awaiting to schedule restaging imaging prior to admission
- CT CTA completed in ED shows decreased distal esophageal wall thickening when compared to 11/30/24
Plan
Plan
- continue to follow while admitted
- Restaging scans arranged outpatient
- treatment of pneumonia per primary team
- treatment of afib per cardiology
Subjective/Objective
Subjective/Objective
Patient seen today at the bedside with his present. Patient is feeling well this morning, although last night he went back into a fib and was required to stay in IMU. Patient denies current chest pain and all other ROS.
Physical Exam:
General: not in acute distress
Cardiovascular: RRR
Respiratory: diminished breath sounds b/l
Abdomen: soft, nontender
Vital Signs:
Vital Signs
Temp Pulse Resp BP Pulse Ox
98.7 F 111 22 148/97 95
02/22/25 07:30 02/22/25 08:01 02/22/25 06:00 02/22/25 08:01 02/22/25 06:00
Lab Results:
Laboratory Data
WBC 8.9 10^3/uL (4.8-10.8) 02/22/25 04:26
Hgb 8.7 g/dL (13.0-18.0) L 02/22/25 04:26
Plt Count 152 10^3/uL (130-400) 02/22/25 04:26
APTT 83.8 Sec (23.4-35.0) H 02/21/25 11:55
eGFR > 60.00 02/22/25 04:26

Documented by User: Giovanni Bourgeois MD 02/22/25 12:15
Plan
Plan
- continue to follow while admitted
- Restaging scans arranged outpatient
- treatment of pneumonia per primary team
- treatment of afib per cardiology
Oncology Addendum:
Patient seen and evaluated and agree w/ resident note and plan as outlined
-h/o esophageal cancer - followed by Dr. Wolfe
-outpt f/u w/ imaging as planned
--- NOTE | 2025-02-22 11:53 | W.PN.CARDCBS ---
Addendum entered and electronically signed by Kamran Colindres MD 02/22/25 13:12:
84-year-old man with stage III adenocarcinoma of the esophagus status post resection, with J-tube, has received chemotherapy, admitted with possible pneumonia, possibly an aspiration event followed by chest discomfort and new onset atrial
fibrillation. Now converted to sinus rhythm on amiodarone. Patient had converted to sinus rhythm yesterday, had some atrial fibrillation with reasonable rate today, now back in sinus rhythm. Eliquis has been started
PMH: Parkinson's, hypertension, history of hyponatremia, stage III adenocarcinoma of the esophagus, possible bilateral renal artery stenosis, degenerative disc disease, relative hypotension
Medications: Sinemet, Unasyn, amiodarone 200 3 times daily, apixaban 5 mg twice daily, metoprolol ER 25 mg just added
146/98, pulse 122 earlier now 80s, respirate now 20, afebrile, thin, lungs are clear, regular rate and rhythm occasional extrasystole JVD okay, not much edema abdomen J-tube
Hemoglobin 8.7, had been 7.5 platelets are 152, potassium 3.6, sodium 134, BUN/creatinine are 25 and 0.9
Plan:
Despite recurrent A-fib he looks reasonably well, and is now back in sinus rhythm.
Continue amiodarone, will add low-dose metoprolol.
Anemia is currently improved. Continue Eliquis.
No evidence of volume overload.
Blood pressure somewhat elevated. Will follow on metoprolol. May need restart of candesartan, possibly HCTZ but he has a history of hyponatremia.
Treatment of pneumonitis per primary team.
We will arrange for cardiology follow-up.
Original Note:
Today's Communication / Plan
-
Continue amiodarone 200 mg 3 times daily
Add Toprol 25 mg daily
Continue Eliquis
Continue treatment of pneumonia
Will arrange outpatient cardiac follow-up
Impression / Plan
-
Primary Engineering Mgr: Dr. Gutierrez
Assessment:
Presentation with CP, SOB
Pneumonitis, suspected secondary to bolus TFs
Atrial fibrillation with RVR, new diagnosis
Hypotension requiring pressors
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
Parkinson's disease
Hypertension
Hyponatremia
Concern for bilateral renal artery stenosis by CT abdomen and pelvis
DDD
Severe diverticulosis
Anemia
Echo 09/26/2023: EF 55%, mild MR, mild TR, PAP 20 to 25 mmHg, aortic root normal size, interatrial septum hypermobile and aneurysmal with no evidence of shunt
ECHO 02/19/25: Mild LVH, EF 57%, aortic sclerosis with trace aortic regurgitation, mild TR, pulmonary artery systolic pressures 37 atria and right heart are normal, mild mitral regurgitation
Plan:
- He presented with chest pain and shortness of breath and is being treated for pneumonitis in the setting of tube feed bolus, concern for aspiration.
- He was also in atrial fibrillation with RVR, new diagnosis. He was started on IV amiodarone and subsequently transition to p.o. amiodarone 200 mg 3 times daily. QT stable by EKG 02/21
- He spontaneously converted to sinus rhythm, however last night went back into A-fib, and converted back to sinus rhythm this morning around 7 AM. Has been maintaining sinus rhythm since that time.
- Blood pressure stable. Will add Toprol 25 mg daily to regimen
- Continue Eliquis, started this admission.
- Continue treatment of iron deficiency anemia per primary service and follow hemoglobin/platelets on anticoagulation
- Echocardiogram with preserved EF, and no significant valvular disease
- Holding outpatient candesartan/HCTZ
- Could consider eventual outpatient ischemic eval due to chest discomfort which has subsequently resolved. Tropes were negative
- PT/OT
- Will arrange outpatient cardiac follow-up
Progress Note - Engineering Mgr
Subjective
Date of Service: February 22, 2025
Denies chest pain, shortness of breath, palpitations
Objective
Labs:
02/22/25 04:26
02/22/25 04:26
Labs
Hgb 8.7 g/dL (13.0-18.0) L 02/22/25 04:26
Hct 25.8 % (39.0-52.0) L 02/22/25 04:26
Plt Count 152 10^3/uL (130-400) 02/22/25 04:26
APTT 83.8 Sec (23.4-35.0) H 02/21/25 11:55
Sodium 134 mmol/L (135-145) L 02/22/25 04:26
Potassium 3.6 mmol/L (3.5-5.1) 02/22/25 04:26
BUN 25 mg/dl (9-20) H 02/22/25 04:26
Creatinine 0.9 mg/dL (0.7-1.3) 02/22/25 04:26
Glucose 118 mg/dl (70-99) H 02/22/25 04:26
Troponins
02/19/25 02/19/25 02/20/25
16:06 20:35 03:47
Troponin I 0.013 < 0.012 < 0.012
Vital Signs and I&O:
Vital Signs
Temp Pulse Resp BP Pulse Ox
97.8 F 122 30 146/98 97
02/22/25 11:41 02/22/25 10:00 02/22/25 10:00 02/22/25 10:00 02/22/25 10:00
Vital Signs
Temp Pulse Resp BP Pulse Ox
97.8 F 122 30 146/98 97
02/22/25 11:41 02/22/25 10:00 02/22/25 10:00 02/22/25 10:00 02/22/25 10:00
Intake & Output
02/20/25 02/21/25 02/22/25 02/23/25
07:59 07:59 07:59 07:59
Intake Total 2180 / 2180 1820 / 1820 120 / 120
Output Total 900 / 900 1480 / 1480 1200 / 1200
Balance -900 / -900 700 / 700 620 / 620 120 / 120
Physical Exam
Physical Exam
GEN: No distress, awake, alert, oriented x3. Sitting in chair. Tube feeds running
HEENT: supple, anicteric, mmm, EOMI
LUNGS: CTA bilaterally, no wheezes/rales
CV: Reg, S1/S2, 1/6 syst LSB
ABD: soft, BS+, NT/ND
EXT: No cyanosis, clubbing, edema
NEURO: Gross non-focal
SKIN: Warm, pink, dry. No rash
[2025-02-22] MEDS: TOPROL XL 25 MG PO (13:11)
--- NOTE | 2025-02-22 16:39 | PTCARENOTE ---
Patient AOX3. Patient has flat affect and is drowsy, but wakes up to voice. B/L hand tremors. VSS. A fib with NSR on monitor. Jevity 1.5 running through PEG tube at goal of 65 mL/hr with a 25 mL/hr flush. Patient tolerating tube feed. Assist x2 with
RW when OOB. Q2 turns. Call castro within reach, bed in lowest position, and bed of wheels locked.
[2025-02-23] VITALS (13 sets, daily range): BP systolic 120–159; BP diastolic 61–84; PULSE 69; O2SAT 94; BMI 25.6
[2025-02-23] MEDS: UNASYN IV ×2 (03:43→10:33)
[2025-02-23 04:27] LABS: Hematocrit 25.7 % (39.0-52.0); Hemoglobin 8.6 g/dL (13.0-18.0); Mean Corp Hgb Conc. 33.5 g/dL (33.0-37.0); Mean Corpuscular Volume 93.8 fL (80.0-94.0); Nucleated Red Blood Cells % 0 % (-); Platelet Count 167 10^3/uL (130-400); Red Cell Dist. Width 21.2 % (11.5-14.5)
--- NOTE | 2025-02-23 04:31 | PTCARENOTE ---
at bedside at change of shift; updated on plan of care. No acute changes overnight. Patient has episodes of irregular rhythms; NSR w/ frequent PACs/PVCs versus Afib. Rate controlled. Denies any pain. Pt has been turned q2 hours, heels floated.
Foam placed to sacrum. RCW port dressing intact, lumen patent, +blood return. Tolerating TF via J-tube. Voiding via urinal. LBM 02/23. Call castro and tray table within reach. Pt calls appropriately for assistance.
[2025-02-23 04:49] LABS: Blood Urea Nitrogen 25 mg/dl (9-20); Calcium 8.3 mg/dl (8.4-10.2); Carbon Dioxide 22 mmol/L (22-30); Chloride 107 mmol/L (98-107); Estimated Creatinine Clearance 56 ml/min; Glucose 110 mg/dl (70-99); Magnesium 2.2 mg/dl (1.6-2.3); Potassium 3.9 mmol/L (3.5-5.1); Sodium 134 mmol/L (135-145); eGFR > 60.00
--- NOTE | 2025-02-23 08:02 | W.PN.HOSP.TC ---
Today's Communication/Plan
-
Discharge planning today
Assessment / Plan
Assessment / Plan
Physical exam:
General: chronically ill
HEENT: Normocephalic, Atraumatic and Moist Mucous Membranes
Respiratory: Clear to Auscultation; Negative Wheezes, Rales or Rhonchi. Port in place
Cardiac: Irregular rate and rhythm, and S1/S2
GI: Soft, Nontender and Nondistended. PEG in place
Musculoskeletal: No Clubbing, No Cyanosis and No Edema
Neuro: Awake, Alert and Oriented, no neurological deficit
Psych: Calm
A/P:
Sepsis due to aspiration pneumonia:
Change IV Unasyn to Augmentin through PEG
Off pressors
Off IV fluids
Tolerating tube feeding
Also discussed with relative who is a radiologist over the phone prior
Discussed with at bedside today
PT OT recommends home health
Discussed with pillowcase cleaner today-Home health ordered and filled out form for new feeding tube recommendations.
New onset A-fib:
Continue metoprolol succinate 25 mg p.o. daily
Oral amiodarone 200 mg 3 times daily--> would recommend to decrease to twice a day after 1 week.
Oral Eliquis 5 mg p.o. twice a day
Stage III adenocarcinoma of esophagus:
Oncology eval appreciated
Hyponatremia:
Improving
Hypertension:
Now that he is on beta-blockers we will continue holding rest of home antihypertensives-might not need to restart depending on how he does.
Parkinson's:
Continue carbidopa-levodopa
DVT prophylaxis:
Eliquis
CODE STATUS:
Full code
Anticipated Discharge: Today
Subjective/Interval History
-
Date of Service: February 23, 2025
Patient doing well. Afebrile. On room air
Objective Data
-
Labs:
Laboratory Results
02/23/25
03:43
WBC 6.8
Hgb 8.6 L
Hct 25.7 L
Plt Count 167
Sodium 134 L
Potassium 3.9
Chloride 107
Carbon Dioxide 22
BUN 25 H
Creatinine 0.9
Glucose 110 H
Calcium 8.3 L
Vital Signs:
Vital Signs
Temp Pulse Resp BP Pulse Ox
98.2 F 68 22 140/75 96
02/23/25 07:24 02/23/25 04:00 02/23/25 04:00 02/23/25 04:00 02/23/25 04:00
I&O
02/22/25 02/23/25 02/24/25
06:59 06:59 06:59
Intake Total 1820 / 1820 1440 / 1440
Output Total 1200 / 1200 950 / 950 225 / 225
Balance 620 / 620 490 / 490 -225 / -225
[2025-02-23] MEDS: ELIQUIS 5 MG TUBE (08:19)
[2025-02-23] MEDS: TOPROL XL 25 MG PO (08:19)
[2025-02-23] MEDS: PACERONE 200 MG PO (08:19)
[2025-02-23] MEDS: SINEMET 25-100 1.5 TABLET PO (08:20)
--- NOTE | 2025-02-23 12:17 | W.DCSUMMARY ---
Discharge Summary
Discharge Data
Date of Admission: 02/19/25
Date of Discharge: 02/23/25
Total time spent discharging patient (in min): 35
-
Pending Results: No
Hospital Course
Patient 84 years old male history of Parkinson's, hypertension, esophageal cancer, dysphagia with J-tube, presented to the hospital with aspiration pneumonia and A-fib new onset. Patient was given broad-spectrum antibiotics. Patient did well from
infection standpoint and his WBC trended down from 12 down to 6.8 and he has remained afebrile and oxygenating well on room air. He has new onset A-fib and he was started on amiodarone drip and subsequently switched to oral. He went into normal
rhythm but then went back into A-fib again and cardiology added beta-blockers to his regimen and after that his A-fib has been well-controlled. His echocardiogram unremarkable with a EF of 57% and mild valvulopathy. His ARB and HCTZ was
discontinued since his blood pressure was borderline low and can reevaluate as outpatient if needed to be restarted. Also he was restarted on his tube feedings without any problems and due to family preferences feeding tube were changed according
to dietitian to run for 16 hours times a day. Otherwise, patient is hemodynamically stable and afebrile and is going to be discharged in relatively stable condition today.
Discharge duration: 35 minutes
Discharge Plan
-
Patient Disposition: Home with Home Care
Discharge Diagnosis/Procedures: Aspiration pneumonia. Sepsis. New onset atrial fibrillation. Dysphagia. Esophageal cancer.
Diet: Other diet
Additional Diets: Nothing by mouth. Continue tube feedings-Jevity 1.5 at 85 mL/h for 16 hours with 50 mL flushes per hour.
Activity: As tolerated
Driving Restrictions: As prior to admission
Blood Work: Please PCP to order CBC, BMP within 1 week
Referrals:
speech therapy [Other] - in less than 1 week
Francisco Tesfaye MD [Family Provider, Internal Medicine] - in less than 1 week
Kamran Colindres MD [Active, Cardiology]
Referral Note: In 2 to 4 weeks, with one of our advanced practice professionals. We will call to set up appointment.
Prescriptions:
New
Eliquis 5 mg tablet
5 mg PO BID Qty: 60 0RF
metoprolol succinate 25 mg Tablet Extended Release 24 Hr
25 mg PO DAILY 30 Days Qty: 30 0RF
amoxicillin-pot clavulanate 875-125 mg Tablet
1 tab feeding tube BID 7 Days Qty: 14 0RF
amiodarone 200 mg tablet
200 mg feeding tube BID 28 Days Qty: 56 0RF
Rx Instructions:
After completed 4 weeks of treatment, continue with 200 mg of amiodarone once a day.
Continued
ondansetron HCl 4 mg tablet
4 mg PO Q8HPRN PRN (Reason: nausea/vomiting)
bisacodyl [Dulcolax (bisacodyl)] 5 mg Tablet,Delayed Release (Dr/Ec)
5 mg PO HS
Patient Comments:
02/19/2025, chewable tablet.
bisacodyl [Dulcolax (bisacodyl)] 5 mg Tablet,Delayed Release (Dr/Ec)
5 mg PO HSPRN PRN (Reason: constipation)
Patient Comments:
02/19/2025, chewable tablet.
carbidopa-levodopa 25-100 mg tablet
1.5 tab PO TID
Discontinued
candesartan-hydrochlorothiazid 32-12.5 mg tablet
1 tab PO DAILY
Discharge Orders:
Discharge Patient (As Directed); Ordered 02/23/25
Ordered By: Herb Fernandes
Discharge Date and Time
Discharge Date/Time: 02/23/25 16:25
Print Language: SAMMARINESE
--- NOTE | 2025-02-23 12:49 | W.PN.CARDCBS ---
Today's Communication / Plan
-
Okay for discharge
See below for recommendations
Impression / Plan
-
Primary Weatherstrip Machine Operator: Dr. Gutierrez
Assessment:
Presentation with CP, SOB
Pneumonitis, suspected secondary to bolus TFs
Atrial fibrillation with RVR, new diagnosis
Hypotension requiring pressors
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
Parkinson's disease
Hypertension
Hyponatremia
Concern for bilateral renal artery stenosis by CT abdomen and pelvis
DDD
Severe diverticulosis
Anemia
Echo 09/26/2023: EF 55%, mild MR, mild TR, PAP 20 to 25 mmHg, aortic root normal size, interatrial septum hypermobile and aneurysmal with no evidence of shunt
ECHO 02/19/25: Mild LVH, EF 57%, aortic sclerosis with trace aortic regurgitation, mild TR, pulmonary artery systolic pressures 37 atria and right heart are normal, mild mitral regurgitation
Plan:
Overall he looks well.
He has been in sinus rhythm for greater than 24 hours.
His hemoglobin is stable
No evidence of volume overload on exam
Recommended medications at discharge:
Amiodarone 200 mg twice daily for 4 weeks, then 200 mg a day,
Apixaban 5 mg twice daily,
Metoprolol ER 25 mg daily
We will arrange for cardiac follow-up
Okay for discharge from cardiac standpoint.
Progress Note - Weatherstrip Machine Operator
Subjective
Date of Service: February 23, 2025:
84-year-old man with stage III adenocarcinoma of the esophagus status post resection, with J-tube, has received chemotherapy, admitted with possible pneumonia, possibly an aspiration event followed by chest discomfort and new onset atrial
fibrillation. Now converted to sinus rhythm on amiodarone. Patient had converted to sinus rhythm yesterday, had some atrial fibrillation with reasonable rate today, now back in sinus rhythm. Eliquis has been started
PMH: Parkinson's, hypertension, history of hyponatremia, stage III adenocarcinoma of the esophagus, possible bilateral renal artery stenosis, degenerative disc disease, relative hypotension
Medications: Sinemet, Augmentin amiodarone 200 3 times daily, apixaban 5 mg twice daily, metoprolol ER 25 mg, albuterol, Dulcolax
Echo with mild MR, pulmonary artery systolic pressure 37 systolic pressure, aortic sclerosis, trace MR February 2025
132/72, pulse 68, respiratory rate 19, afebrile, weight is 74.1 kg, if accurate up 5.6 kg since February 20, looks comfortable, head neck exam unremarkable, lungs are clear, regular rate and rhythm, trace to 1+ edema
Hemoglobin 8.6, stable BUN/creatinine 25 and 0.9, potassium 3.9, magnesium 2.2
Telemetry: No further A-fib, PVCs
Objective
Labs:
02/23/25 03:43
02/23/25 03:43
Labs
Hgb 8.6 g/dL (13.0-18.0) L 02/23/25 03:43
Hct 25.7 % (39.0-52.0) L 02/23/25 03:43
Plt Count 167 10^3/uL (130-400) 02/23/25 03:43
APTT 83.8 Sec (23.4-35.0) H 02/21/25 11:55
Sodium 134 mmol/L (135-145) L 02/23/25 03:43
Potassium 3.9 mmol/L (3.5-5.1) 02/23/25 03:43
BUN 25 mg/dl (9-20) H 02/23/25 03:43
Creatinine 0.9 mg/dL (0.7-1.3) 02/23/25 03:43
Glucose 110 mg/dl (70-99) H 02/23/25 03:43
Vital Signs and I&O:
Vital Signs
Temp Pulse Resp BP Pulse Ox
36.8 C 66 23 133/70 97
02/23/25 07:24 02/23/25 12:00 02/23/25 12:00 02/23/25 12:00 02/23/25 12:00
Vital Signs
Temp Pulse Resp BP Pulse Ox
36.8 C 66 23 133/70 97
02/23/25 07:24 02/23/25 12:00 02/23/25 12:00 02/23/25 12:00 02/23/25 12:00
Intake & Output
02/21/25 02/22/25 02/23/25 02/24/25
07:59 07:59 07:59 07:59
Intake Total 2180 / 2180 1820 / 1820 1440 / 1440
Output Total 1480 / 1480 1200 / 1200 1175 / 1175
Balance 700 / 700 620 / 620 265 / 265
Physical Exam
Physical Exam
See above
[2025-02-23] MEDS: AUGMENTIN 875 MG/125 MG 1 TABLET PO (14:21)
--- NOTE | 2025-02-23 15:49 | PTCARENOTE ---
pt w/ numerous questions asking to speak with AMEE and Dr. Fernandes, Dr. Fernandes spoke with on the phone, CM updated on pt needing speech eval via VN. Valentine LUBIN spoke with [facility] and per her it will be added on to what will be done by them. Updated
pt and on care. Pt understanding of all discharge instructions. D/C to home with .
--- NOTE | 2025-02-23 16:08 | CM ---
Addendum entered by Lurdes Snow RN 02/23/25 16:26:
Per XIOMARA Barcenas: I have him scheduled with nurse on 02/24/25.
Original Note:
Patient with Hx esophageal cancer on chemo/radiation, J-Tube placement 12/19, Parkinson's Disease with Dx Sepsis due to aspiration pneumonia. Room air. Jevity tube feeds. PT/OT recommend HH.
Spoke with Wendy Martinez; provided script for Jevity feeds over 16 hrs with water flushes, on Home Enteral Prescriber Form, as completed by Dr Fernandes. Michelle confirms that they will deliver to home on 02/25. Pump already in place at
patient's home.
Met with patient and spoke with Shu by phone; both agree to d/c home today. IMM completed.
Patient and are both informed that [facility] will deliver more Jevity on 02/23.
Patient & confirm there is adequate Jevity at home to last until delivery by [facility] on Tue.
Request to to review enteral feed instructions with nurse prior to d/c and she agreed.
Patient/ aware [facility] will resume service. asked nurse if Speech Therapy can be added- agreed to make request to VN, although patient not seen by while here - ON [facility] will evaluate and decide.
plans on transporting patient home via her vehicle.
Spoke with XOIMARA Barcenas Liaison re; resumption of service and 's request for - [facility] will evaluate and decide.
Plan home today with [facility] for Enteral feedings, with resumption [facility].
== END 2025-02-23 16:25 | disposition home health service (06) | DRG 871 ==
LOC: IMU 22:20
PROVIDERS: Emergency Medicine; Internal Medicine; Nurse Practitioner Family; Physician Assistant; ADMITTING PHYSICIAN Internal Medicine; ATTENDING PHYSICIAN Hospitalist; EMERGENCY PHYSICIAN Emergency Medicine; FAMILY PHYSICIAN Internal Medicine; OTHER PHYSICIAN Internal Medicine Hematology & Oncology; OTHER PHYSICIAN Nuclear Medicine Nuclear Cardiology
DX: A41.9 Sepsis, unspecified organism (principal); J18.9 Pneumonia, unspecified organism; J69.0 Pneumonitis due to inhalation of food and vomit; R65.21 Severe sepsis with septic shock; C15.9 Malignant neoplasm of esophagus, unspecified; E87.1 Hypo-osmolality and hyponatremia; J98.11 Atelectasis; I31.39 Other pericardial effusion (noninflammatory); I48.91 Unspecified atrial fibrillation; I95.9 Hypotension, unspecified; I11.9 Hypertensive heart disease without heart failure; G20.A1 Parkinson's disease without dyskinesia, without mention of fluctuations; K59.00 Constipation, unspecified; K57.30 Diverticulosis of large intestine without perforation or abscess without bleeding; D50.9 Iron deficiency anemia, unspecified; R13.10 Dysphagia, unspecified; I49.3 Ventricular premature depolarization; K21.9 Gastro-esophageal reflux disease without esophagitis; Z92.21 Personal history of antineoplastic chemotherapy; Z92.3 Personal history of irradiation; Z93.4 Other artificial openings of gastrointestinal tract status; Z85.820 Personal history of malignant melanoma of skin; Z85.46 Personal history of malignant neoplasm of prostate; Z80.52 Family history of malignant neoplasm of bladder; Z82.0 Family history of epilepsy and other diseases of the nervous system
CPT/HCPCS: 36415; 71275; 74177; 80048; 80053; 81003; 81015; 82728; 83540; 83550; 83605; 83690; 83735; 83880; 84443; 84484; 85025; 85027; 85730; 87040; 87150; 87205; 93005; 93306; 96361; 96374; 97116; 97163; 97167; 97530; 99285; Q9967

== ENCOUNTER → 2025-02-27 09:33 | Outpatient (REF) | payer MEDICARE, OTHER, SELFPAY ==
[2025-02-27 10:47] LABS: Hematocrit 27.7 % (39.0-52.0); Hemoglobin 8.9 g/dL (13.0-18.0); Mean Corp Hgb Conc. 32.1 g/dL (33.0-37.0); Mean Corpuscular Volume 96.5 fL (80.0-94.0); Nucleated Red Blood Cells % 0 % (-); Platelet Count 190 10^3/uL (130-400); Red Cell Dist. Width 20.9 % (11.5-14.5)
[2025-02-27 12:59] LABS: ALT (SGPT) < 10 U/L (0-50); AST (SGOT) 24 U/L (17-59); Albumin 3.1 g/dl (3.5-5.0); Alkaline Phosphatase 86 U/L (38-126); Blood Urea Nitrogen 21 mg/dl (9-20); Calcium 8.8 mg/dl (8.4-10.2); Carbon Dioxide 22 mmol/L (22-30); Chloride 104 mmol/L (98-107); Glucose 86 mg/dl (70-99); Potassium 4.4 mmol/L (3.5-5.1); Sodium 132 mmol/L (135-145); Total Protein 5.9 g/dl (6.3-8.2); eGFR > 60.00
== END ==
LOC: REG 09:33
PROVIDERS: ATTENDING PHYSICIAN Internal Medicine Hematology & Oncology; OTHER PHYSICIAN Hospitalist; OTHER PHYSICIAN Internal Medicine
DX: C15.8 Malignant neoplasm of overlapping sites of esophagus (principal)
CPT/HCPCS: 36415; 80053; 85025

== ENCOUNTER → 2025-03-05 09:59 | Outpatient (REF) | payer MEDICARE, OTHER, SELFPAY | LOC: REG 09:59 | PROVIDERS: ATTENDING PHYSICIAN Internal Medicine | DX: K52.1 Toxic gastroenteritis and colitis (principal); T36.95XA Adverse effect of unspecified systemic antibiotic, initial encounter | CPT/HCPCS: 87324; 87449 ==

== ENCOUNTER → 2025-03-06 08:45 | Outpatient (REF) | payer MEDICARE, OTHER, SELFPAY ==
[2025-03-06 09:51] LABS: Hematocrit 29.7 % (39.0-52.0); Hemoglobin 9.7 g/dL (13.0-18.0); Mean Corp Hgb Conc. 32.7 g/dL (33.0-37.0); Mean Corpuscular Volume 95.8 fL (80.0-94.0); Nucleated Red Blood Cells % 0 % (-); Platelet Count 211 10^3/uL (130-400); Red Cell Dist. Width 19.5 % (11.5-14.5)
[2025-03-06 12:04] LABS: Albumin 3.7 g/dl (3.5-5.0); Blood Urea Nitrogen 24 mg/dl (9-20); Calcium 9.1 mg/dl (8.4-10.2); Carbon Dioxide 27 mmol/L (22-30); Chloride 99 mmol/L (98-107); Glucose 103 mg/dl (70-99); Iron 70 ug/dl (49-181); Potassium 4.4 mmol/L (3.5-5.1); Sodium 132 mmol/L (135-145); eGFR > 60.00
[2025-03-06 12:13] LABS: PSA, Total - Diagnostic 6.72 ng/ml (0.0-4.0); Total Iron Binding Capacity 356 ug/dl (261-462)
[2025-03-06 12:17] LABS: Ferritin 197.0 ng/ml (17.9-464.0)
== END ==
LOC: RST 08:45
PROVIDERS: ATTENDING PHYSICIAN Internal Medicine; FAMILY PHYSICIAN Internal Medicine Hematology & Oncology; REFERRING PHYSICIAN Specialist
DX: K22.4 Dyskinesia of esophagus (principal); C15.9 Malignant neoplasm of esophagus, unspecified; C15.8 Malignant neoplasm of overlapping sites of esophagus; D53.9 Nutritional anemia, unspecified; C61 Malignant neoplasm of prostate; R13.11 Dysphagia, oral phase
CPT/HCPCS: 36415; 74230; 80069; 82728; 83540; 83550; 84153; 85025; 92611

== ENCOUNTER → 2025-03-11 12:22 | Outpatient (REF) | payer MEDICARE, OTHER, SELFPAY ==
[2025-03-11 13:46] LABS: Hematocrit 30.4 % (39.0-52.0); Hemoglobin 9.6 g/dL (13.0-18.0); Mean Corp Hgb Conc. 31.6 g/dL (33.0-37.0); Mean Corpuscular Volume 97.4 fL (80.0-94.0); Nucleated Red Blood Cells % 0 % (-); Platelet Count 219 10^3/uL (130-400); Red Cell Dist. Width 18.8 % (11.5-14.5)
[2025-03-11 14:49] LABS: Blood Urea Nitrogen 31 mg/dl (9-20); Calcium 9.2 mg/dl (8.4-10.2); Carbon Dioxide 27 mmol/L (22-30); Chloride 99 mmol/L (98-107); Glucose 86 mg/dl (70-99); Iron 53 ug/dl (49-181); Potassium 4.3 mmol/L (3.5-5.1); Sodium 131 mmol/L (135-145); eGFR > 60.00
[2025-03-11 14:58] LABS: Total Iron Binding Capacity 336 ug/dl (261-462)
[2025-03-11 15:40] LABS: Ferritin 158.0 ng/ml (17.9-464.0)
== END ==
LOC: REG 12:22
PROVIDERS: ATTENDING PHYSICIAN Internal Medicine Hematology & Oncology; FAMILY PHYSICIAN Internal Medicine
DX: C15.8 Malignant neoplasm of overlapping sites of esophagus (principal); D53.9 Nutritional anemia, unspecified
CPT/HCPCS: 36415; 80048; 82728; 83540; 83550; 85025

== ENCOUNTER 2025-03-15 19:39 | Inpatient (IN) | payer MEDICARE, OTHER, SELFPAY ==
[2025-03-15] VITALS (7 sets, daily range): BP systolic 97–141; BP diastolic 45–67; BMI 22.9
--- NOTE | 2025-03-15 12:12 | ED.GENMED ---
History of Present Illness
General
Chief Complaint: Breathing Problem
Source: patient and spouse
Exam Limitations: none
Time Seen by Provider: 03/15/25 12:06
Nursing documentation reviewed up to this point in time: agreed with
History of Present Illness
History of Present Illness:
Patient is 84-year-old male with past medical history of esophageal adenocarcinoma(completed chemo January 31 and radiation February 06, reflux, hypertension A-fib on Eliquis, aspiration pneumonia, J-tube (patient now weaning off of J tube and does eat
)does presents to the ER for evaluation. Patient started with chest pain and shortness of breath around 3 AM. He does complain of pain with deep breath but reports pain is constant. He has no history of CAD. also reports he did have a fever
as high as 100.2. He however does not feel chills. He has a chronic cough.
Patient has not missed a dose of his Eliquis
Past History
Past History
ED Past Medical History: Cancer (Esophageal), GERD and HTN
ED Past Surgical History: Appendectomy, Tonsilectomy and Other (J-tube. Mohs surgery. Subcutaneous port)
Phy Exam
General Physical Exam
General Presentation: no apparent distress
General age: appears stated age
General Skin: warm and dry
General Habitus: elderly
General Mental: alert
General Hydration: dry mucous membranes
Cardiovascular Exam
Cardiovascular Exam: bradycardia
Pulmonary Exam
Pulmonary Exam: lungs clear and no respiratory distress
Neurological Exam
Neurological Exam: alert and oriented x3
Musculoskeletal Exam
Musculoskeletal Exam: full ROM
Skin Exam
Skin Exam: normal color and warm/dry
Psychiatric Exam
Psychiatric Exam: normal mood/affect
Scores
Heart Failure Risk
Heart Failure Risk Score: Not Applicable
Course
Orders/Labs/Results
Orders:
Orders
03/15/25 10:44
EKG [Electrocardiogram (*1)] Urgent
Reason for Study: Chest Pain
EKG- Treatment ONCE
03/15/25 11:58
Cardiac Monitoring- Treatment ONCE
IV Insert/Care/Rem.- Treatment PRN
O2 Therapy [RESP] Urgent
Titrate/Wean O2 to maintain O2 sat greater than (%): 90
Special Instructions: Maintain sats >/=90%
Pulse Ox/spot Check [RESP] Urgent
Quantity: 1
Special Instructions: ON ROOM AIR
03/15/25 12:29
Complete Blood Count/With Diff Urgent
Troponin I Urgent
03/15/25 12:30
Comprehensive Metabolic Panel Urgent
03/15/25 12:36
Chest [CR Chest - 2 Views ] Urgent
Comment:
Reason For Exam: cp/sob
03/15/25 12:45
Heparin Pf [Heparin Lock Flush] 500 unit IV PER PROTOCOL
03/15/25 14:59
Electrocardiogram (*1) Stat
Reason for Study: Other
Other Reason for Exam: chest pain
EKG- Treatment ONCE
03/15/25 15:09
CT Chest PE Study Urgent
Comment:
Reason For Exam: cp pain with deep breath /fever
03/15/25 15:19
0.9% Sodium Chloride 500 ml [Nss] 500 ml IV BOLUS
03/15/25 15:25
Troponin I Urgent
Abnormal Lab Results
03/15/25 03/15/25
12:29 12:30
WBC 11.3 H 10^3/uL
(4.8-10.8)
RBC 3.21 L 10^6/uL
(4.70-6.10)
Hgb 10.0 L g/dL
(13.0-18.0)
Hct 30.9 L %
(39.0-52.0)
MCV 96.3 H fL
(80.0-94.0)
MCH 31.2 H pg
(27.0-31.0)
MCHC 32.4 L g/dL
(33.0-37.0)
RDW 18.3 H %
(11.5-14.5)
Abs Immat Gran (auto) 0.1 H 10^3/uL
(0-0.05)
Absolute Neuts (auto) 9.2 H 10^3/uL
(1.4-6.5)
Absolute Lymphs (auto) 0.4 L 10^3/uL
(1.2-3.4)
Absolute Monos (auto) 1.6 H 10^3/uL
(0.1-0.6)
Neutrophils % 81.4 H %
(42.2-75.2)
Lymphocytes % 3.8 L %
(20.5-51.1)
Monocytes % 13.8 H %
(1.7-9.3)
Sodium 128 L mmol/L
(135-145)
Potassium 5.3 H mmol/L
(3.5-5.1)
BUN 32 H mg/dl
(9-20)
Creatinine 1.6 H mg/dL
(0.7-1.3)
Glucose 177 H mg/dl
(70-99)
AST 66 H U/L
(17-59)
Alkaline Phosphatase 140 H U/L
(38-126)
03/15/25 12:29
03/15/25 12:30
Vital Signs
Initial and Last Documented VS:
Initial Vital Signs
Temp Pulse Resp BP Pulse Ox
97.4 F 53 16 97/67 97
03/15/25 10:41 03/15/25 10:41 03/15/25 10:41 03/15/25 10:41 03/15/25 10:41
Last Documented Vital Signs
Temp Pulse Resp BP Pulse Ox
97.4 F 49 33 97/45 95
03/15/25 10:41 03/15/25 16:00 03/15/25 16:00 03/15/25 16:00 03/15/25 16:00
Storage Engineer consulted with Physician
Storage Engineer consulted with physician?: Yes
Name of Physician Consulted: idania
MDM/Problems Addressed
Differential Diagnosis Includes:
Not limited to pneumonia, ACS less likely PE as he is anticoagulated
MDM/Problems Addressed:
Patient is a 84-year-old male with history of esophageal cancer completed chemoradiation presents with anterior chest pain mild shortness of breath pain with deep breath since 3 AM. reported low-grade fever. He denies any shortness of breath
now but does have some pain with deep breath. Lungs clear. He is not hypoxic his heart rate is low in the high 40s and he typically reports his heart rates in the 50s to 60s. X-ray read radiology shows bilateral pleural effusions. With low-grade
fever pain with deep breath, he is anticoagulated and low risk of PE however will order PE study to further evaluate lungs findings . trop is 0.012. Will repeat second Trop. Patient is dehydrated with a BUN of 32 creatinine of 1.6 low sodium of
128 potassium 5.3. With renal insufficiency small fluid bolus given. Patient does have a J-tube however they are weaning patient off of J-tube he does currently drink and eat and did have breakfast this morning.
Will admit for chest pain hyponatremia.
CT chest currently pending at this time.
1824:CT neg for pe
Chronic conditions affecting care:
A-fib on Eliquis, esophageal cancer
*Radiology
Radiology exam reviewed: radiology read reviewed
*Pulse Oximetry
SaO2: 97
Oxygen Mode of Delivery: Room air
Patient hypoxic: no
*EKG
Interpreted by ED Provider?: Yes
Comparison EKG: no changes
Heart Rate: 51
Rate: bradycardiac
Rhythm: sinus
Ischemia: non-specific ST changes
*Critical Care Note
Total Time (30-74mins, 75-104mins- exclusive of procedures): Not Applicable
ED Attending Note
-
Portions of this chart may have been created with voice recognition software.� Occasional wrong word or��sound alike� substitutions may have occurred due to the inherent limitations of voice recognition software.
Discharge Plan
Departure
Patient Disposition: Admit
Date of Disposition: 03/15/25
Time of Disposition: 15:18
Admit to: Telemetry
Admit to doctor: hospitalist
Presentation/result/management discussed w/ accepting MD/DO: Hospitalist
Patient with high blood pressure during this ER visit?: No
Condition: Fair
Covid-19: Not Applicable
Discharge Problem:
Chest pain, Acute hyponatremia, Acute renal insufficiency
Prescriptions:
No Action
carbidopa-levodopa 25-100 mg tablet
1.5 tab PO TID
Eliquis 5 mg tablet
5 mg PO BID Qty: 60 0RF
metoprolol succinate 25 mg Tablet Extended Release 24 Hr
25 mg PO DAILY 30 Days Qty: 30 0RF
amiodarone 200 mg tablet
200 mg PO BID
Rx Instructions:
After completed 4 weeks of treatment, continue with 200 mg of amiodarone once a day.
Referrals:
Francisco Tesfaye MD [Family Provider, Internal Medicine]
Interventions
Interventions:
*Risk Screen - Suicide Last Done: 03/15/25 10:41
*General Assessment Last Done: 03/15/25 10:41
*Neglect/Abuse Screening Last Done: 03/15/25 10:41
*ED COVID-19 Vaccine History Last Done: 03/15/25 10:41
ED- Cardiac Assessment Last Done: 03/15/25 16:16
ED- Pulmonary Assessment Last Done: 03/15/25 16:16
Discharge Date and Time
Print Language: EGYPTIAN
[2025-03-15 12:35] LABS: Hematocrit 30.9 % (39.0-52.0); Hemoglobin 10.0 g/dL (13.0-18.0); Mean Corp Hgb Conc. 32.4 g/dL (33.0-37.0); Mean Corpuscular Volume 96.3 fL (80.0-94.0); Nucleated Red Blood Cells % 0 % (-); Platelet Count 204 10^3/uL (130-400); Red Cell Dist. Width 18.3 % (11.5-14.5)
[2025-03-15 12:59] LABS: ALT (SGPT) 26 U/L (0-50); AST (SGOT) 66 U/L (17-59); Albumin 3.6 g/dl (3.5-5.0); Alkaline Phosphatase 140 U/L (38-126); Blood Urea Nitrogen 32 mg/dl (9-20); Calcium 9.1 mg/dl (8.4-10.2); Carbon Dioxide 23 mmol/L (22-30); Chloride 98 mmol/L (98-107); Glucose 177 mg/dl (70-99); Potassium 5.3 mmol/L (3.5-5.1); Sodium 128 mmol/L (135-145); Total Protein 6.4 g/dl (6.3-8.2); eGFR 41.96
[2025-03-15 13:10] LABS: Troponin I 0.012 ng/ml
[2025-03-15 16:01] LABS: Troponin I 0.012 ng/ml
[2025-03-15] MEDS: NSS 500 IV (18:03)
--- NOTE | 2025-03-15 18:27 | HPS.HSE ---
Family Physician
-
Family Physician: Francisco Tesfaye
Chief Complaint
-
Chest pain
History of Present Illness
84-year-old male with past medical history of:
esophageal adenocarcinoma(completed chemo January 31 and radiation February 06),
reflux,
hypertension
A-fib on Eliquis,
aspiration pneumonia,
J-tube (patient now weaning off of J tube and does eat )
presents with chest pain and shortness of breath around 3 AM. He complains of pain with deep breath but reports pain is constant. He has no history of CAD. also reports he did have a fever as high as 100.2. He however does not feel chills.
He has a chronic cough. Patient has not missed a dose of his Eliquis. At the time of my exam he felt warm, and was otherwise comfortable.
Medical History
Past Medical History
Past Medical History: Reports Other
Additional Past Medical History:
Cancer (Esophageal),
GERD
Essential HTN
Appendectomy,
Tonsilectomy
J-tube
Mohs surgery
Subcutaneous port
Parkinson's Disease
Prostate cancer
Chronic cough
Hyponatremia
Hernia - both sides 2020
squamous cell procedures
melanoma on neck
OD cataract 09/28/23
OS cataract 10/26/23
robotic j-tube placement ([facility]) 12/2024
ER Chest pain 10/2024
PM-DH stay. Discharge DX: Aspiration pneumonia. Sepsis. New Onset A fib. Dysphagia. Esophageal cancer. 02/19-02/23/25
Past Surgical History: Reports Other
Additional Past Surgical History:
See above
Social History
Tobacco: Non-smoker
Alcohol: None
Drug: None
Personal:
Living: With Family
Employment: Retired
Family History
Family History: Not pertinent
Allergies / Home Medications
Allergies reflects when Allergies were last updated in [facility].
Home Medications with original date entered in [facility]
Allergy/Medication List:
Allergies
Allergy/AdvReac Type Severity Reaction Status Date / Time
No Known Allergies Allergy Verified 03/15/25 10:43
Home Medications
carbidopa 25 mg-levodopa 100 mg tablet 1.5 tab PO TID PARKINSON 02/19/25
apixaban 5 mg tablet (Eliquis) 5 mg PO BID #60 tabs 02/20/25
metoprolol succinate 25 mg tablet,extended release 24 hr 25 mg PO DAILY 30 days #30 tabs 02/23/25
amiodarone 200 mg tablet 200 mg PO BID 03/15/25
Review of Systems
-
History Source: Patient
A 12 point ROS was completed and negative except as noted: Yes
Cardiac: Reports Chest Pain
Physical Exam
Vital Signs
Vital Signs
Temp Pulse Resp BP Pulse Ox
97.4 F 49 33 97/45 95
03/15/25 10:41 03/15/25 16:00 03/15/25 16:00 03/15/25 16:00 03/15/25 16:00
Physical Exam
General: Well Developed, Well Nourished, No Apparent Distress, Comfortable and Conversant
HEENT: No Ptosis, Nose Appears Normal and Ears Appear Normal
Respiratory: Rales, Rhonchi and Decreased Breath Sounds
Cardiac: S1/S2 and Regular Rhythm
GI: Soft, Non Tender and Non Distended
Musculoskeletal: No Clubbing, No Cyanosis and No Edema
Skin: Warm and Dry
Neuro: Awake, Alert, Oriented and AO x 3
Psych: Calm
Laboratory Results
-
03/15/25 12:29
03/15/25 12:30
Laboratory Results
Total Bilirubin 0.6 mg/dl (0.2-1.3) 03/15/25 12:30
AST 66 U/L (17-59) H 03/15/25 12:30
ALT 26 U/L (0-50) 03/15/25 12:30
Alkaline Phosphatase 140 U/L (38-126) H 03/15/25 12:30
Troponin I 0.012 ng/ml 03/15/25 15:25
Data Reviewed
-
Lab Data: Labs Reviewed by me
Impression/Plan
-
IMPRESSION:
84 man with chest pain (worse with deep breathing), subjective fever, and the following:
BP 97/45
WBC 11.3
BUN/Creat 32/1.6
H/H 10.0/30.9
NA 128
K 5.3
CXR: Bilateral effusions
CT:
Examination is negative for pulmonary embolism.
Bilateral pleural effusions, left greater than right, increasing from prior CT examination.
Compressive atelectasis in the posterior lower lobes of both lungs.
Patchy ground-glass opacity involving the left upper lobe, inferior right upper lobe, and posterior aspect of the right middle lobe.
Main differential considerations of pneumonia and pulmonary edema
Minimal pericardial effusion.
There appears to be ascites in the left upper quadrant adjacent to the spleen, which appears to be new since previous examination.
PLAN:
1. Fever, elevated WBC, chest pain with breathing, new lung findings as described above in the CT - possible PNA with SIRS
Check Pro-josr
Check BNP
Repeat CXR in am
Give empiric antibiotics given overall probability of PNA (for hosp acquired PNA)
Give IV fluids given soft BP and dry kidneys, and low Na
Check blood cultures
Check sputum cultures
Check for Flu and Covid
2. Chest pain with risk factors for CAD
MICHAEL
Tele
3. Low Na - likely hypovolemic hyponatremia
Saline
Recheck in am
4. K of 5.3 - likely from dehydration / ZACH
Saline
Recheck in am
Check magnesium
5. BUN/Creat of 32/1.6, baseline creat ~ 1.1 - Likely pre-renal
Saline
Recheck in am
6. Other important PMH to be aware of and consider during his stay:
Cancer (Esophageal),
GERD
Essential HTN
S/P Appendectomy,
S/P Tonsilectomy
J-tube
S/P Mohs surgery
Subcutaneous port
Parkinson's Disease
Prostate cancer
Chronic cough
Hyponatremia
Hernia - both sides 2020
squamous cell procedures
melanoma on neck
OD cataract 09/28/23
OS cataract 10/26/23
robotic j-tube placement ([facility]) 12/2024
ER Chest pain 10/2024
PM- stay. Discharge DX: Aspiration pneumonia. Sepsis. New Onset A fib. Dysphagia. Esophageal cancer. 02/19-02/23/25
Full code
VCD for DVTp
[2025-03-15] MEDS: NSS 1000 IV (20:14)
--- NOTE | 2025-03-15 20:15 | PTCARENOTE ---
Pt arrived to 3 [address] from ED via stretcher. Pt weak, pulled over into bed [id number] with staff assistance. AAOx3, oriented to room, call castro within reach. Care ongoing.
[2025-03-15] MEDS: STERILE WATER FOR INJECTION 10 ML IV (20:18)
[2025-03-15] MEDS: VIBRAMYCIN 100 MG PO (20:18)
[2025-03-15] MEDS: ROCEPHIN 1000 MG IV (20:18)
[2025-03-15] MEDS: ELIQUIS 5 MG PO (20:18)
[2025-03-15] MEDS: PACERONE 200 MG PO (20:18)
[2025-03-15] MEDS: SINEMET 25-100 1.5 TABLET PO (21:07)
[2025-03-15 21:38] LABS: COVID-19 Antigen Negative (Negative)
[2025-03-15 22:04] LABS: Troponin I 0.023 ng/ml
[2025-03-15 22:11] LABS: Procalcitonin 0.45 ng/ml (0.0-0.25)
[2025-03-16 03:08] LABS: Troponin I 0.025 ng/ml
[2025-03-16 03:30] VITALS: BP 127/64
[2025-03-16] MEDS: NSS 1000 IV (04:16)
[2025-03-16 06:51] LABS: Hematocrit 27.3 % (39.0-52.0); Hemoglobin 9.0 g/dL (13.0-18.0); Mean Corp Hgb Conc. 33.0 g/dL (33.0-37.0); Mean Corpuscular Volume 94.8 fL (80.0-94.0); Platelet Count 178 10^3/uL (130-400); Red Cell Dist. Width 18.1 % (11.5-14.5)
[2025-03-16 07:04] LABS: Blood Urea Nitrogen 39 mg/dl (9-20); Calcium 8.8 mg/dl (8.4-10.2); Carbon Dioxide 23 mmol/L (22-30); Chloride 103 mmol/L (98-107); Estimated Creatinine Clearance 29 ml/min; Glucose 95 mg/dl (70-99); Potassium 4.9 mmol/L (3.5-5.1); Sodium 132 mmol/L (135-145); eGFR 36.43
[2025-03-16 07:15] VITALS: BP 127/67
[2025-03-16] MEDS: VIBRAMYCIN 100 MG PO ×2 (08:21→21:13)
[2025-03-16] MEDS: TOPROL XL 25 MG PO (08:22)
[2025-03-16] MEDS: ELIQUIS 5 MG PO ×2 (08:22→21:13)
[2025-03-16] MEDS: PACERONE 200 MG PO ×2 (08:22→21:14)
[2025-03-16] MEDS: SINEMET 25-100 1.5 TABLET PO ×3 (08:25→21:13)
--- NOTE | 2025-03-16 11:10 | W.PN.HOSP.TC ---
Today's Communication/Plan
-
Check ultrasound chest. If positive will ask [facility] for thoracentesis
Check urine studies
Nephrology input
Modified diet
Trend BMP
Continue antibiotics for now
Assessment / Plan
Assessment / Plan
#Shortness of breath likely multifactorial due to pulmonary edema versus pneumonia versus pleural effusion
Procalcitonin mildly elevated. However in the setting of elevated creatinine
Continue with IV broad-spectrum antibiotics for now
CT chest were negative for pulmonary embolism. Showed pleural effusion the right side however x-ray this morning with mild. Will check chest ultrasound. If positive ask [facility] for thoracentesis
Currently stable on room air
Troponin were checked and found to be negative
COVID and influenza found to be negative
Sputum culture pending
Leukocytosis resolved. Trend WBC and fever curve
#Acute kidney injury possibly
Did receive IV contrast yesterday. Possibly too early for ATN picture
Check urine studies
Bladder scan protocol
Creatinine bumped to 1.8
Avoid nephrotoxin.
Start further fluids. Lactic acid normal. proBNP elevated.
Will ask nephrology for further input
#Mild hyponatremia
Na improved
#Parkinson's disease
Continue with carbidopa levodopa home regimen
#Paroxysmal atrial fibrillation
Continue with amiodarone 200 mg twice daily For 4 weeks upon last admission cardiology note from 02/23
Cont metoprolol and Eliquis
Monitor on telemetry
Recent ECHO-ECHO 02/19/25: Mild LVH, EF 57%, aortic sclerosis with trace aortic regurgitation, mild TR, pulmonary artery systolic pressures 37 atria and right heart are normal, mild mitral regurgitation
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
Stated completed chemo and radiation for throat
Due to get PET scan
Continue to follow-up with oncology as outpatient
#Dysphagia
Recent speech evaluation with soft and bite-size diet
# Normocytic anemia likely secondary to chemotherapy
Continue to monitor hemoglobin. Transfuse for hemoglobin less than 7.
DVT ppx-eliquis
Full code
d/w with spouse at bedside in details
Anticipated Discharge: > 48 hours
Subjective/Interval History
-
Date of Service: March 16, 2025
on room air
underwent CXR earlier today
feeling mildly better today
states of LE edema
Objective Data
-
Labs:
Laboratory Results
03/16/25
06:20
WBC 8.0
Hgb 9.0 L
Hct 27.3 L
Plt Count 178
Sodium 132 L
Potassium 4.9
Chloride 103
Carbon Dioxide 23
BUN 39 H
Creatinine 1.8 H
Glucose 95
Calcium 8.8
Vital Signs:
Vital Signs
Temp Pulse Resp BP Pulse Ox
98.2 F 69 18 127/67 95
03/16/25 07:15 03/16/25 07:15 03/16/25 07:15 03/16/25 07:15 03/16/25 07:15
I&O
03/15/25 03/16/25 03/17/25
06:59 06:59 06:59
Output Total 200 / 200
Balance -200 / -200
Physical Exam
-
General: Well Developed and No Apparent Distress
HEENT: Normocephalic, Atraumatic and Moist Mucous Membranes
Respiratory: Clear to Auscultation and Other (port R chest wall noted )
Cardiac: Regular Rhythm and S1/S2; Negative Murmur, Rub or Gallop
GI: Soft, Nontender, Nondistended, Normal Bowel Sounds and Peg Tube; Negative Organomegaly
Rectal: Deferred by Provider
Musculoskeletal: No Clubbing, No Cyanosis and No Edema
Skin: Negative Rash
Neuro: Awake and Nonfocal/Grossly Intact
Psych: Calm
Data Reviewed
-
Total Time Spent with Patient (in minutes): 55
[2025-03-16 11:30] VITALS: BP 128/63
[2025-03-16 14:28] LABS: Urine Character Clear (Clear)
[2025-03-16 14:44] LABS: Urine Red Blood Cell 0-2 /HPF (0-2); Urine White Cell 0-2 /HPF (0-5)
[2025-03-16 16:00] VITALS: BP 126/56
--- NOTE | 2025-03-16 16:07 | W.CON.NEPH ---
Consultation
-
Date/Time Consultation Requested: 03/16/25 1107
Date/Time Consultation Performed: 03/16/25 1620
Requesting Provider: Mohit Shelley
Performing Provider: Mary Dean
Reason for Consultation: Adele
Medical History
-
Chief Complaint: CP
History of Present Illness:
This is 84-year-old male who has history of Parkinson's disease on Sinemet, hypertension on metoprolol, recent new onset of Afib on amiodarone, anticoagulation with Eliquis, known esophageal cancer with dysphagia with a J-tube who was here in the
hospital in February 3 weeks ago treated for aspiration pneumonia, new onset of A. fib. At that time blood pressure medications were adjusted with discontinuation of ARB and hydrochlorothiazide addiotion of AMiodarone, BB and Eliquis. He returns to ER
yesterday with complaints about chest pain and shortness of breath. He underwent CT chest in chair which did not reveal any PE, However shows bilateral pleural effusion left greater than the right, minimal pericardial effusion. There is also
small amount of ascites left upper quadrant. Patchy groundglass obesity with the concentration and pneumonia versus with pul edema. BNP elevated at 9990. Creatinine was elevated yesterday at 1.6, from baseline creatinine of 0.9. Today creatinine
at 1.8, nephrology consulted with the increasing creatinine especially after contrast exposure.
He also has chronic hyponatremia usually low 130 range, sodium improved from 128-132 today.
Of note for his esophageal cancer he completed chemotherapy on January 31 and radiation on February 06.Due for a PET scan next week.
Denies any fever, chills. Has chronic cough. No abdominal pain or nausea or vomiting, he apparently is weaning off of tube feeds.
Past Medical History
Cancer (Esophageal),
GERD
Essential HTN
Appendectomy,
Tonsilectomy
J-tube
Mohs surgery
Subcutaneous port
Parkinson's Disease
Prostate cancer
Chronic cough
Hyponatremia
Hernia - both sides 2020
squamous cell procedures
melanoma on neck
OD cataract 09/28/23
OS cataract 10/26/23
robotic j-tube placement ([facility]) 12/2024
Social History
Tobacco: Non-Smoker
Alcohol: None
Drug: None
Personal:
Living: With Family
Employment: Retired
Family History
Family History: Not Pertinent
Allergies / Home Medications
Allergy/AdvReac Type Severity Reaction Status Date / Time
No Known Allergies Allergy Verified 03/15/25 10:43
�Medication �Instructions �Recorded �Confirmed �Type
carbidopa 25 mg-levodopa 100 mg 1.5 tab PO TID PARKINSON 02/19/25 03/15/25 History
tablet
apixaban 5 mg tablet (Eliquis) 5 mg PO BID #60 tabs 02/20/25 03/15/25 Rx
metoprolol succinate 25 mg 25 mg PO DAILY 30 days #30 tabs 02/23/25 03/15/25 Rx
tablet,extended release 24 hr
amiodarone 200 mg tablet 200 mg PO BID Heart Failure 03/15/25 03/15/25 History
Review of Systems
-
All other systems: Negative unless noted
Physical Exam
Vital Signs
Vital Signs
Temp Pulse Resp BP Pulse Ox
97.4 F 60 18 128/63 95
03/16/25 11:30 03/16/25 11:30 03/16/25 11:30 03/16/25 11:30 03/16/25 11:30
Lab Results
WBC 8.0 10^3/uL (4.8-10.8) 03/16/25 06:20
RBC 2.88 10^6/uL (4.70-6.10) L 03/16/25 06:20
Hgb 9.0 g/dL (13.0-18.0) L 03/16/25 06:20
Hct 27.3 % (39.0-52.0) L 03/16/25 06:20
Plt Count 178 10^3/uL (130-400) 03/16/25 06:20
Sodium 132 mmol/L (135-145) L 03/16/25 06:20
Potassium 4.9 mmol/L (3.5-5.1) 03/16/25 06:20
Chloride 103 mmol/L (98-107) 03/16/25 06:20
Carbon Dioxide 23 mmol/L (22-30) 03/16/25 06:20
BUN 39 mg/dl (9-20) H 03/16/25 06:20
Creatinine 1.8 mg/dL (0.7-1.3) H 03/16/25 06:20
eGFR 36.43 03/16/25 06:20
Glucose 95 mg/dl (70-99) 03/16/25 06:20
Calcium 8.8 mg/dl (8.4-10.2) 03/16/25 06:20
Qsd-D-Dalnrpmmuro Pept 9990 pg/ml 03/15/25 21:28
Albumin 3.6 g/dl (3.5-5.0) 03/15/25 12:30
Physical Exam
General: Awake, Alert, Oriented, AOx3 and No Distress
HEENT: EOMI, Anicteric, Conjunctivae Clear, Facial Symmetry and Neck Supple
Respiratory: Normal Excursion, Nonlabored Respirations and Other (Decreased breath sounds)
Cardiac: S1/S2 and Regular Rate/Rhythm
Breast: Deferred by me
Abdomen: Soft, Nontender and Nondistended
Musculoskeletal: No Cyanosis and No Edema
Skin: No Rash
Neuro: Nonfocal/Grossly Intact
Psych: Mood/afflect pleasant, Insight/judgement good and Appropriate
Data Reviewed
-
Radiology: Report Reviewed by me and Discussed with Patient
Labs: Labs Reviewed by me and Discussed with Patient
Assessment/Plan
-
IMP:
Shortness of breath likely multifactorial due to pulmonary edema versus pneumonia versus pleural effusion
BIlat pleural effusion left>right
Acute kidney injury-baseline cr 0.9, recent cr 1.1 in February
Chr hyponatremia
Parkinson's disease
Paroxysmal atrial fibrillation
Esophageal stage III adenocarcinoma status post J-tube placement
Stated completed chemo and radiation for throat in January 2024
Dysphagia
Normocytic anemia likely secondary to chemotherapy
Plan:
Recent d/c after treating PNA and Afib now p/w SOB and CP, neg PE on CTA
ADELE-bland UA and Fena low 0.5% suggest prerenal
check bladder scan, if cr still high check renal US
monitor cr post contrast exposure on 03/15
echo in February shows normal EF
difficult to assess vol status with effusions and elevated BNP
hold IVF for now
BP stable
likely benefit from thoracentesis
hyponatremia-improving post IVF to 132
follow labs
d/w pt
[2025-03-16 19:20] VITALS: BP 121/56
[2025-03-16 19:25] LABS: LDH 199 U/L (120-246); Total Protein 5.5 g/dl (6.3-8.2)
[2025-03-16] MEDS: STERILE WATER FOR INJECTION 10 ML IV (21:14)
[2025-03-16] MEDS: ROCEPHIN 1000 MG IV (21:14)
[2025-03-16 23:35] VITALS: BP 124/57
[2025-03-16] MEDS: BENADRYL 6.25 MG IV (23:41)
[2025-03-17] VITALS (7 sets, daily range): BP systolic 110–161; BP diastolic 49–75; PULSE 60; O2SAT 96
[2025-03-17 06:37] LABS: Hematocrit 25.7 % (39.0-52.0); Hemoglobin 8.5 g/dL (13.0-18.0); Mean Corp Hgb Conc. 33.1 g/dL (33.0-37.0); Mean Corpuscular Volume 94.1 fL (80.0-94.0); Nucleated Red Blood Cells % 0 % (-); Platelet Count 177 10^3/uL (130-400); Red Cell Dist. Width 18.4 % (11.5-14.5)
[2025-03-17 06:57] LABS: Blood Urea Nitrogen 41 mg/dl (9-20); Calcium 8.9 mg/dl (8.4-10.2); Carbon Dioxide 22 mmol/L (22-30); Chloride 104 mmol/L (98-107); Estimated Creatinine Clearance 34 ml/min; Glucose 91 mg/dl (70-99); Potassium 4.2 mmol/L (3.5-5.1); Sodium 132 mmol/L (135-145); eGFR 45.34
[2025-03-17] MEDS: ELIQUIS 5 MG PO ×2 (07:40→19:48)
[2025-03-17] MEDS: PACERONE 200 MG PO (07:40)
[2025-03-17] MEDS: VIBRAMYCIN 100 MG PO ×2 (07:40→19:49)
[2025-03-17] MEDS: SINEMET 25-100 1.5 TABLET PO ×3 (07:42→21:37)
[2025-03-17] MEDS: TOPROL XL 25 MG PO (07:42)
--- NOTE | 2025-03-17 10:52 | W.PN.HOSP.TC ---
Addendum entered and electronically signed by Mohit Ray MD 03/17/25 14:26:
Patient with bradycardia. Heart rate in 40s. No severe pauses were noted. Patient was recently evaluated by cardiology for new onset of atrial fibrillation and placed on amiodarone 200 mg twice daily and Toprol. Will hold amiodarone for now and
consult cardiology.
d/w with spouse once again at bedside.
Original Note:
Today's Communication/Plan
-
Continue with antibiotic
Thoracentesis pending
Trend CBC and BMP
Assessment / Plan
Assessment / Plan
#Shortness of breath likely multifactorial due to pulmonary edema versus pneumonia versus pleural effusion
Procalcitonin mildly elevated. However in the setting of elevated creatinine
Continue with IV broad-spectrum antibiotics for now
CT chest were negative for pulmonary embolism. Showed pleural effusion the right side however x-ray this morning with mild. CT chest with pleural effusions.
[facility] eval for thoracentesis
Currently stable on room air
Troponin were checked and found to be negative
COVID and influenza found to be negative
Sputum culture pending
Leukocytosis resolved. Trend WBC and fever curve
#Acute kidney injury possibly
Did receive IV contrast on admission. Possibly too early for ATN picture
urine studies with pre-renal FENA. UA bland noted
Bladder scan protocol
Creatinine bumped to 1.8
Avoid nephrotoxin.
Stop further fluids. Lactic acid normal. proBNP elevated.
Creatinine improving to the
Continue to monitor
#Mild hyponatremia
Na improved
#Parkinson's disease
Continue with carbidopa levodopa home regimen
#Paroxysmal atrial fibrillation
Continue with amiodarone 200 mg twice daily For 4 weeks upon last admission cardiology note from 02/23
Cont metoprolol and Eliquis
Monitor on telemetry
Recent ECHO-ECHO 02/19/25: Mild LVH, EF 57%, aortic sclerosis with trace aortic regurgitation, mild TR, pulmonary artery systolic pressures 37 atria and right heart are normal, mild mitral regurgitation
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
Stated completed chemo and radiation for throat
Due to get PET scan on 03/22/2025
Continue to follow-up with oncology as outpatient
#Dysphagia
Recent speech evaluation with soft and bite-size diet
# Normocytic anemia likely secondary to chemotherapy
Continue to monitor hemoglobin. Transfuse for hemoglobin less than 7.
Some dilutional component noted.
Follows with Dr. Wolfe [facility]
DVT ppx-eliquis
Full code
d/w with spouse at bedside in details on daily basis
Anticipated Discharge: > 48 hours
Subjective/Interval History
-
Date of Service: March 17, 2025
Mild shortness of breath
Tolerating diet
Had a bowel movement earlier today
Objective Data
-
Labs:
Laboratory Results
03/17/25
06:21
WBC 7.0
Hgb 8.5 L
Hct 25.7 L
Plt Count 177
Sodium 132 L
Potassium 4.2
Chloride 104
Carbon Dioxide 22
BUN 41 H
Creatinine 1.5 H
Glucose 91
Calcium 8.9
Vital Signs:
Vital Signs
Temp Pulse Resp BP Pulse Ox
98.4 F 62 16 131/72 94
03/17/25 07:25 03/17/25 07:42 03/17/25 07:25 03/17/25 07:42 03/17/25 08:00
I&O
03/16/25 03/17/25 03/18/25
06:59 06:59 06:59
Intake Total 960 / 960
Output Total 200 / 200 800 / 800
Balance -200 / -200 160 / 160
Physical Exam
-
General: Well Developed and No Apparent Distress
HEENT: Normocephalic, Atraumatic and Moist Mucous Membranes
Respiratory: Clear to Auscultation and Other (port R chest wall noted )
Cardiac: Regular Rhythm and S1/S2; Negative Murmur, Rub or Gallop
GI: Soft, Nontender, Nondistended, Normal Bowel Sounds and Peg Tube; Negative Organomegaly
Rectal: Deferred by Provider
Musculoskeletal: No Clubbing, No Cyanosis and No Edema
Skin: Negative Rash
Neuro: Awake and Nonfocal/Grossly Intact
Psych: Calm
Data Reviewed
-
Total Time Spent with Patient (in minutes): 55
--- NOTE | 2025-03-17 12:30 | W.PN.NEPH.PH ---
Today's Communication / Plan
-
follow labs
Assessment/Plan
-
IMP:
Shortness of breath likely multifactorial due to pulmonary edema versus pneumonia versus pleural effusion
BIlat pleural effusion left>right
Acute kidney injury-baseline cr 0.9, recent cr 1.1 in February
Chr hyponatremia
Parkinson's disease
Paroxysmal atrial fibrillation
Esophageal stage III adenocarcinoma status post J-tube placement
Stated completed chemo and radiation for throat in January 2024
Dysphagia
Normocytic anemia likely secondary to chemotherapy
Plan:
Recent d/c after treating PNA and Afib p/w SOB and CP, neg PE on CTA
ZACH-bland UA and Fena low 0.5% suggest prerenal
cr improving slowly to 1.5
bladder scan 189cc
echo in February shows normal EF
difficult to assess vol status with effusions and elevated BNP
BP stable
pending thoracentesis
hyponatremia-stable, cotn FR
follow labs
d/w pt
-
-
Date of Service: March 17, 2025
CC / HPI / ROS
-
Chief Complaint:
ZACH
History of Present Illness:
cr better at 1.5
BP stable, sodium stable at 132
Review of Systems:
no cp or sob
feels well
Labs
-
Labs:
WBC 7.0 10^3/uL (4.8-10.8) 03/17/25 06:21
RBC 2.73 10^6/uL (4.70-6.10) L 03/17/25 06:21
Hgb 8.5 g/dL (13.0-18.0) L 03/17/25 06:21
Hct 25.7 % (39.0-52.0) L 03/17/25 06:21
Plt Count 177 10^3/uL (130-400) 03/17/25 06:21
Sodium 132 mmol/L (135-145) L 03/17/25 06:21
Potassium 4.2 mmol/L (3.5-5.1) 03/17/25 06:21
Chloride 104 mmol/L (98-107) 03/17/25 06:21
Carbon Dioxide 22 mmol/L (22-30) 03/17/25 06:21
BUN 41 mg/dl (9-20) H 03/17/25 06:21
Creatinine 1.5 mg/dL (0.7-1.3) H 03/17/25 06:21
eGFR 45.34 03/17/25 06:21
Glucose 91 mg/dl (70-99) 03/17/25 06:21
Calcium 8.9 mg/dl (8.4-10.2) 03/17/25 06:21
Xip-L-Abofiatftqo Pept 9990 pg/ml 03/15/25 21:28
Albumin 3.6 g/dl (3.5-5.0) 03/15/25 12:30
Physical Exam
-
Vital Signs:
Vital Signs
Temp Pulse Resp BP Pulse Ox
97.9 F 60 16 133/67 97
03/17/25 11:45 03/17/25 11:45 03/17/25 11:45 03/17/25 11:45 03/17/25 11:45
Cardiovascular:: Regular rate and rhythm
Respiratory:: Bilateral: CTA (decreased)
Lung Excursion:: Normal
Abdomen:: Distended, Nontender and Soft
Extremity Edema:: +1: Bilateral:
Sosa Catheter: No
[2025-03-17 12:55] LABS: Ferritin 310.0 ng/ml (17.9-464.0)
[2025-03-17 13:26] LABS: Folate 9.5 ng/ml (2.76-20); Vitamin B12 744 pg/ml (239-931)
--- NOTE | 2025-03-17 16:18 | CM ---
Met with patient to obtain information for assessment. Patient stated that he lives with his in an apt with elevator access. She assists him with all track greaser, bathing, dressing and personal care. She does the cooking, cleaning, laundry
and track greaser. He has a w/c, walker, and a hospital bed. He stated that he is current with [facility] but could not remember the agency. He has never been to SNF.
Plan: Case management will continue to follow and assist with discharge planning. Will watch for needs.
--- NOTE | 2025-03-17 18:49 | VNURNOTE ---
Chart reviewed.� Patient is current with [facility] nursing.� Will continue to follow hospital course and DC plans.
[2025-03-17] MEDS: STERILE WATER FOR INJECTION 10 ML IV (19:48)
[2025-03-17] MEDS: ROCEPHIN 1000 MG IV (19:49)
[2025-03-18] VITALS (8 sets, daily range): BP systolic 59–168; BP diastolic 68–87
[2025-03-18 06:00] LABS: Hematocrit 27.2 % (39.0-52.0); Hemoglobin 8.9 g/dL (13.0-18.0); Mean Corp Hgb Conc. 32.7 g/dL (33.0-37.0); Mean Corpuscular Volume 94.1 fL (80.0-94.0); Nucleated Red Blood Cells % 0 % (-); Platelet Count 179 10^3/uL (130-400); Red Cell Dist. Width 17.6 % (11.5-14.5)
[2025-03-18 06:19] LABS: ALT (SGPT) 13 U/L (0-50); AST (SGOT) 45 U/L (17-59); Albumin 3.0 g/dl (3.5-5.0); Alkaline Phosphatase 120 U/L (38-126); Blood Urea Nitrogen 42 mg/dl (9-20); Calcium 8.9 mg/dl (8.4-10.2); Carbon Dioxide 23 mmol/L (22-30); Chloride 107 mmol/L (98-107); Estimated Creatinine Clearance 37 ml/min; Glucose 88 mg/dl (70-99); LDH 162 U/L (120-246); Potassium 4.0 mmol/L (3.5-5.1); Sodium 135 mmol/L (135-145); Total Protein 5.7 g/dl (6.3-8.2); eGFR 49.25
--- NOTE | 2025-03-18 07:33 | W.PN.HOSP.TC ---
Today's Communication/Plan
-
Lasix, hold amiodarone metoprolol as per cardio
follow thoracentesis fluid studies
monitor renal function
cont abx
PT
Assessment / Plan
Assessment / Plan
Physical Exam
General: No acute distress, appears comfortable at this time
HEENT: Normocephalic, Atraumatic and Moist Mucous Membranes
Respiratory: Clear to Auscultation, port R chest wall noted
Cardiac: Regular Rhythm and S1/S2; Negative Murmur, Rub or Gallop
GI: Soft, Nontender, Nondistended, Normal Bowel Sounds and Peg Tube; Negative Organomegaly
Musculoskeletal: No Clubbing, No Cyanosis and No Edema
Skin: Negative Rash
Neuro: AOx3 conversant Coherent
Psych: Calm
84M hx Esophageal Ca recently completed chemorad here for PNA Pleural Effusion ZACH and later severe Bradycardia.
#Shortness of breath likely multifactorial due to pulmonary edema versus pneumonia versus pleural effusion
Procalcitonin mildly elevated. However in the setting of elevated creatinine
Continue Ceftriaxone Doxycycline for now, planned for [address] chest negative for pulmonary embolism
Chest US noted Pleural effusions Lt > Rt
[facility] eval appreciated Lt thoracentesis 03/18/25 700 cc removed, follow fluid studies
stable on room air
Troponin neg x 4 on admission
COVID/Flu neg
Sputum culture pending
mild Leukocytosis resolved.
Trend WBC and fever curve
#Acute kidney injury possibly contrast induced
urine studies with pre-renal FENA. UA marquise noted
Bladder scan protocol
Creatinine high 1.8 since trended down
Avoid nephrotoxin.
IVF since completed. Lactic acid normal. proBNP 9000s.
Nephro eval appreciated
#Possible Acute HFpEF vs Iatrogenic Fluid Overload
Cardio eval appreciated trial Lasix
02/20 ECHO appreciated EF 57% no significant change from Sep 2023
#Mild hyponatremia persistent
Na improved
cont Fluid restriction 48 oz
#Parkinson's disease
Continue with carbidopa levodopa home regimen
#Paroxysmal atrial fibrillation
#Severe Bradycardia noted during stay
cont Eliquis
Monitor on telemetry
Cardio eval appreciated hold Amiodarone and Metoprolol at this time.
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
completed chemo and radiation for throat
Due to get PET scan on 03/22/2025
Continue to follow-up with oncology as outpatient
#Dysphagia
Recent speech evaluation with soft and bite-size diet
# Normocytic anemia likely secondary to chemotherapy
Continue to monitor hemoglobin. Transfuse for hemoglobin less than 7.
Some dilutional component noted.
Follows with Dr. Wolfe [facility]
H&H stable
DVT ppx-eliquis
Full code
Discussed with patient and patient's Shu
I spent a total of 45 minutes with the patient or on the floor. More than 50% of this time involved counseling and coordination of care.
Anticipated Discharge: 24 - 48 hours
Subjective/Interval History
-
Date of Service: March 18, 2025
no acute distress sitting up comfortable in chair. Overall reports feeling well s/p Left thoracentesis. Stable respiratory status on room air. Bradycardia notably improved since hold Amiodarone and Metoprolol
Objective Data
-
Labs:
Laboratory Results
03/18/25
05:36
WBC 7.5
Hgb 8.9 L
Hct 27.2 L
Plt Count 179
Sodium 135
Potassium 4.0
Chloride 107
Carbon Dioxide 23
BUN 42 H
Creatinine 1.4 H
Glucose 88
Calcium 8.9
Total Bilirubin 0.4
AST 45
ALT 13
Alkaline Phosphatase 120
Vital Signs:
Vital Signs
Temp Pulse Resp BP Pulse Ox
98.8 F 58 14 152/73 93
03/18/25 03:40 03/18/25 03:40 03/18/25 03:40 03/18/25 03:40 03/18/25 03:40
I&O
03/17/25 03/18/25 03/19/25
06:59 06:59 06:59
Intake Total 960 / 960 1180 / 1180
Output Total 800 / 800 250 / 250
Balance 160 / 160 930 / 930
[2025-03-18] MEDS: TOPROL XL PO (07:55)
[2025-03-18] MEDS: ELIQUIS 5 MG PO ×2 (07:55→19:54)
[2025-03-18] MEDS: SINEMET 25-100 1.5 TABLET PO ×3 (07:55→21:31)
[2025-03-18] MEDS: VIBRAMYCIN 100 MG PO ×2 (07:55→19:53)
--- NOTE | 2025-03-18 08:37 | CON.CAR ---
Addendum entered and electronically signed by Giovanni Singer MD 03/18/25 11:47:
Of note consultation was for bradycardia. Will hold amiodarone and Toprol. Discussed with nursing and at bedside.
Addendum entered and electronically signed by Giovanni Singer MD 03/18/25 11:44:
I saw and examined the patient.
The MENTAL HEALTH PROFESSIONAL or PA's note was reviewed and I agree with the note.
Comment: General: Well developed, well nourished in NAD.
Neck: Supple, no JVD, HJR, carotids +2 B/L, no bruits bilaterally.
Heart: Non displaced PMI, irregular, no murmurs, No S3, S4, no rubs.
Lungs: Scattered rhonchi
Abdomen: Normal bowel sounds, soft, non-tender, non-distended.
Extremities: No clubbing, cyanosis or edema bilaterally.
Neuro: Grossly nonfocal, awake, alert and oriented x3.
Deshawn has a history of A-fib, stage III esophageal cancer, Parkinson's, hypertension, hyponatremia. He was admitted in February 2025 with pneumonia and new onset A-fib. Started on amiodarone, Toprol, and Eliquis. Ejection fraction was normal on
echocardiogram. He was seen in follow-up in February 2025 with increasing lower extremity edema and chest pain. He was arranged for outpatient stress testing and recommended to restart hydrochlorothiazide that he was on in the past it was stopped on
prior admission due to hyponatremia. He recurrent chest pain stroke but came to the ER and is now admitted. He feels better since admission. Of note he had 700 mL thoracentesis earlier today. Etiology of the effusion is unclear. May be an
element of CHF with elevated proBNP of 9900 and will give IV Lasix. Continue treatment pneumonia. Await fluid analysis. Discussed with patient's in detail and answered questions related from her son who is a neuroradiologist.
Original Note:
Consultation
Consultation Request
Date/Time Consultation Requested: 03/18/2025
Date/Time Consultation Performed: 03/18/2025
Requesting Provider: Dr. Ray
Performing Provider: Kaylin Coon PA-C for Dr. Singer
Reason for Consultation: Bradycardia
Medical History
-
History of Present Illness:
HPI: Deshawn is an 84 year old male with PMH of paroxysmal atrial fibrillation, stage III esophageal cancer, Parkinson's, HTN, hyponatremia, and DDD. He was recently admitted at [facility] 02/19/2025 to 02/23/2025 with pneumonitis and new atrial fibrillation.
During this admission he was started on amiodarone, Toprol, and Eliquis. Echo showed preserved EF with no significant valvular disease. He was seen in follow up 03/13 and noted increased LE edema with some chest pain. He was arranged for OP stress
testing and was recommended to restart low dose diuretic as he had previously been on candesartan HCTZ, but this was stopped during prior admission. He had recurrent chest pain and SOB the next day on 03/15 and came in to the ER for evaluation. Was
not able to trial a dose of lasix as prescribed as he had recurrent symptoms. He was noted to have possible pneumonia as well as b/l pleural effusions on chest CT, but no PE. Chest US completed and effusions noted to be small. ProBNP elevated at
9990, however ZACH also noted on admission with creat up to 1.8. Nephrology has been following and renal function slowly improving. Creat down to 1.4 in AM 03/18. Cardiology consulted due to bradycardia which was noted on telemetry, mostly overnight
with HR dropping into the 40s. Patient denies any syncope or near syncope, but did feel somewhat off balance early in AM when ambulating to bathroom. Amiodarone stopped and HRs appear improved, mostly in the 50s to 60s.
PMH:
Paroxysmal atrial fibrillation
Amiodarone therapy
Chronic OAC w/ Eliquis
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
Parkinson's disease
Hypertension
Hyponatremia
Concern for bilateral renal artery stenosis by CT abdomen and pelvis
DDD
Past Medical History
Past Medical History: Other (in HPI)
Social History
Tobacco: Non-Smoker
Alcohol: Occasional
Personal:
Living: With Family
Employment: Retired
Family History
Family History: Cancer and Other (afib)
Allergies / Home Medications
Allergy/AdvReac Type Severity Reaction Status Date / Time
No Known Allergies Allergy Verified 03/15/25 10:43
�Medication �Instructions �Recorded �Confirmed �Type
carbidopa 25 mg-levodopa 100 mg 1.5 tab PO TID PARKINSON 02/19/25 03/15/25 History
tablet
apixaban 5 mg tablet (Eliquis) 5 mg PO BID #60 tabs 02/20/25 03/15/25 Rx
metoprolol succinate 25 mg 25 mg PO DAILY 30 days #30 tabs 02/23/25 03/15/25 Rx
tablet,extended release 24 hr
amiodarone 200 mg tablet 200 mg PO BID Heart Failure 03/15/25 03/15/25 History
Review of Systems
-
History Source: Patient
All other systems: Negative unless noted
Physical Exam
Vital Signs
Temp Pulse Resp BP Pulse Ox
98.6 F 57 28 167/87 94
03/18/25 07:34 03/18/25 07:55 03/18/25 07:34 03/18/25 07:34 03/18/25 07:34
Lab Results
03/18/25 05:36
03/18/25 05:36
Troponin I Cancelled 03/16/25 19:57
Nte-E-Rijtnyidgxv Pept 9990 pg/ml 03/15/25 21:28
Physical Exam
General: Well Developed, Well Nourished and No Apparent Distress
HEENT: Normocephalic and Moist Mucous Membranes
Respiratory: Rhonchi and Non Labored Respirations
Cardiac: S1/S2 and Regular Rhythm
Musculoskeletal: No Clubbing, No Cyanosis and No Edema
Skin: Warm and Dry
Neuro: AO x 3 and Nonfocal/Grossly Intact
Psych: Calm
Impression / Plan
-
PCP: Dr. Tesfaye
Dressmaker Or Tailor: Dr. Gutierrez
Impression:
Presented with CP, SOB
Bradycardia
Pleural effusions
Possible pneumonia
ZACH
Paroxysmal atrial fibrillation
Amiodarone therapy, currently on hold
Chronic OAC w/ Eliquis
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
Parkinson's disease
Hypertension
Hyponatremia
Dysphagia
Concern for bilateral renal artery stenosis by CT abdomen and pelvis
DDD
Echo 09/26/2023: EF 55%, mild MR, mild TR, PAP 20 to 25 mmHg, aortic root normal size, interatrial septum hypermobile and aneurysmal with no evidence of shunt
ECHO 02/19/2025: Mild LVH, EF 57%, aortic sclerosis with trace aortic regurgitation, mild TR, pulmonary artery systolic pressures 37 atria and right heart are normal, mild mitral regurgitation
Plan:
-Presented with chest pain and SOB. Admitted with possible pneumonia, pleural effusions and ZACH.
-Chest CT negative for PE. b/l pleural effusions noted, possible pneumonia. Continue abx per primary service. Does note dysphagia, even with small amounts of water.
-ProBNP elevated at 9990. He had noted increased LE edemas as OP and was going to trial low dose lasix, however did not start due to readmission and ZACH. Nephrology following. Creat down to 1.4.
-Follow volume status closely.
-Echo 02/19 noted preserved EF with mild MR as noted above. No need to repeat this admission.
-Bradycardia noted on telemetry intermittently, resulting in cardiology consult. New to amiodarone 200mg BID and Toprol 25mg daily during recent admission 02/2025.
-Amiodarone on hold and HRs appear improved.
-During prior admission when in afib, HRs were rapid and hypotension limited uptitration of Toprol.
-BPs are stable at this time, in SR on review of EKGs and on tele overnight. Continue Toprol alone for now.
-Continue Eliquis 5mg BID for anticoagulation.
-Chest pain noted intermittently at home. Has been arranged for OP stress testing to evaluate on 04/01. Troponin detectable but within normal limits this admission.
HPI: Deshawn is an 84 year old male with PMH of paroxysmal atrial fibrillation, stage III esophageal cancer, Parkinson's, HTN, hyponatremia, and DDD. He was recently admitted at [facility] 02/19/2025 to 02/23/2025 with pneumonitis and new atrial fibrillation.
During this admission he was started on amiodarone, Toprol, and Eliquis. Echo showed preserved EF with no significant valvular disease. He was seen in follow up 03/13 and noted increased LE edema with some chest pain. He was arranged for OP stress
testing and was recommended to restart low dose diuretic as he had previously been on candesartan HCTZ, but this was stopped during prior admission. He had recurrent chest pain and SOB the next day on 03/15 and came in to the ER for evaluation. Was
not able to trial a dose of lasix as prescribed as he had recurrent symptoms. He was noted to have possible pneumonia as well as b/l pleural effusions on chest CT, but no PE. Chest US completed and effusions noted to be small. ProBNP elevated at
9990, however ZACH also noted on admission with creat up to 1.8. Nephrology has been following and renal function slowly improving. Creat down to 1.4 in AM 03/18. Cardiology consulted due to bradycardia which was noted on telemetry, mostly overnight
with HR dropping into the 40s. Patient denies any syncope or near syncope, but did feel somewhat off balance early in AM when ambulating to bathroom. Amiodarone stopped and HRs appear improved, mostly in the 50s to 60s.
Data Reviewed
-
EKG: Tracing Personally Visualized and interpreted
Radiology: Report Reviewed by me
CT Scan: Report Reviewed by me
Ultrasound: Report Reviewed by me
Labs: Labs Reviewed by me
Old Records: Reviewed
[2025-03-18] MEDS: LASIX 40 MG IV (11:59)
[2025-03-18 13:17] LABS: Body Fluid Second Tech AMA
--- NOTE | 2025-03-18 16:09 | W.PN.NEPH.PH ---
Today's Communication / Plan
-
FR and lasix
Assessment/Plan
-
IMP:
Shortness of breath likely multifactorial due to pulmonary edema versus pneumonia versus pleural effusion
BIlat pleural effusion left>right
Acute kidney injury-baseline cr 0.9, recent cr 1.1 in February
Chr hyponatremia
Parkinson's disease
Paroxysmal atrial fibrillation
Esophageal stage III adenocarcinoma status post J-tube placement
Stated completed chemo and radiation for throat in January 2024
Dysphagia
Normocytic anemia likely secondary to chemotherapy
Plan:
Recent d/c after treating PNA and Afib p/w SOB and CP, neg PE on CTA
ZACH-bland UA and Fena low 0.5% suggest prerenal
cr improving slowly to 1.4
bladder scan 189cc
echo in February shows normal EF
difficult to assess vol status with effusions and elevated BNP
s/p thoracentesis today 700cc
BP stable
agree with lasix per cards
follow labs
d/w pt
-
-
Date of Service: March 18, 2025
CC / HPI / ROS
-
Chief Complaint:
ZACH
History of Present Illness:
cr better at 1.4
BP stable, sodium better at 135
left thoracentesis 700cc
Review of Systems:
no cp or sob
feels well
Labs
-
Labs:
WBC 7.5 10^3/uL (4.8-10.8) 03/18/25 05:36
RBC 2.89 10^6/uL (4.70-6.10) L 03/18/25 05:36
Hgb 8.9 g/dL (13.0-18.0) L 03/18/25 05:36
Hct 27.2 % (39.0-52.0) L 03/18/25 05:36
Plt Count 179 10^3/uL (130-400) 03/18/25 05:36
Sodium 135 mmol/L (135-145) 03/18/25 05:36
Potassium 4.0 mmol/L (3.5-5.1) 03/18/25 05:36
Chloride 107 mmol/L (98-107) 03/18/25 05:36
Carbon Dioxide 23 mmol/L (22-30) 03/18/25 05:36
BUN 42 mg/dl (9-20) H 03/18/25 05:36
Creatinine 1.4 mg/dL (0.7-1.3) H 03/18/25 05:36
eGFR 49.25 03/18/25 05:36
Glucose 88 mg/dl (70-99) 03/18/25 05:36
Calcium 8.9 mg/dl (8.4-10.2) 03/18/25 05:36
Elp-V-Tapxaqvimgo Pept 9990 pg/ml 03/15/25 21:28
Albumin 3.0 g/dl (3.5-5.0) L 03/18/25 05:36
Physical Exam
-
Vital Signs:
Vital Signs
Temp Pulse Resp BP Pulse Ox
98.4 F 72 20 155/68 97
03/18/25 11:37 03/18/25 11:59 03/18/25 11:37 03/18/25 11:59 03/18/25 11:37
Cardiovascular:: Regular rate and rhythm
Respiratory:: Bilateral: CTA (decreased)
Lung Excursion:: Normal
Abdomen:: Distended, Nontender and Soft
Extremity Edema:: +1: Bilateral:
Sosa Catheter: No
[2025-03-18] MEDS: ROCEPHIN 1000 MG IV (19:54)
[2025-03-18] MEDS: STERILE WATER FOR INJECTION 10 ML IV (19:54)
[2025-03-19] VITALS (8 sets, daily range): BP systolic 142–172; BP diastolic 60–80; PULSE 65–73; O2SAT 97
[2025-03-19 04:43] LABS: Hematocrit 26.8 % (39.0-52.0); Hemoglobin 8.8 g/dL (13.0-18.0); Mean Corp Hgb Conc. 32.8 g/dL (33.0-37.0); Mean Corpuscular Volume 94.7 fL (80.0-94.0); Platelet Count 182 10^3/uL (130-400); Red Cell Dist. Width 17.6 % (11.5-14.5)
[2025-03-19 05:08] LABS: Blood Urea Nitrogen 37 mg/dl (9-20); Calcium 8.9 mg/dl (8.4-10.2); Carbon Dioxide 27 mmol/L (22-30); Chloride 105 mmol/L (98-107); Estimated Creatinine Clearance 37 ml/min; Glucose 91 mg/dl (70-99); Magnesium 1.9 mg/dl (1.6-2.3); Potassium 3.6 mmol/L (3.5-5.1); Sodium 138 mmol/L (135-145); eGFR 49.25
--- NOTE | 2025-03-19 08:00 | W.PN.HOSP.TC ---
Today's Communication/Plan
-
last day for abx
PO Lasix 20 mg daily
Amiodarone and Metoprolol to resume as per Cardio
Likely discharge tomorrow home w home services if remains stable/cont to improve
Assessment / Plan
Assessment / Plan
Physical Exam
General: No acute distress, appears comfortable at this time
HEENT: Normocephalic, Atraumatic and Moist Mucous Membranes
Respiratory: Clear to Auscultation, port R chest wall noted
Cardiac: Regular Rhythm and S1/S2; Negative Murmur, Rub or Gallop
GI: Soft, Nontender, Nondistended, Normal Bowel Sounds and Peg Tube; Negative Organomegaly
Musculoskeletal: No Clubbing, No Cyanosis and No Edema
Skin: Negative Rash
Neuro: AOx3 conversant Coherent
Psych: Calm
84M hx Esophageal Ca recently completed chemorad here for PNA Pleural Effusion ZACH and later severe Bradycardia.
#Shortness of breath likely multifactorial due to pulmonary edema versus pneumonia versus pleural effusion
Procalcitonin mildly elevated. However in the setting of elevated creatinine
Continue Ceftriaxone Doxycycline, 03/19 last day for total 5 days abx treatment
CT chest negative for pulmonary embolism
Chest US noted Pleural effusions Lt > Rt
iRad eval appreciated Lt thoracentesis 03/18/25 700 cc removed, fluid studies appreciated transudate, Cx NGTD
stable on room air
Troponin neg x 4 on admission
COVID/Flu neg
Blood Cultures NGTD
mild Leukocytosis resolved.
Trend WBC and fever curve
#Acute kidney injury possibly contrast induced
urine studies with pre-renal FENA. UA marquise noted
Bladder scan protocol
Creatinine high 1.8 since trended down
Avoid nephrotoxin.
IVF since completed. Lactic acid normal. proBNP 9000s.
Nephro eval appreciated
#Possible Acute HFpEF vs Iatrogenic Fluid Overload
Cardio eval appreciated
02/20 ECHO appreciated EF 57% no significant change from Sep 2023
tolerated trial of IV Lasix 40 mg once, transitioned to PO Lasix 20 mg daily
#Mild hyponatremia persistent
Na improved
cont Fluid restriction 48 oz
#Parkinson's disease
Continue with carbidopa levodopa home regimen
#Paroxysmal atrial fibrillation
#Severe Bradycardia noted during stay
cont Eliquis
Monitor on telemetry
Cardio eval appreciated briefly held Amiodarone and Metoprolol, since resumed with Amiodarone dose reduced to daily instead of BID
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
completed chemo and radiation for throat
Due to get PET scan on 03/22/2025
Continue to follow-up with oncology as outpatient
#Dysphagia
Recent speech evaluation with soft and bite-size diet
# Normocytic anemia likely secondary to chemotherapy
Continue to monitor hemoglobin. Transfuse for hemoglobin less than 7.
Some dilutional component noted.
Follows with Dr. Wolfe [facility]
H&H stable
DVT ppx-eliquis
Full code
Discussed with patient and patient's Shu
I spent a total of 40 minutes with the patient or on the floor. More than 50% of this time involved counseling and coordination of care.
Anticipated Discharge: Within 24 hours
Subjective/Interval History
-
Date of Service: March 19, 2025
No acute distress, resting comfortably in bed. Overall reports feeling well. Denies new acute issues. Shu present during evaluation.
Objective Data
-
Labs:
Laboratory Results
03/19/25
04:13
WBC 6.1
Hgb 8.8 L
Hct 26.8 L
Plt Count 182
Sodium 138
Potassium 3.6
Chloride 105
Carbon Dioxide 27
BUN 37 H
Creatinine 1.4 H
Glucose 91
Calcium 8.9
Vital Signs:
Vital Signs
Temp Pulse Resp BP Pulse Ox
98.6 F 60 16 142/75 95
03/19/25 03:00 03/19/25 03:00 03/19/25 03:00 03/19/25 03:00 03/19/25 03:00
I&O
03/18/25 03/19/25 03/20/25
06:59 06:59 06:59
Intake Total 1180 / 1180 720 / 720 480 / 480
Output Total 250 / 250 375 / 375 440 / 440
Balance 930 / 930 345 / 345 40 / 40
[2025-03-19] MEDS: SINEMET 25-100 1.5 TABLET PO ×3 (08:48→22:20)
[2025-03-19] MEDS: VIBRAMYCIN 100 MG PO ×2 (08:48→20:45)
[2025-03-19] MEDS: ELIQUIS 5 MG PO ×2 (08:48→20:44)
--- NOTE | 2025-03-19 12:32 | W.PN.NEPH.PH ---
Today's Communication / Plan
-
dc planning
Assessment/Plan
-
IMP:
Shortness of breath likely multifactorial due to pulmonary edema versus pneumonia versus pleural effusion
BIlat pleural effusion left>right
Acute kidney injury-baseline cr 0.9, recent cr 1.1 in February
Chr hyponatremia
Parkinson's disease
Paroxysmal atrial fibrillation
Esophageal stage III adenocarcinoma status post J-tube placement
Stated completed chemo and radiation for throat in January 2024
Dysphagia
Normocytic anemia likely secondary to chemotherapy
Plan:
Cr back to baseline
Na normal
dc planning
-
-
Date of Service: March 19, 2025
CC / HPI / ROS
-
Chief Complaint:
ZACH
History of Present Illness:
cr better at 1.4 stable
BP stable, sodium better at 138
BP stable
Review of Systems:
no cp or sob
feels well
Labs
-
Labs:
WBC 6.1 10^3/uL (4.8-10.8) 03/19/25 04:13
RBC 2.83 10^6/uL (4.70-6.10) L 03/19/25 04:13
Hgb 8.8 g/dL (13.0-18.0) L 03/19/25 04:13
Hct 26.8 % (39.0-52.0) L 03/19/25 04:13
Plt Count 182 10^3/uL (130-400) 03/19/25 04:13
Sodium 138 mmol/L (135-145) 03/19/25 04:13
Potassium 3.6 mmol/L (3.5-5.1) 03/19/25 04:13
Chloride 105 mmol/L (98-107) 03/19/25 04:13
Carbon Dioxide 27 mmol/L (22-30) 03/19/25 04:13
BUN 37 mg/dl (9-20) H 03/19/25 04:13
Creatinine 1.4 mg/dL (0.7-1.3) H 03/19/25 04:13
eGFR 49.25 03/19/25 04:13
Glucose 91 mg/dl (70-99) 03/19/25 04:13
Calcium 8.9 mg/dl (8.4-10.2) 03/19/25 04:13
Phosphorus 4.4 mg/dl (2.5-4.5) 03/19/25 04:13
Pbi-H-Lxlftfzxfbs Pept 9990 pg/ml 03/15/25 21:28
Albumin 3.0 g/dl (3.5-5.0) L 03/18/25 05:36
Physical Exam
-
Vital Signs:
Vital Signs
Temp Pulse Resp BP Pulse Ox
98.3 F 66 18 157/69 97
03/19/25 11:00 03/19/25 11:00 03/19/25 11:00 03/19/25 11:00 03/19/25 11:00
Cardiovascular:: Regular rate and rhythm
Respiratory:: Bilateral: Coarse
Lung Excursion:: Normal
Abdomen:: Nontender and Soft
Bowel Sounds:: Normal
Extremity Edema:: None: Bilateral:
--- NOTE | 2025-03-19 13:43 | W.PN.CARDCBS ---
Today's Communication / Plan
-
Restart amiodarone 200 mg daily and restart Toprol 25 mg daily
Stable cardiology status for discharge on Lasix 20 mg daily with follow-up renal profile
Stable cardiology status for discharge and will arrange follow-up
Impression / Plan
-
PCP: Dr. Tesfaye
Showcase Maker: Dr. Gutierrez
Impression:
Presented with CP, SOB
Bradycardia
Pleural effusions
Possible pneumonia
ZACH
Paroxysmal atrial fibrillation
Amiodarone therapy, currently on hold
Chronic OAC w/ Eliquis
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
Parkinson's disease
Hypertension
Hyponatremia
Dysphagia
Concern for bilateral renal artery stenosis by CT abdomen and pelvis
DDD
Echo 09/26/2023: EF 55%, mild MR, mild TR, PAP 20 to 25 mmHg, aortic root normal size, interatrial septum hypermobile and aneurysmal with no evidence of shunt
ECHO 02/19/2025: Mild LVH, EF 57%, aortic sclerosis with trace aortic regurgitation, mild TR, pulmonary artery systolic pressures 37 atria and right heart are normal, mild mitral regurgitation
Echocardiogram 02/20/2025: Ejection fraction 57%, PA systolic 37 mmHg
Plan:
He feels well and wants to go home
Discussed with primary service and nephrology
Plan is to go to Lasix 20 mg daily and follow renal function as an outpatient specifically for worsening hyponatremia
Bradycardia has resolved and remains in sinus rhythm
Will resume amiodarone at a lower dose of 20 mg daily and will restart Toprol
Discussed in detail with at bedside and nursing
HPI: Deshawn is an 84 year old male with PMH of paroxysmal atrial fibrillation, stage III esophageal cancer, Parkinson's, HTN, hyponatremia, and DDD. He was recently admitted at [facility] 02/19/2025 to 02/23/2025 with pneumonitis and new atrial fibrillation.
During this admission he was started on amiodarone, Toprol, and Eliquis. Echo showed preserved EF with no significant valvular disease. He was seen in follow up 03/13 and noted increased LE edema with some chest pain. He was arranged for OP stress
testing and was recommended to restart low dose diuretic as he had previously been on candesartan HCTZ, but this was stopped during prior admission. He had recurrent chest pain and SOB the next day on 03/15 and came in to the ER for evaluation. Was
not able to trial a dose of lasix as prescribed as he had recurrent symptoms. He was noted to have possible pneumonia as well as b/l pleural effusions on chest CT, but no PE. Chest US completed and effusions noted to be small. ProBNP elevated at
9990, however ZACH also noted on admission with creat up to 1.8. Nephrology has been following and renal function slowly improving. Creat down to 1.4 in AM 03/18. Cardiology consulted due to bradycardia which was noted on telemetry, mostly overnight
with HR dropping into the 40s. Patient denies any syncope or near syncope, but did feel somewhat off balance early in AM when ambulating to bathroom. Amiodarone stopped and HRs appear improved, mostly in the 50s to 60s.
Progress Note - Showcase Maker
Subjective
Date of Service: March 19, 2025
No complaints
Objective
Labs:
03/19/25 04:13
03/19/25 04:13
Labs
Hgb 8.8 g/dL (13.0-18.0) L 03/19/25 04:13
Hct 26.8 % (39.0-52.0) L 03/19/25 04:13
Plt Count 182 10^3/uL (130-400) 03/19/25 04:13
Sodium 138 mmol/L (135-145) 03/19/25 04:13
Potassium 3.6 mmol/L (3.5-5.1) 03/19/25 04:13
BUN 37 mg/dl (9-20) H 03/19/25 04:13
Creatinine 1.4 mg/dL (0.7-1.3) H 03/19/25 04:13
Glucose 91 mg/dl (70-99) 03/19/25 04:13
Vital Signs and I&O:
Vital Signs
Temp Pulse Resp BP Pulse Ox
98.3 F 66 18 157/69 97
03/19/25 11:00 03/19/25 11:00 03/19/25 11:00 03/19/25 11:00 03/19/25 11:00
Vital Signs
Temp Pulse Resp BP Pulse Ox
98.3 F 66 18 157/69 97
03/19/25 11:00 03/19/25 11:00 03/19/25 11:00 03/19/25 11:00 03/19/25 11:00
Intake & Output
03/17/25 03/18/25 03/19/25 03/20/25
06:59 06:59 06:59 06:59
Intake Total 960 / 960 1180 / 1180 720 / 720 480 / 480
Output Total 800 / 800 250 / 250 375 / 375 440 / 440
Balance 160 / 160 930 / 930 345 / 345 40 / 40
Physical Exam
Physical Exam
General: Well developed, well nourished in NAD.
Neck: Supple, no JVD, HJR, carotids +2 B/L, no bruits bilaterally.
Heart: Non displaced PMI, RRR, no murmurs, No S3, S4, no rubs.
Lungs: Decreased breath sounds at the bases
Extremities: No clubbing, cyanosis or edema bilaterally.
Neuro: Grossly nonfocal, awake, alert and oriented x3.
[2025-03-19] MEDS: LASIX 20 MG PO (14:16)
[2025-03-19] MEDS: ROCEPHIN 1000 MG IV (20:44)
[2025-03-19] MEDS: STERILE WATER FOR INJECTION 10 ML IV (20:44)
[2025-03-20 03:00] VITALS: BP 144/73
[2025-03-20 05:02] LABS: Hematocrit 27.3 % (39.0-52.0); Hemoglobin 9.0 g/dL (13.0-18.0); Mean Corp Hgb Conc. 33.0 g/dL (33.0-37.0); Mean Corpuscular Volume 94.1 fL (80.0-94.0); Platelet Count 190 10^3/uL (130-400); Red Cell Dist. Width 17.2 % (11.5-14.5)
[2025-03-20 05:26] LABS: Blood Urea Nitrogen 31 mg/dl (9-20); Calcium 8.6 mg/dl (8.4-10.2); Carbon Dioxide 28 mmol/L (22-30); Chloride 105 mmol/L (98-107); Estimated Creatinine Clearance 37 ml/min; Glucose 87 mg/dl (70-99); Magnesium 1.8 mg/dl (1.6-2.3); Potassium 3.6 mmol/L (3.5-5.1); Sodium 138 mmol/L (135-145); eGFR 49.25
[2025-03-20 07:00] VITALS: BP 181/79
--- NOTE | 2025-03-20 07:35 | W.PN.HOSP.TC ---
Today's Communication/Plan
-
Discharge
Assessment / Plan
Assessment / Plan
Physical Exam
General: No acute distress, appears comfortable at this time
HEENT: Normocephalic, Atraumatic and Moist Mucous Membranes
Respiratory: Clear to Auscultation, port R chest wall noted
Cardiac: Regular Rhythm and S1/S2; Negative Murmur, Rub or Gallop
GI: Soft, Nontender, Nondistended, Normal Bowel Sounds and Peg Tube; Negative Organomegaly
Musculoskeletal: No Clubbing, No Cyanosis and No Edema
Skin: Negative Rash
Neuro: AOx3 conversant Coherent
Psych: Calm
84M hx Esophageal Ca recently completed chemorad here for PNA Pleural Effusion ZACH and later severe Bradycardia.
#Shortness of breath likely multifactorial due to pulmonary edema versus pneumonia versus pleural effusion
Procalcitonin mildly elevated. However in the setting of elevated creatinine
Completed [address] chest negative for pulmonary embolism
Chest US noted Pleural effusions Lt > Rt
iRad eval appreciated Lt thoracentesis 03/18/25 700 cc removed, fluid studies appreciated transudate, Cx NGTD
stable on room air
Troponin neg x 4 on admission
COVID/Flu neg
Blood Cultures NGTD
mild Leukocytosis resolved.
Trend WBC and fever curve
#Acute kidney injury possibly contrast induced
urine studies with pre-renal FENA. UA marquise noted
Bladder scan protocol
Creatinine high 1.8 since trended down
Avoid nephrotoxin.
IVF since completed. Lactic acid normal. proBNP 9000s.
Nephro eval appreciated
#Possible Acute HFpEF vs Iatrogenic Fluid Overload
Cardio eval appreciated
02/20 ECHO appreciated EF 57% no significant change from Sep 2023
tolerated trial of IV Lasix 40 mg once, transitioned to PO Lasix 20 mg daily
#Mild hyponatremia persistent
Na improved
cont Fluid restriction 48 oz
#Parkinson's disease
Continue with carbidopa levodopa home regimen
#Paroxysmal atrial fibrillation
#Severe Bradycardia noted during stay
cont Eliquis
Monitor on telemetry
Cardio eval appreciated briefly held Amiodarone and Metoprolol, since resumed with Amiodarone dose reduced to daily instead of BID
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
completed chemo and radiation for throat
Due to get PET scan on 03/22/2025
Continue to follow-up with oncology as outpatient
#Dysphagia
Recent speech evaluation with soft and bite-size diet
# Normocytic anemia likely secondary to chemotherapy
Follows with Dr. [facility]
H&H stable
DVT ppx-eliquis
Full code
Medically stable for discharge home with home services and outpatient follow up recommendations.
Discussed with patient and patient's Shu
Total Time Preparing Discharge __40 minutes including examination of the patient, summary of the hospital stay, instructions for continuing care to all relevant caregivers; and preparation of discharge records, prescriptions, and referral
forms if necessary.
Anticipated Discharge: Today
Subjective/Interval History
-
Date of Service: March 20, 2025
no acute distress, sitting up comfortably in bed. Overall reports feeling well. Eager to go home. Denies new acute issues.
Objective Data
-
Labs:
Laboratory Results
03/20/25
04:44
WBC 6.2
Hgb 9.0 L
Hct 27.3 L
Plt Count 190
Sodium 138
Potassium 3.6
Chloride 105
Carbon Dioxide 28
BUN 31 H
Creatinine 1.4 H
Glucose 87
Calcium 8.6
Vital Signs:
Vital Signs
Temp Pulse Resp BP Pulse Ox
98.4 F 66 18 144/73 97
03/20/25 03:00 03/20/25 03:00 03/20/25 03:00 03/20/25 03:00 03/20/25 03:00
I&O
03/19/25 03/20/25 03/21/25
06:59 06:59 06:59
Intake Total 720 / 720 1560 / 1560
Output Total 375 / 375 2260 / 2260
Balance 345 / 345 -700 / -700
[2025-03-20] MEDS: PACERONE 200 MG PO (09:37)
[2025-03-20] MEDS: LASIX 20 MG PO (09:37)
[2025-03-20] MEDS: ELIQUIS 5 MG PO (09:37)
[2025-03-20] MEDS: TOPROL XL 25 MG PO (09:37)
[2025-03-20] MEDS: SINEMET 25-100 1.5 TABLET PO (09:38)
[2025-03-20 11:00] VITALS: BP 142/73
--- NOTE | 2025-03-20 12:10 | W.PN.NEPH.PH ---
Today's Communication / Plan
-
ok for d/c
Assessment/Plan
-
IMP:
Shortness of breath likely multifactorial due to pulmonary edema versus pneumonia versus pleural effusion
BIlat pleural effusion left>right
Acute kidney injury-baseline cr 0.9, recent cr 1.1 in February
Chr hyponatremia
Parkinson's disease
Paroxysmal atrial fibrillation
Esophageal stage III adenocarcinoma status post J-tube placement
Stated completed chemo and radiation for throat in January 2024
Dysphagia
Normocytic anemia likely secondary to chemotherapy
Plan:
Cr baseline, variable range
Na normal
cont lasix
dc planning
-
-
Date of Service: March 20, 2025
CC / HPI / ROS
-
Chief Complaint:
ZACH
History of Present Illness:
cr stable at 1.4 stable
BP stable, sodium better at 138
BP stable
Review of Systems:
no cp or sob
feels well
Labs
-
Labs:
WBC 6.2 10^3/uL (4.8-10.8) 03/20/25 04:44
RBC 2.90 10^6/uL (4.70-6.10) L 03/20/25 04:44
Hgb 9.0 g/dL (13.0-18.0) L 03/20/25 04:44
Hct 27.3 % (39.0-52.0) L 03/20/25 04:44
Plt Count 190 10^3/uL (130-400) 03/20/25 04:44
Sodium 138 mmol/L (135-145) 03/20/25 04:44
Potassium 3.6 mmol/L (3.5-5.1) 03/20/25 04:44
Chloride 105 mmol/L (98-107) 03/20/25 04:44
Carbon Dioxide 28 mmol/L (22-30) 03/20/25 04:44
BUN 31 mg/dl (9-20) H 03/20/25 04:44
Creatinine 1.4 mg/dL (0.7-1.3) H 03/20/25 04:44
eGFR 49.25 03/20/25 04:44
Glucose 87 mg/dl (70-99) 03/20/25 04:44
Calcium 8.6 mg/dl (8.4-10.2) 03/20/25 04:44
Phosphorus 4.1 mg/dl (2.5-4.5) 03/20/25 04:44
Uac-S-Svdmsyptzdj Pept 9990 pg/ml 03/15/25 21:28
Albumin 3.0 g/dl (3.5-5.0) L 03/18/25 05:36
Physical Exam
-
Vital Signs:
Vital Signs
Temp Pulse Resp BP Pulse Ox
98.6 F 60 18 142/73 97
03/20/25 11:00 03/20/25 11:00 03/20/25 11:00 03/20/25 11:00 03/20/25 11:00
Cardiovascular:: Regular rate and rhythm
Respiratory:: Bilateral: Coarse
Lung Excursion:: Normal
Abdomen:: Nontender and Soft
Bowel Sounds:: Normal
Extremity Edema:: None: Bilateral:
Sosa Catheter: No
--- NOTE | 2025-03-20 13:44 | W.DCSUMMARY ---
Discharge Summary
Discharge Data
Date of Admission: 03/15/25
Date of Discharge: 03/20/25
-
Pending Results: Yes
Additional Pending Results:
Pathology results. Official Culture Results
Discharge Plan
-
Patient Disposition: Home with Home Care
Discharge Diagnosis/Procedures: Shortness of breath likely multifactorial due to pulmonary edema versus pneumonia versus pleural effusion
Left Thoracentesis performed 03/18
Acute kidney injury possibly contrast induced
Suspected Acute on Chronic Heart Failure Preserved Ejection Fraction vs Iatrogenic Fluid Overload
Mild hyponatremia persistent
Parkinson's disease
Paroxysmal atrial fibrillation
Severe Bradycardia resolved
Esophageal stage III adenocarcinoma status post J-tube placement
Dysphagia
Normocytic anemia likely secondary to chemotherapy
Condition: Fair
Diet: Restrict fluids to 48 oz
Additional Diets: Soft bit sized diet
Activity: As tolerated and With Walker
Driving Restrictions: Not until seen by your Dr
Blood Work: Repeat CBC and BMP with primary care provider in 1 week of discharge
Others Tests: Repeat Chest X-ray with primary care provider in 1 month of discharge.
Other Services: PT and OT
Specialty Instructions: Weigh Daily- Call MD for wt gain/loss 3 lbs overnight/5 lbs in 1 week
Activity Restrictions/Additional Instructions:
Follow up with primary care provider and oncologist in 1 week of discharge. Follow up with Cardiology in 2 weeks of discharge.
Lasix prescribed for suspected heart failure with preserved ejection fraction.
Amiodarone, for atrial fibrillation, reduced to daily due to severe bradycardia since resolved.
Please take medications as prescribed/recommended and follow up with primary care provider and/or other healthcare provider involved in your care for refills and/or further adjustment to your medication regimen as necessary.
Referrals:
Giovanni Singer MD [Active, Cardiology] - in two weeks
Francisco Tesfaye MD [Family Provider, Internal Medicine] - in one week
Prescriptions:
New
furosemide 20 mg Tablet
20 mg PO DAILY Qty: 30 0RF
Continued
carbidopa-levodopa 25-100 mg tablet
1.5 tab PO TID
Eliquis 5 mg tablet
5 mg PO BID Qty: 60 0RF
metoprolol succinate 25 mg Tablet Extended Release 24 Hr
25 mg PO DAILY 30 Days Qty: 30 0RF
Changed
amiodarone 200 mg tablet
200 mg PO DAILY Qty: 0 0RF
Rx Instructions:
After completed 4 weeks of treatment, continue with 200 mg of amiodarone once a day.
Discharge Orders:
Discharge Patient (As Directed); Ordered 03/20/25
Ordered By: Chris Booth
Discharge Date and Time
Print Language: JAPANESE
[2025-03-20 14:00] VITALS: BP 140/70
--- NOTE | 2025-03-20 14:37 | CM ---
Pt discharged to home today. He is known to [facility] and anticipate resumption. TT sent to Ariadne Granados to confirm.
--- NOTE | 2025-03-20 14:57 | VNURNOTE ---
Late entry: [facility] resumption referral sent and accepted in [facility].
== END 2025-03-20 14:30 | disposition home health service (06) | DRG 682 ==
LOC: 3 WEST ACU 19:39
PROVIDERS: Hospitalist; Nurse Practitioner; Radiology Vascular & Interventional Radiology; ADMITTING PHYSICIAN Internal Medicine; ATTENDING PHYSICIAN Internal Medicine; CONSULT PHYSICIAN Internal Medicine; EMERGENCY PHYSICIAN Emergency Medicine; FAMILY PHYSICIAN Internal Medicine; OTHER PHYSICIAN Internal Medicine Cardiovascular Disease
PROC: 0W9B3ZZ Drainage of Left Pleural Cavity, Percutaneous Approach (ICD-10-PCS; 2025-03-18)
DX: N17.9 Acute kidney failure, unspecified (principal); I50.31 Acute diastolic (congestive) heart failure; J18.9 Pneumonia, unspecified organism; E87.1 Hypo-osmolality and hyponatremia; C15.9 Malignant neoplasm of esophagus, unspecified; I11.0 Hypertensive heart disease with heart failure; G20.A1 Parkinson's disease without dyskinesia, without mention of fluctuations; I48.0 Paroxysmal atrial fibrillation; R13.10 Dysphagia, unspecified; D64.81 Anemia due to antineoplastic chemotherapy; Z79.01 Long term (current) use of anticoagulants; Z11.52 Encounter for screening for COVID-19; Z92.3 Personal history of irradiation; Z92.21 Personal history of antineoplastic chemotherapy; K21.9 Gastro-esophageal reflux disease without esophagitis; Z85.46 Personal history of malignant neoplasm of prostate; Z85.820 Personal history of malignant melanoma of skin; Z79.899 Other long term (current) drug therapy
CPT/HCPCS: 32555; 71045; 71046; 71275; 76604; 80048; 80053; 81003; 81015; 82570; 82607; 82728; 82746; 82945; 83605; 83615; 83735; 83880; 83986; 84100; 84145; 84155; 84157; 84300; 84484; 85025; 85027; 87015; 87040; 87070; 87205; 87502; 87811; 87899; 88112; 88305; 88341; 88342; 89051; 93005; 94760; 96374; 97116; 97163; 97167; 99285; Q9967

== ENCOUNTER → 2025-03-26 09:52 | Outpatient (REF) | payer MEDICARE, OTHER, SELFPAY ==
[2025-03-26 11:58] LABS: Blood Urea Nitrogen 35 mg/dl (9-20); Calcium 9.0 mg/dl (8.4-10.2); Carbon Dioxide 27 mmol/L (22-30); Chloride 102 mmol/L (98-107); Glucose 118 mg/dl (70-99); Potassium 3.8 mmol/L (3.5-5.1); Sodium 137 mmol/L (135-145); eGFR 45.34
== END ==
LOC: REG 09:52
PROVIDERS: ATTENDING PHYSICIAN Physician Assistant Medical; FAMILY PHYSICIAN Internal Medicine
DX: N17.9 Acute kidney failure, unspecified (principal); J90 Pleural effusion, not elsewhere classified
CPT/HCPCS: 36415; 71046; 80048

== ENCOUNTER → 2025-04-01 07:53 | Outpatient (REF) | payer MEDICARE, OTHER, SELFPAY | LOC: HWRCS 07:53 | PROVIDERS: ATTENDING PHYSICIAN Physician Assistant; FAMILY PHYSICIAN Internal Medicine | DX: I48.0 Paroxysmal atrial fibrillation (principal); R94.31 Abnormal electrocardiogram [ECG] [EKG]; R07.89 Other chest pain | CPT/HCPCS: 78452; 93017; A9500; J2785 ==

== ENCOUNTER → 2025-04-10 11:11 | Outpatient (REF) | payer MEDICARE, OTHER, SELFPAY ==
[2025-04-10 12:47] LABS: Hematocrit 34.3 % (39.0-52.0); Hemoglobin 11.1 g/dL (13.0-18.0); Mean Corp Hgb Conc. 32.4 g/dL (33.0-37.0); Mean Corpuscular Volume 94.2 fL (80.0-94.0); Nucleated Red Blood Cells % 0 % (-); Platelet Count 271 10^3/uL (130-400); Red Cell Dist. Width 16.6 % (11.5-14.5)
[2025-04-10 13:30] LABS: Blood Urea Nitrogen 24 mg/dl (9-20); Calcium 9.3 mg/dl (8.4-10.2); Carbon Dioxide 25 mmol/L (22-30); Chloride 103 mmol/L (98-107); Glucose 133 mg/dl (70-99); Iron 117 ug/dl (49-181); Potassium 4.0 mmol/L (3.5-5.1); Sodium 136 mmol/L (135-145); eGFR 45.34
[2025-04-10 13:39] LABS: Total Iron Binding Capacity 287 ug/dl (261-462)
[2025-04-10 14:00] LABS: Ferritin 644.0 ng/ml (17.9-464.0)
== END ==
LOC: REG 11:11
PROVIDERS: ATTENDING PHYSICIAN Internal Medicine Hematology & Oncology
DX: C15.8 Malignant neoplasm of overlapping sites of esophagus (principal); D53.9 Nutritional anemia, unspecified
CPT/HCPCS: 36415; 80048; 82728; 83540; 83550; 85025

== ENCOUNTER → 2025-04-16 08:49 | Outpatient (REF) | payer MEDICARE, OTHER, SELFPAY ==
[2025-04-16 09:33] LABS: Hematocrit 34.4 % (39.0-52.0); Hemoglobin 11.0 g/dL (13.0-18.0); Mean Corp Hgb Conc. 32.0 g/dL (33.0-37.0); Mean Corpuscular Volume 94.8 fL (80.0-94.0); Nucleated Red Blood Cells % 0 % (-); Platelet Count 248 10^3/uL (130-400); Red Cell Dist. Width 16.3 % (11.5-14.5)
[2025-04-16 10:09] LABS: Blood Urea Nitrogen 23 mg/dl (9-20); Calcium 9.6 mg/dl (8.4-10.2); Carbon Dioxide 25 mmol/L (22-30); Chloride 103 mmol/L (98-107); Glucose 104 mg/dl (70-99); Iron 90 ug/dl (49-181); Potassium 3.9 mmol/L (3.5-5.1); Sodium 137 mmol/L (135-145); eGFR 53.84
[2025-04-16 11:07] LABS: Ferritin 613.0 ng/ml (17.9-464.0)
== END ==
LOC: REG 08:49
PROVIDERS: ATTENDING PHYSICIAN Internal Medicine Hematology & Oncology; FAMILY PHYSICIAN Internal Medicine
DX: C15.8 Malignant neoplasm of overlapping sites of esophagus (principal); D53.9 Nutritional anemia, unspecified
CPT/HCPCS: 36415; 80048; 82728; 83540; 85025

== ENCOUNTER → 2025-04-23 08:47 | Outpatient (REF) | payer MEDICARE, OTHER, SELFPAY ==
[2025-04-23 09:50] LABS: Hematocrit 33.3 % (39.0-52.0); Hemoglobin 11.2 g/dL (13.0-18.0); Mean Corp Hgb Conc. 33.6 g/dL (33.0-37.0); Mean Corpuscular Volume 94.6 fL (80.0-94.0); Nucleated Red Blood Cells % 0 % (-); Platelet Count 243 10^3/uL (130-400); Red Cell Dist. Width 15.6 % (11.5-14.5)
[2025-04-23 15:32] LABS: Ferritin 533.0 ng/ml (17.9-464.0)
[2025-04-23 15:51] LABS: Blood Urea Nitrogen 24 mg/dl (9-20); Calcium 9.6 mg/dl (8.4-10.2); Carbon Dioxide 27 mmol/L (22-30); Chloride 102 mmol/L (98-107); Glucose 88 mg/dl (70-99); Iron 106 ug/dl (49-181); Potassium 3.8 mmol/L (3.5-5.1); Sodium 136 mmol/L (135-145); eGFR 53.84
== END ==
LOC: REG 08:47
PROVIDERS: ATTENDING PHYSICIAN Specialist; FAMILY PHYSICIAN Internal Medicine; REFERRING PHYSICIAN Internal Medicine Hematology & Oncology
DX: C15.8 Malignant neoplasm of overlapping sites of esophagus (principal); D53.9 Nutritional anemia, unspecified; R97.20 Elevated prostate specific antigen [PSA]
CPT/HCPCS: 36415; 80048; 82728; 83540; 84153; 84154; 85025

== ENCOUNTER 2025-04-24 06:15 | Day surgery (SDC) | payer MEDICARE, OTHER, SELFPAY ==
[2025-04-24 09:10] VITALS: BMI 21.9
[2025-04-24 09:15] VITALS: BMI 21.9
[2025-04-24 09:20] VITALS: BP 154/81
[2025-04-24 10:36] VITALS: BP 154/85
[2025-04-24 10:51] VITALS: BP 156/82
[2025-04-24 11:07] VITALS: BP 169/84
== END 2025-04-24 11:46 | disposition home or self-care (01) ==
LOC: SDS 06:15
PROVIDERS: ATTENDING PHYSICIAN Internal Medicine Gastroenterology
DX: B37.81 Candidal esophagitis (principal); C15.9 Malignant neoplasm of esophagus, unspecified; K29.80 Duodenitis without bleeding; K25.9 Gastric ulcer, unspecified as acute or chronic, without hemorrhage or perforation; K22.89 Other specified disease of esophagus; Z92.3 Personal history of irradiation
CPT/HCPCS: 43239; 88305

== ENCOUNTER → 2025-04-29 08:36 | Outpatient (REF) | payer MEDICARE, OTHER, SELFPAY ==
[2025-04-29 09:31] LABS: Hematocrit 37.3 % (39.0-52.0); Hemoglobin 11.9 g/dL (13.0-18.0); Mean Corp Hgb Conc. 31.9 g/dL (33.0-37.0); Mean Corpuscular Volume 94.4 fL (80.0-94.0); Nucleated Red Blood Cells % 0 % (-); Platelet Count 256 10^3/uL (130-400); Red Cell Dist. Width 15.2 % (11.5-14.5)
[2025-04-29 10:07] LABS: Blood Urea Nitrogen 27 mg/dl (9-20); Calcium 9.8 mg/dl (8.4-10.2); Carbon Dioxide 28 mmol/L (22-30); Chloride 100 mmol/L (98-107); Glucose 94 mg/dl (70-99); Iron 96 ug/dl (49-181); Potassium 4.8 mmol/L (3.5-5.1); Sodium 137 mmol/L (135-145); eGFR 45.34
[2025-04-29 10:28] LABS: Ferritin 432.0 ng/ml (17.9-464.0)
== END ==
LOC: REG 08:36
PROVIDERS: ATTENDING PHYSICIAN Internal Medicine Hematology & Oncology; FAMILY PHYSICIAN Internal Medicine
DX: C15.8 Malignant neoplasm of overlapping sites of esophagus (principal); D53.9 Nutritional anemia, unspecified
CPT/HCPCS: 36415; 80048; 82728; 83540; 85025

== ENCOUNTER → 2025-05-02 08:34 | Outpatient (REF) | payer MEDICARE, OTHER, SELFPAY | LOC: RCS 08:34 | PROVIDERS: ATTENDING PHYSICIAN Physician Assistant; FAMILY PHYSICIAN Internal Medicine | DX: I48.0 Paroxysmal atrial fibrillation (principal); R94.31 Abnormal electrocardiogram [ECG] [EKG]; R07.89 Other chest pain | CPT/HCPCS: 93308; 93321; 93325; Q9950 ==

== ENCOUNTER → 2025-05-06 10:07 | Outpatient (REF) | payer MEDICARE, OTHER, SELFPAY ==
[2025-05-06 10:58] LABS: Hematocrit 35.7 % (39.0-52.0); Hemoglobin 11.5 g/dL (13.0-18.0); Mean Corp Hgb Conc. 32.2 g/dL (33.0-37.0); Mean Corpuscular Volume 93.7 fL (80.0-94.0); Nucleated Red Blood Cells % 0 % (-); Platelet Count 240 10^3/uL (130-400); Red Cell Dist. Width 15.1 % (11.5-14.5)
== END ==
LOC: REG 10:07
PROVIDERS: ATTENDING PHYSICIAN Internal Medicine Hematology & Oncology; FAMILY PHYSICIAN Internal Medicine
DX: C15.8 Malignant neoplasm of overlapping sites of esophagus (principal); D53.9 Nutritional anemia, unspecified
CPT/HCPCS: 36415; 85025

== ENCOUNTER → 2025-05-13 11:48 | Outpatient (REF) | payer MEDICARE, OTHER, SELFPAY ==
[2025-05-13 12:36] LABS: Hematocrit 37.6 % (39.0-52.0); Hemoglobin 12.0 g/dL (13.0-18.0); Mean Corp Hgb Conc. 31.9 g/dL (33.0-37.0); Mean Corpuscular Volume 93.5 fL (80.0-94.0); Nucleated Red Blood Cells % 0 % (-); Platelet Count 233 10^3/uL (130-400); Red Cell Dist. Width 15.0 % (11.5-14.5)
[2025-05-13 12:55] LABS: Blood Urea Nitrogen 40 mg/dl (9-20); Calcium 9.7 mg/dl (8.4-10.2); Carbon Dioxide 27 mmol/L (22-30); Chloride 103 mmol/L (98-107); Glucose 122 mg/dl (70-99); Iron 95 ug/dl (49-181); Potassium 4.3 mmol/L (3.5-5.1); Sodium 138 mmol/L (135-145); eGFR 49.25
[2025-05-13 13:09] LABS: Total Iron Binding Capacity 303 ug/dl (261-462)
[2025-05-13 13:28] LABS: Ferritin 349.0 ng/ml (17.9-464.0)
== END ==
LOC: REG 11:48
PROVIDERS: ATTENDING PHYSICIAN Internal Medicine Hematology & Oncology; FAMILY PHYSICIAN Internal Medicine
DX: C15.8 Malignant neoplasm of overlapping sites of esophagus (principal); D53.9 Nutritional anemia, unspecified
CPT/HCPCS: 36415; 80048; 82728; 83540; 83550; 85025

== ENCOUNTER → 2025-05-16 08:23 | Outpatient (REF) | payer MEDICARE, OTHER, SELFPAY ==
[2025-05-16 08:51] LABS: Glucose 103 mg/dl (70-99)
== END ==
LOC: PET 08:23
PROVIDERS: ATTENDING PHYSICIAN Internal Medicine Hematology & Oncology
DX: C15.8 Malignant neoplasm of overlapping sites of esophagus (principal); D53.9 Nutritional anemia, unspecified
CPT/HCPCS: 36415; 82947

== ENCOUNTER → 2025-05-20 10:27 | Outpatient (REF) | payer MEDICARE, OTHER, SELFPAY ==
[2025-05-20 11:48] LABS: Hematocrit 37.1 % (39.0-52.0); Hemoglobin 12.2 g/dL (13.0-18.0); Mean Corp Hgb Conc. 32.9 g/dL (33.0-37.0); Mean Corpuscular Volume 93.7 fL (80.0-94.0); Nucleated Red Blood Cells % 0 % (-); Platelet Count 251 10^3/uL (130-400); Red Cell Dist. Width 14.6 % (11.5-14.5)
== END ==
LOC: REG 10:27
PROVIDERS: ATTENDING PHYSICIAN Internal Medicine Hematology & Oncology; FAMILY PHYSICIAN Internal Medicine
DX: C15.8 Malignant neoplasm of overlapping sites of esophagus (principal)
CPT/HCPCS: 36415; 85025

== ENCOUNTER → 2025-05-28 09:36 | Outpatient (REF) | payer MEDICARE, OTHER, SELFPAY ==
[2025-05-28 10:50] LABS: Hematocrit 34.8 % (39.0-52.0); Hemoglobin 11.2 g/dL (13.0-18.0); Mean Corp Hgb Conc. 32.2 g/dL (33.0-37.0); Mean Corpuscular Volume 93.8 fL (80.0-94.0); Nucleated Red Blood Cells % 0 % (-); Platelet Count 226 10^3/uL (130-400); Red Cell Dist. Width 14.4 % (11.5-14.5)
[2025-05-28 11:16] LABS: Blood Urea Nitrogen 27 mg/dl (9-20); Calcium 9.6 mg/dl (8.4-10.2); Carbon Dioxide 26 mmol/L (22-30); Chloride 106 mmol/L (98-107); Glucose 106 mg/dl (70-99); Iron 73 ug/dl (49-181); Potassium 3.8 mmol/L (3.5-5.1); Sodium 146 mmol/L (135-145); eGFR 59.26
[2025-05-28 11:25] LABS: Total Iron Binding Capacity 286 ug/dl (261-462)
[2025-05-28 12:28] LABS: Ferritin 290.0 ng/ml (17.9-464.0)
== END ==
LOC: REG 09:36
PROVIDERS: ATTENDING PHYSICIAN Internal Medicine Hematology & Oncology; FAMILY PHYSICIAN Internal Medicine
DX: C15.8 Malignant neoplasm of overlapping sites of esophagus (principal); D53.9 Nutritional anemia, unspecified
CPT/HCPCS: 36415; 80048; 82728; 83540; 83550; 85025

== ENCOUNTER → 2025-07-08 07:55 | Outpatient (REF) | payer MEDICARE, OTHER, SELFPAY ==
[2025-07-08 09:43] LABS: Hematocrit 37.5 % (39.0-52.0); Hemoglobin 12.0 g/dL (13.0-18.0); Mean Corp Hgb Conc. 32.0 g/dL (33.0-37.0); Mean Corpuscular Volume 92.6 fL (80.0-94.0); Nucleated Red Blood Cells % 0 % (-); Platelet Count 287 10^3/uL (130-400); Red Cell Dist. Width 13.5 % (11.5-14.5)
[2025-07-08 10:39] LABS: Blood Urea Nitrogen 31 mg/dl (9-20); Calcium 9.4 mg/dl (8.4-10.2); Carbon Dioxide 26 mmol/L (22-30); Chloride 105 mmol/L (98-107); Glucose 89 mg/dl (70-99); Iron 66 ug/dl (49-181); Potassium 4.4 mmol/L (3.5-5.1); Sodium 137 mmol/L (135-145); eGFR 45.34
[2025-07-08 11:08] LABS: Ferritin 162.0 ng/ml (17.9-464.0)
== END ==
LOC: REG 07:55
PROVIDERS: ATTENDING PHYSICIAN Internal Medicine Hematology & Oncology; FAMILY PHYSICIAN Internal Medicine
DX: C15.8 Malignant neoplasm of overlapping sites of esophagus (principal); D53.9 Nutritional anemia, unspecified
CPT/HCPCS: 36415; 80048; 82728; 83540; 85025

== ENCOUNTER → 2025-07-15 12:43 | Outpatient (REF) | payer MEDICARE, OTHER, SELFPAY ==
[2025-07-15 13:21] LABS: Hematocrit 38.0 % (39.0-52.0); Hemoglobin 12.0 g/dL (13.0-18.0); Mean Corp Hgb Conc. 31.6 g/dL (33.0-37.0); Mean Corpuscular Volume 97.4 fL (80.0-94.0); Nucleated Red Blood Cells % 0 % (-); Platelet Count 269 10^3/uL (130-400); Red Cell Dist. Width 13.5 % (11.5-14.5)
[2025-07-15 13:54] LABS: Blood Urea Nitrogen 26 mg/dl (9-20); Calcium 9.6 mg/dl (8.4-10.2); Carbon Dioxide 28 mmol/L (22-30); Chloride 102 mmol/L (98-107); Glucose 87 mg/dl (70-99); Potassium 4.0 mmol/L (3.5-5.1); Sodium 134 mmol/L (135-145); eGFR 53.84
== END ==
LOC: REG 12:43
PROVIDERS: ATTENDING PHYSICIAN Internal Medicine Hematology & Oncology; FAMILY PHYSICIAN Internal Medicine
DX: C15.8 Malignant neoplasm of overlapping sites of esophagus (principal); D53.9 Nutritional anemia, unspecified
CPT/HCPCS: 36415; 80048; 85025

== ENCOUNTER → 2025-07-22 09:44 | Outpatient (REF) | payer MEDICARE, OTHER, SELFPAY ==
[2025-07-22 11:26] LABS: Hematocrit 37.6 % (39.0-52.0); Hemoglobin 12.0 g/dL (13.0-18.0); Mean Corp Hgb Conc. 31.9 g/dL (33.0-37.0); Mean Corpuscular Volume 94.9 fL (80.0-94.0); Nucleated Red Blood Cells % 0 % (-); Platelet Count 263 10^3/uL (130-400); Red Cell Dist. Width 13.4 % (11.5-14.5)
[2025-07-22 12:04] LABS: Blood Urea Nitrogen 31 mg/dl (9-20); Calcium 9.4 mg/dl (8.4-10.2); Carbon Dioxide 27 mmol/L (22-30); Chloride 102 mmol/L (98-107); Glucose 83 mg/dl (70-99); Iron 95 ug/dl (49-181); Potassium 4.1 mmol/L (3.5-5.1); Sodium 136 mmol/L (135-145); eGFR 45.34
[2025-07-22 12:13] LABS: Total Iron Binding Capacity 272 ug/dl (261-462)
[2025-07-22 13:16] LABS: Ferritin 171.0 ng/ml (17.9-464.0)
== END ==
LOC: REG 09:44
PROVIDERS: ATTENDING PHYSICIAN Internal Medicine Hematology & Oncology; FAMILY PHYSICIAN Internal Medicine
DX: C15.8 Malignant neoplasm of overlapping sites of esophagus (principal); D53.9 Nutritional anemia, unspecified
CPT/HCPCS: 36415; 80048; 82728; 83540; 83550; 85025

== ENCOUNTER → 2025-07-24 07:11 | Outpatient (REF) | payer MEDICARE, OTHER, SELFPAY | LOC: RAD 07:11 | PROVIDERS: ATTENDING PHYSICIAN Internal Medicine Hematology & Oncology; FAMILY PHYSICIAN Internal Medicine | DX: C15.8 Malignant neoplasm of overlapping sites of esophagus (principal); D53.9 Nutritional anemia, unspecified | CPT/HCPCS: 71260; 74160; Q9967 ==

== ENCOUNTER → 2025-07-29 09:00 | Outpatient (REF) | payer MEDICARE, OTHER, SELFPAY ==
[2025-07-29 10:04] LABS: Hematocrit 36.8 % (39.0-52.0); Hemoglobin 12.1 g/dL (13.0-18.0); Mean Corp Hgb Conc. 32.9 g/dL (33.0-37.0); Mean Corpuscular Volume 92.2 fL (80.0-94.0); Nucleated Red Blood Cells % 0 % (-); Platelet Count 224 10^3/uL (130-400); Red Cell Dist. Width 13.2 % (11.5-14.5)
[2025-07-29 11:03] LABS: PSA, Total - Diagnostic 2.81 ng/ml (0.0-4.0)
== END ==
LOC: REG 09:00
PROVIDERS: ATTENDING PHYSICIAN Internal Medicine Hematology & Oncology; FAMILY PHYSICIAN Internal Medicine; REFERRING PHYSICIAN Specialist
DX: C15.8 Malignant neoplasm of overlapping sites of esophagus (principal); D53.9 Nutritional anemia, unspecified; C61 Malignant neoplasm of prostate
CPT/HCPCS: 36415; 84153; 85025

== ENCOUNTER → 2025-08-05 09:58 | Outpatient (REF) | payer MEDICARE, OTHER, SELFPAY ==
[2025-08-05 10:58] LABS: Hematocrit 36.3 % (39.0-52.0); Hemoglobin 12.1 g/dL (13.0-18.0); Mean Corp Hgb Conc. 33.3 g/dL (33.0-37.0); Mean Corpuscular Volume 92.6 fL (80.0-94.0); Nucleated Red Blood Cells % 0 % (-); Platelet Count 233 10^3/uL (130-400); Red Cell Dist. Width 13.3 % (11.5-14.5)
[2025-08-05 12:34] LABS: Blood Urea Nitrogen 27 mg/dl (9-20); Calcium 9.3 mg/dl (8.4-10.2); Carbon Dioxide 26 mmol/L (22-30); Chloride 102 mmol/L (98-107); Glucose 89 mg/dl (70-99); Iron 90 ug/dl (49-181); Potassium 4.0 mmol/L (3.5-5.1); Sodium 135 mmol/L (135-145); eGFR 53.84
[2025-08-05 12:43] LABS: Total Iron Binding Capacity 299 ug/dl (261-462)
[2025-08-05 13:12] LABS: Ferritin 157.0 ng/ml (17.9-464.0)
== END ==
LOC: REG 09:58
PROVIDERS: ATTENDING PHYSICIAN Internal Medicine Hematology & Oncology; FAMILY PHYSICIAN Internal Medicine
DX: C15.8 Malignant neoplasm of overlapping sites of esophagus (principal); D53.9 Nutritional anemia, unspecified
CPT/HCPCS: 36415; 80048; 82728; 83540; 83550; 85025

== ENCOUNTER → 2025-08-13 09:23 | Outpatient (REF) | payer MEDICARE, OTHER, SELFPAY ==
[2025-08-13 10:52] LABS: Hematocrit 36.2 % (39.0-52.0); Hemoglobin 12.1 g/dL (13.0-18.0); Mean Corp Hgb Conc. 33.4 g/dL (33.0-37.0); Mean Corpuscular Volume 92.3 fL (80.0-94.0); Nucleated Red Blood Cells % 0 % (-); Platelet Count 229 10^3/uL (130-400); Red Cell Dist. Width 13.2 % (11.5-14.5)
[2025-08-13 11:34] LABS: Blood Urea Nitrogen 30 mg/dl (9-20); Calcium 9.5 mg/dl (8.4-10.2); Carbon Dioxide 24 mmol/L (22-30); Chloride 104 mmol/L (98-107); Glucose 87 mg/dl (70-99); Iron 131 ug/dl (49-181); Potassium 4.0 mmol/L (3.5-5.1); Sodium 135 mmol/L (135-145); eGFR 45.34
[2025-08-13 11:42] LABS: Ferritin 169.0 ng/ml (17.9-464.0)
[2025-08-13 11:43] LABS: Total Iron Binding Capacity 291 ug/dl (261-462)
== END ==
LOC: REG 09:23
PROVIDERS: ATTENDING PHYSICIAN Internal Medicine Hematology & Oncology; FAMILY PHYSICIAN Internal Medicine
DX: C15.8 Malignant neoplasm of overlapping sites of esophagus (principal); D53.9 Nutritional anemia, unspecified
CPT/HCPCS: 36415; 80048; 82728; 83540; 83550; 85025